=== PATIENT | female | born 1940 | race Caucasian/White ===

== ENCOUNTER 2020-07-22 14:02 | Outpatient (CLI) | payer MEDICARE, SELFPAY | END 2020-07-22 14:03 | disposition home or self-care (01) | LOC: ANHCOVIDVC 14:02 | PROVIDERS: PCP Family Medicine | DX: Z23 Encounter for immunization (principal) | CPT/HCPCS: 0001A; 91300 ==

== ENCOUNTER 2020-08-12 14:02 | Outpatient (CLI) | payer MEDICARE, SELFPAY | END 2020-08-12 14:03 | disposition home or self-care (01) | LOC: ANHCOVIDVC 14:02 | PROVIDERS: PCP Family Medicine | DX: Z23 Encounter for immunization (principal) | CPT/HCPCS: 0002A; 91300 ==

== ENCOUNTER 2021-03-02 08:23 | Outpatient (CLI) | payer MEDICARE, SELFPAY ==
--- NOTE | ~2021-03-02 | XR_ITS ---
EXAMINATION: XR abdomen/kub 1V DATE: 03/02/2021 09:21 INDICATION: Unspecified abdominal pain. TECHNIQUE: A supine view of the abdomen on 2 radiographs was obtained. COMPARISON: None. FINDINGS: There are no dilated loops of bowel. There is a small volume of stool in the colon. Calcifi cations in the pelvis are likely phleboliths. There are vascular stents in the thighs. IMPRESSION: 1. Normal bowel gas pattern. Reviewed, dictated and finalized at location A.
[2021-03-02 08:30] VITALS: PULSE 82; O2SAT 82
[2021-03-02 08:31] VITALS: O2SAT 90
[2021-03-02 08:32] VITALS: PULSE 110; O2SAT 86
[2021-03-02 08:33] VITALS: O2SAT 87
[2021-03-02 08:34] VITALS: O2SAT 91
[2021-03-02 08:45] VITALS: PULSE 83; O2SAT 93
--- NOTE | 2021-03-02 09:30 | HOMEO2EVAL ---
Evaluation was performed at [facility] Home Oxygen Evaluation RC: Home Oxygen (O2) Evaluation Start: 03/02/21 09:23 Freq: Status: Active Protocol: RPE Activity Type Activity Date Activity User E-Sign Co-Sign Detail Recorded Client Recorded Date Recorded By Document 03/02/21 08:30 ELVIRA [email or web address] 03/02/21 09:30 ELVIRA Document 03/02/21 08:31 ELVIRA [email or web address] 03/02/21 09:30 ELVIRA Document 03/02/21 08:32 ELVIRA [email or web address] 03/02/21 09:30 ELVIRA Document 03/02/21 08:33 ELVIRA [email or web address] 03/02/21 09:30 ELVIRA Document 03/02/21 08:34 ELVIRA [email or web address] 03/02/21 09:30 ELVIRA Document 03/02/21 08:45 ELVIRA [email or web address] 03/02/21 09:30 ELVIRA 03/02/21 03/02/21 03/02/21 08:30 08:31 08:32 Home O2 Evaluation Test Phase Resting Resting Exercise Oxygen Delivery Room Air Nasal Cannula Nasal Cannula Oxygen Flow Rate (L/min) 1 1 Pulse Oximetry (90-100 %) 82 L 90 86 L Pulse Rate (60-100 beats/min) 82 110 H Ambulation Distance (feet) Home Oxygen Evaluation Comments Treatment Charges O2 Evaluation - Outpatient 03/02/21 03/02/21 03/02/21 08:33 08:34 08:45 Home O2 Evaluation Test Phase Exercise Exercise Resting Oxygen Delivery Nasal Cannula Nasal Cannula Nasal Cannula Oxygen Flow Rate (L/min) 2 3 1 Pulse Oximetry (90-100 %) 87 L 91 93 Pulse Rate (60-100 beats/min) 83 Ambulation Distance (feet) 400 Home Oxygen Evaluation Comments Pt requires 1 L at rest and 3L with activity Treatment Charges
--- NOTE | 2021-03-02 09:30 | PCRCNOTE ---
Called office to receive home o2 eval order for home o2 needs. faxed over eval to office staff
== END 2021-03-02 08:24 | disposition home or self-care (01) ==
PROVIDERS: PCP Family Medicine; Referring Provider Physician Assistant; Visit Provider Family Medicine
DX: R10.9 Unspecified abdominal pain (principal)
CPT/HCPCS: 74018; 94618

== ENCOUNTER 2021-03-24 11:43 | Outpatient (CLI) | payer MEDICARE, SELFPAY ==
--- NOTE | ~2021-03-24 | XR_ITS ---
XR lumbar spine min 4V 03/24/2021 12:42 Indication: Low back pain Procedure: 5 views lumbar spine Comparison: No prior studies for comparison. Findings: There is grade 1 spondylolisthesis at L4-5. There is grade 2 spondylolisthesis at L5-S1. Th ere is disc narrowing at each of these levels. There is facet hypertrophy at these levels. There is a therosclerosis of the aorta. Osteopenia. No acute fracture is identified. Impression: 1: Moderate lower lumbar spondylosis with spondylolisthesis at L4-5 and L5-S1. Reviewed, dictated and finalized at location A. RINARY PATHOLOGIST Impression: 1: Moderate lower lumbar spondylosis with spondylolisthesis at L4-5 and L5-S1.
--- NOTE | ~2021-03-24 | XR_ITS ---
EXAMINATION: XR sacroiliac joints min 3V DATE: 03/24/2021 12:42 INDICATION: Sacrococcygeal disorders, not elsewhere classified. Low back pain. TECHNIQUE: 3 views of the sacroiliac joints were obtained. COMPARISON: None. FINDINGS: Bone alignment is normal. No fracture. There is severe lower lumbar spondylosis. The sacroi liac joints are normal. The hip joint spaces are normal. There are vascular stents in the inguinal re gions. IMPRESSION: 1. Normal sacroiliac joints. No evidence of inflammatory arthropathy. 2. Severe lower lumbar spondylosis. Reviewed, dictated and finalized at location A. RONMENTAL HEALTH AIDE
== END 2021-03-24 11:44 | disposition home or self-care (01) ==
LOC: ANHIMG 11:53
PROVIDERS: PCP Family Medicine; Visit Provider Family Medicine
DX: M53.3 Sacrococcygeal disorders, not elsewhere classified (principal); M47.896 Other spondylosis, lumbar region
CPT/HCPCS: 72110; 72202

== ENCOUNTER 2021-04-13 11:54 | Outpatient (CLI) | payer MEDICARE, SELFPAY ==
[2021-04-13 13:00] VITALS: PULSE 86; O2SAT 82
[2021-04-13 13:01] VITALS: O2SAT 84
[2021-04-13 13:02] VITALS: PULSE 90; O2SAT 90
[2021-04-13 13:05] VITALS: PULSE 105; O2SAT 87
[2021-04-13 13:07] VITALS: PULSE 108; O2SAT 91
[2021-04-13 13:15] VITALS: PULSE 85; O2SAT 93
--- NOTE | 2021-04-13 13:33 | HOMEO2EVAL ---
Evaluation was performed at [facility] Home Oxygen Evaluation RC: Home Oxygen (O2) Evaluation Start: 04/13/21 13:30 Freq: Status: Active Protocol: RPE Activity Type Activity Date Activity User E-Sign Co-Sign Detail Recorded Client Recorded Date Recorded By Document 04/13/21 13:00 ELVIRA [email or web address] 04/13/21 13:33 ELVIRA Document 04/13/21 13:01 ELVIRA [email or web address] 04/13/21 13:33 ELVIRA Document 04/13/21 13:02 ELVIRA [email or web address] 04/13/21 13:33 ELVIRA Document 04/13/21 13:05 ELVIRA [email or web address] 04/13/21 13:33 ELVIRA Document 04/13/21 13:07 ELVIRA [email or web address] 04/13/21 13:33 ELVIRA Document 04/13/21 13:15 ELVIRA [email or web address] 04/13/21 13:33 ELVIRA 04/13/21 04/13/21 04/13/21 13:00 13:01 13:02 Home O2 Evaluation Test Phase Resting Resting Resting Oxygen Delivery Room Air Nasal Cannula Nasal Cannula Oxygen Flow Rate (L/min) 1 2 Pulse Oximetry (90-100 %) 82 L 84 L 90 Pulse Rate (60-100 beats/min) 86 90 Home Oxygen Evaluation Comments Treatment Charges O2 Evaluation - Outpatient 04/13/21 04/13/21 04/13/21 13:05 13:07 13:15 Home O2 Evaluation Test Phase Exercise Exercise Resting Oxygen Delivery Nasal Cannula Nasal Cannula Nasal Cannula Oxygen Flow Rate (L/min) 2 3 2 Pulse Oximetry (90-100 %) 87 L 91 93 Pulse Rate (60-100 beats/min) 105 H 108 H 85 Home Oxygen Evaluation Comments Pt requires home oxygen --- 2 at rest and 3 with activity/ exertion Treatment Charges
--- NOTE | 2021-04-13 13:34 | PCRCNOTE ---
home o2 eval faxed to [facility] office staff
== END 2021-04-13 11:55 | disposition home or self-care (01) ==
LOC: ANHPFT 11:56
PROVIDERS: PCP Family Medicine; Visit Provider Family Medicine
DX: J44.9 Chronic obstructive pulmonary disease, unspecified (principal); R09.02 Hypoxemia
CPT/HCPCS: 94618

== ENCOUNTER 2021-05-26 08:28 | Outpatient (CLI) | payer MEDICARE, SELFPAY ==
--- NOTE | ~2021-05-26 | CT_ITS ---
EXAMINATION: CT diagnostic chest wo con EXAM DATE: 05/26/2021 10:42 INDICATION: R06.00 - Dyspnea, unspecified. TECHNIQUE: Spiral CT of the chest without contrast. Axial, coronal and sagittal images of the chest were reviewed. Coronal maximum intensity pixel images of chest reviewed. The dose-length product ( DLP) for this examination was 996.03 mGy-cm. The exposure was tailored according to patient size (au to mA exposure control), and iterative reconstruction (ASIR) was used as additional dose reduction te chnique. There is no prior study for comparison. FINDINGS: Subsegmental linear lingular, right middle lobe atelectasis. Trace right pleural effusion . Tracheobronchial tree is patent. There is mild emphysema. No consolidation. There is no mediastina l, hilar or axillary lymphadenopathy. There is no pneumothorax. There is cardiomegaly. The main, central pulmonary arteries are dilated which can indicate elevated pulmonary arterial pressure, pulmo nary arterial hypertension. There is pulmonary vascular congestion. There is mild coronary arterial calcification, arterial sclerosis. Small amount of perihepatic ascites. There is small sliding sindy roesophageal hiatal hernia. There is thoracic spondylosis without osteoblastic or osteolytic lesions identified. Mild to moderate compression fracture of T8, mild at T6 and T4. These appear chronic. IMPRESSION: 1. Cardiomegaly, pulmonary vascular congestion. Dilated pulmonary arteries. 2. Subsegmental right middle lobe, lingular atelectasis. 3. Trace right pleural effusion. Small ascites. 4. Mild emphysema. Reviewed, dictated and finalized at location A. AL HEALTH PROGRAM DIRECTOR
--- NOTE | 2021-05-26 08:43 | ECHO_ITS ---
Patient Info Name: Elda Dalal Age: 80 years : 1940 Gender: Female Ht: 64 in Wt: 240 lbs BSA: 2.27 m2 HR: 93 bpm BP: 159 / 78 mmHg Technical Quality: Poor Exam Date: 05/26/2021 8:52 AM [facility] Status: [facility]patient Admit Date: 05/26/2021 Staff Ordering Physician: Keya Ceballos MD Fuse Cutter: Sherrell Barron RDCS Attending Provider: Keya Ceballos MD Referring Physician: Tucker WALTERS; Exam Type: CA echo dop color flow w con Study Info Indications R60.9 - Edema, unspecified Complete two-dimensional, color flow and Doppler transthoracic echocardiogram is performed with contrast to opacify the left ventricle and to improve the deliniation of the left ventricle endocardial borders. Contrast/Agitated Saline Contrast/Ag. Saline: Definity Amount: 2.00 ml Administered By: Bryan Kruger, RN New IV Access: Antecubital Space and Left Site Condition: IV removed Reason for Poor Study: patient body habitus Summary 1. Technically suboptimal study due to poor sonographic images. 2. Left ventricular chamber dimension is normal. 3. Definity contrast administered improved wall motion interpretation. 4. Left ventricular systolic function is normal, estimated at 65-70%. 5. The left ventricular diastolic function is normal. 6. E/e' 7 is not elevated. 7. Right ventricular chamber dimension is severely enlarged. 8. Left atrial chamber dimension is moderately enlarged. 9. Right atrial chamber dimension is severely enlarged. 10. There is mild mitral valve regurgitation. 11. Severe pulmonary hypertension, estimated pulmonary arterial systolic pressure is 65 mmHg. 12. Dilated inferior vena cava with >50% collapse upon inspiration consistent with elevated right atrial pressure, 10 mmHg. Left Ventricle E/e' 7 is not elevated. Technically suboptimal study due to poor sonographic images. Definity contrast administered improved wall motion interpretation. Left ventricular chamber dimension is normal. Left ventricular systolic function is normal, estimated at 65-70%. The left ventricular diastolic function is normal. Right Ventricle Right ventricular systolic function is normal and with normal TAPSE 2.6 cm. Right ventricular chamber dimension is severely enlarged. Left Atria Left atrial chamber dimension is moderately enlarged. Right Atria Right atrial chamber dimension is severely enlarged. Aortic Valve The aortic valve is probable trileaflet. There is no aortic valve stenosis. There is no aortic valve regurgitation. Pulmonic Valve There is no pulmonic regurgitation. Mitral Valve There is no mitral valve stenosis. There is mild mitral valve regurgitation. Tricuspid Valve There is no tricuspid valve regurgitation. Severe pulmonary hypertension, estimated pulmonary arterial systolic pressure is 65 mmHg. Pericardium/Pleural There is no pericardial effusion. Inferior Vena Cava Dilated inferior vena cava with >50% collapse upon inspiration consistent with elevated right atrial pressure, 10 mmHg. Aorta The aortic root size at the sinus of Valsalva is normal. Left Ventricular Outflow Tract Name Value Normal LVOT 2D
[2021-05-26] MEDS: PERFLUTREN LIPID MICROSPHERES 1.5 ML VIAL DILUTED TO 10 ML TOTAL VOLUME IV PUSH (10:51)
== END 2021-05-26 08:29 | disposition home or self-care (01) ==
PROVIDERS: PCP Family Medicine; Visit Provider Family Medicine
DX: R06.00 Dyspnea, unspecified (principal); R60.9 Edema, unspecified; I51.7 Cardiomegaly; J43.9 Emphysema, unspecified
CPT/HCPCS: 71250; C8929; Q9957

== ENCOUNTER 2021-06-01 07:50 | Outpatient (CLI) | payer MEDICARE, SELFPAY ==
--- NOTE | ~2021-06-01 | US_ITS ---
EXAMINATION: US venous doppler [facility] DATE: 06/01/2021 10:22 INDICATION: Lower limb swelling TECHNIQUE: Grayscale ultrasound images without and with compression and Doppler ultrasound images of the bilateral lower extremity veins were obtained. COMPARISON: None. FINDINGS: The visualized portions of right common femoral vein, profunda (deep) femoral vein, femoral vein, pop liteal vein, posterior tibial veins, peroneal veins, gastrocnemius vein and greater saphenous vein ou tflow are patent. The visualized portions of left common femoral vein, profunda femoral vein, femoral vein, popliteal v ein, posterior tibial veins, peroneal veins, gastrocnemius vein and greater saphenous vein outflow ar e patent. IMPRESSION: 1. No deep venous thrombosis in either lower limb. Reviewed, dictated and finalized at location A. LINER
== END 2021-06-01 07:51 | disposition home or self-care (01) ==
LOC: ANHIMG 07:52
PROVIDERS: PCP Family Medicine; Visit Provider Family Medicine
DX: R60.9 Edema, unspecified (principal); R06.00 Dyspnea, unspecified
CPT/HCPCS: 93970

== ENCOUNTER 2021-09-06 08:05 | Outpatient (CLI) | payer MEDICARE, SELFPAY ==
[2021-09-06] VITALS (7 sets, daily range): PULSE 87–124; O2SAT 85–91
--- NOTE | 2021-09-06 11:22 | HOMEO2EVAL ---
Evaluation was performed at [facility] Home Oxygen Evaluation RC: Home Oxygen (O2) Evaluation Start: 09/06/21 11:11 Freq: Status: Active Protocol: RPE Activity Type Activity Date Activity User E-Sign Co-Sign Detail Recorded Client Recorded Date Recorded By Document 09/06/21 08:30 DJO [email or web address] 09/06/21 11:22 DJO Document 09/06/21 08:35 DJO [email or web address] 09/06/21 11:22 DJO Document 09/06/21 08:40 DJO [email or web address] 09/06/21 11:22 DJO Document 09/06/21 08:45 DJO [email or web address] 09/06/21 11:22 DJO Document 09/06/21 08:50 DJO [email or web address] 09/06/21 11:22 DJO Document 09/06/21 08:55 DJO [email or web address] 09/06/21 11:22 DJO Document 09/06/21 09:10 DJO [email or web address] 09/06/21 11:22 DJO 09/06/21 09/06/21 09/06/21 08:30 08:35 08:40 Home O2 Evaluation Test Phase Resting Resting Resting Oxygen Delivery Room Air Nasal Cannula Nasal Cannula Oxygen Flow Rate (L/min) 1 2 Pulse Oximetry (90-100 %) 85 L 86 L 87 L Pulse Rate (60-100 beats/min) 87 87 90 Rate of Perceived Exertion (PE) Ambulation Distance (feet) Ambulation Distance (meters) Treatment Charges O2 Evaluation - Outpatient 09/06/21 09/06/21 09/06/21 08:45 08:50 08:55 Home O2 Evaluation Test Phase Resting Resting Exercise Oxygen Delivery Nasal Cannula Nasal Cannula Nasal Cannula Oxygen Flow Rate (L/min) 3 4 4 Pulse Oximetry (90-100 %) 88 L 90 87 L Pulse Rate (60-100 beats/min) 87 87 124 H Rate of Perceived Exertion (PE) 19 Very, Very Hard Ambulation Distance (feet) 75 Ambulation Distance (meters) 22.85 Treatment Charges 09/06/21 09:10 Home O2 Evaluation Test Phase Resting Oxygen Delivery Nasal Cannula Oxygen Flow Rate (L/min) 4 Pulse Oximetry (90-100 %) 91 Pulse Rate (60-100 beats/min) 90 Rate of Perceived Exertion (PE) Ambulation Distance (feet) Ambulation Distance (meters) Treatment Charges
--- NOTE | 2021-09-06 11:24 | PCRCNOTE ---
PT CAME IN FOR A PULMONARY FUNCTION TEST AND WAS UNABLE TO DO TESTING. PT VERY SHORT OF BREATH AND GASPING AFTER HOME O2 EVAL. PT STATES SHE IS TOO SHORT OF BREATH FOR TESTING. DR. POST'S OFFICE NOTIFIED.
== END 2021-09-06 08:06 | disposition home or self-care (01) ==
PROVIDERS: PCP Family Medicine; Visit Provider Internal Medicine Pulmonary Disease
DX: J44.9 Chronic obstructive pulmonary disease, unspecified (principal)
CPT/HCPCS: 94618

== ENCOUNTER 2021-11-02 08:07 | Outpatient (CLI) | payer MEDICARE, SELFPAY ==
--- NOTE | ~2021-11-02 | CT_ITS ---
EXAMINATION: CTA chest PE protocol DATE: 11/02/2021 08:45 INDICATION: Dyspnea. History of COPD. TECHNIQUE: Computed tomography angiography (CTA) of the chest was performed with 100 mL Omnipaque-350 intravenous contrast timed to evaluate the pulmonary arteries. Coronal maximum intensity projection 3D-reconstructions were created by the technologist. Automated exposure control and iterative reconst ruction technique were employed. Exam dose: 963.29 mGy-cm total exam DLP. COMPARISON: 05/26/2021 CTA chest FINDINGS: There is diagnostic contrast enhancement of the pulmonary arteries and no evidence of pulmo nary embolism. Prominent cardiomegaly. No pericardial effusion. There is extensive calcification of the thoracic aorta but no thoracic aortic aneurysm. Slight right pleural effusion. Mild nonspecific bilateral hilar lymphadenopathy, likely reactive. There are patchy groundglass infil trates throughout the lungs, with some atelectasis or scarring of the right middle lobe medial segmen t and lingula. Mild ascites. There is severe degenerative disc disease at C5-6 and C6-7. Compression fracture from is a T4, T6 and to a greater extent T8 are noted. These appear stable since 05/26/2021. IMPRESSION: No evidence of pulmonary embolism Prominent cardiomegaly, patchy diffuse bilateral groundglass infiltrates suggesting pulmonary edema, small right pleural effusion. Pneumonia is not excluded Lingular and medial segment middle lobe atelectasis Chronic T4, T6 and T8 compression fracture deformities Reviewed, dictated and finalized at Location A. Reviewed, dictated and finalized at location A. IMPRESSION: No evidence of pulmonary embolism Prominent cardiomegaly, patchy diffuse bilateral groundglass infiltrates sugges ting pulmonary edema, small right pleural effusion. Pneumonia is not excluded Lingular and medial segment middle lobe atelectasis Chronic T4, T6 and T8 compression fracture deformities
[2021-11-02 08:37] LABS: Estimated Glomerular Filt Rate 43
== END 2021-11-02 08:08 | disposition home or self-care (01) ==
PROVIDERS: PCP Family Medicine; Visit Provider Family Medicine
DX: I27.20 Pulmonary hypertension, unspecified (principal); R06.00 Dyspnea, unspecified
CPT/HCPCS: 71275; Q9967

== ENCOUNTER 2021-11-03 13:17 | Inpatient (IN) | payer MEDICARE, SELFPAY ==
[2021-11-03] VITALS (14 sets, daily range): BP systolic 109–149; BP diastolic 51–72; PULSE 80–105; RESP 18–23; TEMP 36.6–37; O2SAT 88–97; BMI 51.5
--- NOTE | ~2021-11-03 | US_ITS ---
EXAMINATION: US art doppler w press LE BI DATE: 11/03/2021 17:04 INDICATION: Bilateral lower limb pain TECHNIQUE: Doppler waveforms of the brachial and lower extremity arteries were obtained. Patient term inated the study prior to obtaining segmental pressures. COMPARISON: None. FINDINGS: There are biphasic waveforms throughout the arteries of the right lower limb with mildly delayed syst olic upstrokes at the right superficial femoral arteries, borderline delayed upstrokes at the right c ommon femoral artery and with normal systolic upstrokes at the right popliteal, posterior tibial and dorsalis pedis arteries. Biphasic waveforms with brisk systolic upstrokes and left common femoral, freitas perficial femoral, posterior tibial and dorsalis pedis arteries. IMPRESSION: 1. Significantly limited study with patient terminated the study prior to obtaining segmental pressur es precluding assessment of ABIs and TBI's. 2. Delayed systolic upstrokes at the right superficial femoral artery and borderline delayed upstroke s at the right common femoral artery suggesting more proximal arterial occlusive disease. Reviewed, dictated and finalized at location B. IMPRESSION: 1. Significantly limited study with patient terminated the study prior to obtai devorah segmental pressures precluding assessment of ABIs and TBI's. 2. Delayed systolic upstrokes at the right superficial femoral artery and borde rline delayed upstrokes at the right common femoral artery suggesting more prox imal arterial occlusive disease.
--- NOTE | ~2021-11-03 | US_ITS ---
EXAMINATION: US venous doppler [facility] DATE: 11/04/2021 09:13 INDICATION: edema . TECHNIQUE: Grayscale images without and with compression and Doppler images of the bilateral lower ex tremity veins were obtained. COMPARISON: None FINDINGS: Patient unable to tolerate compression throughout most examination. The bilateral popliteal veins are patent and adequately assessed. No other vein in either lower extremity was able to be thoroughly ev aluated, however no visible thrombus detected and no abnormality to waveform or augmentation. 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 . IMPRESSION: 1. Nondiagnostic ultrasound evaluation of the bilateral lower extremities. 2. No popliteal vein DVT (these are the only veins fully evaluated) 3. 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 Reviewed, dictated and finalized at location K.
--- NOTE | ~2021-11-03 | XR_ITS ---
EXAMINATION: XR chest 1V portable INDICATION: Cough and shortness of breath TECHNIQUE: Portable AP chest at 1403 hours COMPARISON: Chest CT from yesterday FINDINGS: There are diffuse interstitial and airspace opacities throughout all lung zones. Cardiomega ly is noted. No pleural effusion or pneumothorax. There is calcified atherosclerosis. IMPRESSION: 1. Diffuse lung disease, consistent with pneumonia and/or pulmonary edema. Reviewed, dictated and finalized at location F.
--- NOTE | 2021-11-03 13:28 | ECG_ITS ---
Measurements Intervals [place] Rate: 84 P: 55 MI: 130 QRS: 64 QRSD: 93 T: 50 QT: 383 QTc: 453 Interpretive Statements SINUS RHYTHM LOW QRS VOLTAGE IN PRECORDIAL LEADS [QRS DEFLECTION < 1.0 mV IN CHEST LEADS] NO PREVIOUS ECG AVAILABLE FOR COMPARISON Electronically Signed On 11-03-2021 16:53:51 CDT by Wolf Rizzo M.D.
--- NOTE | 2021-11-03 13:44 | ED.GENADULT ---
HPI - General Adult General Chief complaint: Unspecified Stated complaint: edema Time Seen by Provider: 11/03/21 13:18 Source: RN notes reviewed History of Present Illness HPI narrative: Patient presents emergency department from home for increased swelling. Patient states she is have aggressively worsening swelling in her bilateral lower extremities over the past month states been associated with worsening shortness of breath that is worse with movement. States that she has a history of COPD and is chronically on 6 L nasal cannula at all times. Patient states she had been on Lasix before in the past but had felt like it was not draining for and stopped taking Lasix several months ago. She denies any fevers or chills chest pain abdominal pain nausea vomiting or any other symptoms Related Data Home Medications Medication Instructions Recorded Confirmed aspirin 81 mg tablet,delayed 81 mg PO DAILY 05/17/19 11/03/21 release (Miguel Low Dose Aspirin) amlodipine 10 mg tablet 10 mg PO DAILY 11/03/21 11/03/21 celecoxib 100 mg capsule 100 mg PO DAILY PRN Muscle Pain 11/03/21 11/03/21 Allergies Allergy/AdvReac Type Severity Reaction Status Date / Time No Known Allergies Allergy Verified 11/03/21 13:49 Review of Systems Review of Systems: Gen.: Denies fevers or chills Eyes: Denies eye pain or visual change ENT: Denies congestion Respiratory: See HPI CV: Denies chest pain or palpitations GI: Denies abdominal pain nausea, emesis or diarrhea Musculoskeletal: Denies back pain or muscle pain reports edema Neuro: Denies numbness, tingling, weakness or focal weakness Skin: Denies rash Except as documented, all other systems reviewed and negative [facility] Past Medical History Medical History Chronic obstructive pulmonary disease Chronic respiratory failure with hypoxia, on home oxygen therapy Depression Glaucoma Hyperlipidemia Hypertension Lumbar disc disease Lymphedema Peripheral vascular disease Pulmonary hypertension Surgical History Surgical History (Updated 11/03/21 @ 16:32 by Cecily Sandoval PA-C) History of bilateral carotid endarterectomy History of bilateral cataract extraction Family History Family History (Updated 11/03/21 @ 18:40 by Charlee Anand RN) Mother Diabetes mellitus Kidney failure Father Acute myocardial infarction Social History Social History (Reviewed 11/03/21 @ 20:20 by JUAN Linder Social History: Surrogate decision maker: Code status: Smoking packs per day: 1 Smoking cigarettes per day: 20.0 Years smoked: 35 Smoking pack-years: 35.00 Smoking status: Former smoker Second hand tobacco smoke exposure: No Alcohol intake: never Substance use: never Substance use type: does not use Spiritual care concerns: No Exam Narrative: APPEARANCE: No acute distress, nontoxic, resting in bed EYES: EOMI HEENT: Normocephalic, atraumatic, OMM RESPIRATORY: No respiratory distress crackles in the bilateral lung bases CARDIOVASCULAR: Regular rate and rhythm without murmurs rubs or gallops. ABDOMINAL: Soft, nontender, nondistended, no rebound or guarding MUSCULOSKELETAl: Moves all extremities. No clubbing, cyanosis 3+ edema the bilateral lower extremities, bilateral posterior tibialis pulse 2+ unable to Doppler bilateral dorsalis pedis pulse NEURO: Awake and alert. Following commands, speech normal, no focal deficits SKIN:: Warm, dry. Circular superficial ulcerative wound on the left anterior lower leg with mild venous bleeding no surrounding signs of infection PSYCHIATRIC: Normal affect/mood, Course Course Emergency Course: Discussed with PAIGE Tony for Dr. López presentation work-up agrees with admission. We did discuss Dopplers and does request a arterial lower extremity Doppler at this time Discussed with patient and family results of workup and diagnosis. Discussed ne
[2021-11-03 14:05] LABS: Basophils Percent Auto 0.4 % (0.2-1.2); Eosinophils Absolute Auto 0.2 K/mm3 (0-0.3); Eosinophils Percent Auto 2.4 % (0-4.4); Hematocrit 37.7 % (37.0-47.0); Hemoglobin 11.5 g/dL (12.0-15.0); Immature Granulocyte Absolute 0.06 K/mm3 (0.00-0.031); Immature Granulocyte Percent A 0.6 % (0-0.5); Immature Platelet Fraction Pct 5.6 % (0.9-11.2); Lymphocytes Absolute Auto 1.02 K/mm3 (0.9-3.2); Lymphocytes Percent Auto 10.8 % (18.3-44.2); Mean Corpuscular HGB Conc 30.5 g/dl (32-36); Mean Corpuscular Hemoglobin 28.7 pg (26-34); Monocytes Absolute Auto 0.9 K/mm3 (0.1-0.6); Monocytes Percent Auto 9.5 % (2.6-8.5); Neutrophils Absolute Auto 7.2 K/mm3 (1.3-6.7); Neutrophils Percent Auto 76.3 % (45.5-73.1); Platelet Count Result 101 k/mm3 (150-375); Red Blood Count 4.01 M/mm3 (4.2-5.4); Red Cell Distribution Width 16.5 % (11.5-14.5); White Blood Count 9.4 K/mm3 (4.5-10.0)
[2021-11-03 14:11] LABS: Lactic Acid Reflex 2.2 mmol/L (0.7-2.0)
[2021-11-03 14:12] LABS: Alanine Aminotransferase 16 U/L (6-35); Albumin Level 4.2 g/dL (3.5-5.1); Alkaline Phosphatase 91 U/L (38-126); Anion Gap 10 mmol/L (8-16); Aspartate Amino Transferase 25 U/L (14-36); Bilirubin,Total 1.4 mg/dL (0.2-1.3); Blood Urea Nitrogen 27 mg/dL (7-17); Calcium 8.9 mg/dL (8.4-10.2); Carbon Dioxide 23 mmol/L (22-30); Chloride 105 mmol/L (98-107); Estimated CRCL calculation 49 ml/min; Estimated Glomerular Filt Rate 48; Glucose 107 mg/dL (65-110); Potassium 3.9 mmol/L (3.4-5.0); Sodium 138 mmol/L (137-145)
[2021-11-03 14:18] LABS: INR 1.2; Prothrombin Time 14.3 Seconds (11.1-14.7)
[2021-11-03 14:19] LABS: Partial Thromboplastin Time 26.9 SECONDS (22.3-36.8)
[2021-11-03 14:24] LABS: NT Pro B Type Natriuretic Pept 2120 pg/mL (5-100); Troponin I 0.014 ng/mL (0.000-0.034)
[2021-11-03] MEDS: ALBUTEROL SULFATE NEB 2.5 MG/3 ML INH 5 MG INHALATION (14:39)
[2021-11-03] MEDS: IPRATROPIUM BR 0.02% INH SOLN 0.5 MG/2.5 ML VIAL INHALATION (14:40)
[2021-11-03] MEDS: FUROSEMIDE INJ 40 MG/4 ML VIAL IV PUSH (15:09)
[2021-11-03 15:19] LABS: SARS-CoV-2 RNA PCR Negative
--- NOTE | 2021-11-03 16:38 | PC.NURSE ---
Pt taken to ultrasound at this time
--- NOTE | 2021-11-03 16:45 | PM.IMHP ---
H&P: HPI History of Present Illness Date/Time: 11/03/21 16:45 Chief Complaint: Shortness of breath and swelling. Narrative: This is a pleasant 81-year-old female with chronic hypoxic respiratory failure on home oxygen, severe pulmonary hypertension, chronic obstructive pulmonary disease, peripheral vascular disease, hypertension, and other comorbidities who presented to the ED from home for evaluation of worsening shortness of breath from baseline and swelling. She has been retaining a significant amount of fluid and over the last year she has gained about 20 to 25 lb. She was prescribed Lasix 40 mg twice daily by her doctor however she stops taking that at least a month ago as she did not think it was helping. She now has swelling up into her breasts and gradually over the last couple of weeks she has had increasing dyspnea though at baseline she is only able to walk perhaps 10 ft before getting winded. On arrival to the emergency department her SpO2 was in the mid 80s on her usual 6 L and she is currently on a Ventimask with improvement in her saturations. Chest x-ray today shows diffuse lung disease consistent with pneumonia and/or pulmonary edema and she is being admitted in this setting. She gives no history to suggest pneumonia and specifically denies fever, chills, sweats, sinus congestion, sore throat, cough, malaise, and sick contacts. She also denies chest pain, pleuritic pain, and palpitations. Interestingly she denies overt orthopnea. Review of Systems Review of Systems: 12 systems were reviewed. Occasional cough, productive maybe 1 time a week, and that is unchanged. No syncope or near syncope. No dysuria or noticeable change in urine output. She denies diarrhea. She has chronic leg pain presumably due to claudication. She has refused further lower extremity procedures recommended by her vascular surgeon. Except as documented, all other systems were reviewed and are negative. [facility] Past Medical History Medical History (Updated 11/03/21 @ 21:05 by Cecily Sandoval PA-C) Chronic kidney disease, stage 3 Creatinine ranges between 0.99 and 1.20. Chronic obstructive pulmonary disease Chronic respiratory failure with hypoxia, on home oxygen therapy Cor pulmonale Echocardiogram in May 2021 showed normal left ventricular systolic function with an estimated EF of 65 to 70%, severely enlarged right atria and ventricle and severe pulmonary hypertension with an estimated PA SP of 65 mmHg. Depression Glaucoma Hyperlipidemia Hypertension Lumbar disc disease Lymphedema Peripheral vascular disease Pulmonary hypertension Surgical History Surgical History (Updated 11/03/21 @ 20:57 by Cecily Sandoval PA-C) History of bilateral cataract extraction History of procedure for peripheral vascular disease Bilateral lower extremity stents. Family History Family History Mother Diabetes mellitus Kidney failure Father Acute myocardial infarction Social History Social History (Updated 11/03/21 @ 20:58 by Cecily Sandoval PA-C) Social History: Surrogate decision maker: Lion Porter, son. Code status: Full code. Smoking packs per day: 1 Smoking cigarettes per day: 20.0 Years smoked: 35 Smoking pack-years: 35.00 Smoking status: Former smoker Second hand tobacco smoke exposure: No Alcohol intake: never Substance use: never Substance use type: does not use Living arrangements: with family Additional living arrangements comments: The patient lives with her in [place]. Occupation/Education: retired Spiritual care concerns: No Meds Home Medications and Allergies Home Medications Medication Instructions Recorded Confirmed Type aspirin 81 mg tablet,delayed 81 mg PO DAILY 05/17/19 11/03/21 History release (Miguel Low Dose Aspirin) albuterol sulfate 2.5 mg/3 mL 2.5 mg (3 mL) inhalation Q4-6H PRN 07/14
[2021-11-03 16:59] LABS: Reflex Lactic Acid Yes or No Add Lactic
[2021-11-03 17:28] LABS: Troponin I 0.016 ng/mL (0.000-0.034)
--- NOTE | 2021-11-03 18:00 | ADMGEN ---
This patient, Elda Dalal, was admitted to Medical Room 348-. Patient/family oriented to hospital policies and general routines including ID bracelet, bed and alarms, visiting hours, pain management, procedures, bathroom and other care routines, personal items, smoking policy, room service/diet, and visiting hours. Information on how to activate the Rapid Response Team has been discussed. Patient/Family are encouraged to report perceived risks to care and to ask questions if they do not understand what they are told or what they should do.
[2021-11-03 18:33] LABS: Lactic Acid 1.7 mmol/L (0.7-2.0)
[2021-11-03] MEDS: HYDROcodone/acetaminophen (*CRX) 5-325 MG TABLET 1 TAB PO (20:58)
[2021-11-03 22:28] LABS: Troponin I 0.024 ng/mL (0.000-0.034)
[2021-11-03] MEDS: ROSUVASTATIN 5 MG TABLET PO (22:43)
[2021-11-03] MEDS: ZOLPIDEM TARTRATE (*CRX) 5 MG TABLET PO (23:43)
[2021-11-04] VITALS (12 sets, daily range): BP systolic 99–119; BP diastolic 59–81; PULSE 78–89; RESP 18–20; TEMP 36.6–36.9; O2SAT 90–97
[2021-11-04 06:14] LABS: Basophils Absolute Auto 0.1 K/mm3 (0.0-0.1); Basophils Percent Auto 0.7 % (0.2-1.2); Eosinophils Absolute Auto 0.4 K/mm3 (0-0.3); Eosinophils Percent Auto 4.2 % (0-4.4); Hematocrit 36.7 % (37.0-47.0); Hemoglobin 11.2 g/dL (12.0-15.0); Immature Granulocyte Absolute 0.05 K/mm3 (0.00-0.031); Immature Granulocyte Percent A 0.6 % (0-0.5); Lymphocytes Absolute Auto 0.98 K/mm3 (0.9-3.2); Lymphocytes Percent Auto 11.4 % (18.3-44.2); Mean Corpuscular HGB Conc 30.5 g/dl (32-36); Mean Corpuscular Hemoglobin 29.1 pg (26-34); Mean Corpuscular Volume 95.3 fl (80-100); Mean Platelet Volume 12.1 fl (7.4-10.4); Monocytes Percent Auto 11.8 % (2.6-8.5); Neutrophils Absolute Auto 6.1 K/mm3 (1.3-6.7); Neutrophils Percent Auto 71.3 % (45.5-73.1); Platelet Count Result 96 k/mm3 (150-375); Red Blood Count 3.85 M/mm3 (4.2-5.4); Red Cell Distribution Width 16.7 % (11.5-14.5); White Blood Count 8.6 K/mm3 (4.5-10.0)
[2021-11-04] MEDS: HYDROcodone/acetaminophen (*CRX) 5-325 MG TABLET 1 TAB PO ×2 (06:22→21:12)
[2021-11-04 06:33] LABS: Alanine Aminotransferase 13 U/L (6-35); Albumin Level 3.8 g/dL (3.5-5.1); Alkaline Phosphatase 75 U/L (38-126); Anion Gap 5 mmol/L (8-16); Aspartate Amino Transferase 25 U/L (14-36); Bilirubin,Total 1.6 mg/dL (0.2-1.3); Blood Urea Nitrogen 24 mg/dL (7-17); Calcium 8.4 mg/dL (8.4-10.2); Carbon Dioxide 25 mmol/L (22-30); Chloride 106 mmol/L (98-107); Estimated CRCL calculation 53 ml/min; Estimated Glomerular Filt Rate 53; Glucose 92 mg/dL (65-110); Potassium 4.2 mmol/L (3.4-5.0); Sodium 136 mmol/L (137-145)
--- NOTE | 2021-11-04 08:14 | PC.NURSE ---
pt to US via stretcher
--- NOTE | 2021-11-04 09:05 | PC.NURSE ---
Addendum entered by Kera Vo RN 11/04/21 10:13: Call to RT for PRN treatment Original Note: pt returned from US and assisted to chair
[2021-11-04] MEDS: ALBUTEROL SULFATE NEB 2.5 MG/3 ML INH INHALATION (09:11)
[2021-11-04] MEDS: amLODIPine BESYLATE 5 MG TABLET 10 MG PO (09:31)
[2021-11-04] MEDS: CELECOXIB 100 MG CAPSULE PO (09:32)
[2021-11-04] MEDS: ASPIRIN 81 MG ENTERIC TABLET PO (09:32)
[2021-11-04] MEDS: CLOPIDOGREL BISULFATE 75 MG TABLET PO (09:32)
[2021-11-04] MEDS: FUROSEMIDE INJ 40 MG/4 ML VIAL IV PUSH ×2 (09:32→18:02)
--- NOTE | 2021-11-04 14:53 | PM.IMPN ---
Progress Note: A&P Assessment and Plan (1) Anasarca: Code(s): R60.1 - Generalized edema Status: Acute Assessment and Plan: Weight is up at least 20 lb over last 1 year and she has significant pitting edema to the breasts. Unfortunately she has not been taking her furosemide as an outpatient as she did not think it was helping much. At the time my evaluation she has had 1 L of urine out after receiving IV Lasix in the ER thus will continue with IV diuresis with close monitoring of volume status, I/O, and renal function. 11/04/2021 interval history: patient with anasarca patient is responding with IV Lasix states feeling much better and urinating more, swelling is also receding, patient has preserved LV function and normal diastolic function on last echo done on May of this year, patient albumin is low normal, will continue the present management will have a PT OT evaluate the patient, place the patient on low-salt diet. (2) Cor pulmonale: Code(s): I27.81 - Cor pulmonale (chronic) Status: Acute Assessment and Plan: Plan is as detailed above. (3) Chronic respiratory failure with hypoxia, on home oxygen therapy: Code(s): J96.11 - Chronic respiratory failure with hypoxia; Z99.81 - Dependence on supplemental oxygen Status: Acute Assessment and Plan: Placed on Venti mask on arrival to the ED though it looks like she has been weaned to her baseline oxygen requirement. (4) Chronic kidney disease, stage 3: Code(s): N18.30 - Chronic kidney disease, stage 3 unspecified Status: Acute Assessment and Plan: Creatinine is stable on review of previous labs and will be monitored closely while diuresing. (5) Chronic obstructive pulmonary disease: Code(s): J44.9 - Chronic obstructive pulmonary disease, unspecified Status: Acute Assessment and Plan: No acute exacerbation. Continue maintenance inhalers and nebulizers as needed. (6) Peripheral vascular disease: Code(s): I73.9 - Peripheral vascular disease, unspecified Status: Acute Assessment and Plan: Patient reports chronic pain in her legs which is unchanged. She has declined further intervention though suggested by her vascular surgeon. No evidence of acute limb ischemia. (7) Hypertension: Code(s): I10 - Essential (primary) hypertension Status: Acute Assessment and Plan: Blood pressures were reviewed and they are well controlled. Continue antihypertensives and monitor daily. Subjective Date/time seen: 11/04/21 14:53 HPI: This is a pleasant 81-year-old female with chronic hypoxic respiratory failure on home oxygen, severe pulmonary hypertension, chronic obstructive pulmonary disease, peripheral vascular disease, hypertension, and other comorbidities who presented to the ED from home for evaluation of worsening shortness of breath from baseline and swelling. She has been retaining a significant amount of fluid and over the last year she has gained about 20 to 25 lb. She was prescribed Lasix 40 mg twice daily by her doctor however she stops taking that at least a month ago as she did not think it was helping. She now has swelling up into her breasts and gradually over the last couple of weeks she has had increasing dyspnea though at baseline she is only able to walk perhaps 10 ft before getting winded. On arrival to the emergency department her SpO2 was in the mid 80s on her usual 6 L and she is currently on a Ventimask with improvement in her saturations. Chest x-ray today shows diffuse lung disease consistent with pneumonia and/or pulmonary edema and she is being admitted in this setting. She gives no history to suggest pneumonia and specifically denies fever, chills, sweats, sinus congestion, sore throat, cough, malaise, and sick contacts. She also denies chest pain, pleuritic pain, and palpitations. Interestingly she denies overt orthopnea. 11/04/2021
[2021-11-04] MEDS: SILVERGEL (ELTA) 45 ML 1 APPLIC TOPICAL (18:08)
[2021-11-04] MEDS: FLUTICASONE/SALMETEROL 230-21 MCG INHALER 1 PUFF 2 PUFF INHALATION (20:25)
[2021-11-05] VITALS (11 sets, daily range): BP systolic 94–106; BP diastolic 30–51; PULSE 74–91; RESP 12–20; TEMP 36.2–36.9; O2SAT 94–98
[2021-11-05 06:19] LABS: Anion Gap 6 mmol/L (8-16); Blood Urea Nitrogen 21 mg/dL (7-17); Calcium 8.2 mg/dL (8.4-10.2); Carbon Dioxide 28 mmol/L (22-30); Chloride 103 mmol/L (98-107); Estimated CRCL calculation 53 ml/min; Estimated Glomerular Filt Rate 53; Glucose 97 mg/dL (65-110); Potassium 3.4 mmol/L (3.4-5.0); Sodium 137 mmol/L (137-145)
[2021-11-05] MEDS: FLUTICASONE/SALMETEROL 230-21 MCG INHALER 1 PUFF 2 PUFF INHALATION ×2 (08:48→20:14)
[2021-11-05] MEDS: POTASSIUM CHLORIDE 20 MEQ TABLET 40 MEQ PO (09:26)
[2021-11-05] MEDS: amLODIPine BESYLATE 5 MG TABLET 10 MG PO (09:27)
[2021-11-05] MEDS: CELECOXIB 100 MG CAPSULE PO (09:27)
[2021-11-05] MEDS: CLOPIDOGREL BISULFATE 75 MG TABLET PO (09:27)
[2021-11-05] MEDS: ASPIRIN 81 MG ENTERIC TABLET PO (09:28)
[2021-11-05] MEDS: FUROSEMIDE INJ 40 MG/4 ML VIAL IV PUSH ×2 (09:28→16:14)
--- NOTE | 2021-11-05 14:45 | PM.IMPN ---
Progress Note: A&P Assessment and Plan (1) Anasarca: Code(s): R60.1 - Generalized edema Status: Acute Assessment and Plan: Weight is up at least 20 lb over last 1 year and she has significant pitting edema to the breasts. Unfortunately she has not been taking her furosemide as an outpatient as she did not think it was helping much. At the time my evaluation she has had 1 L of urine out after receiving IV Lasix in the ER thus will continue with IV diuresis with close monitoring of volume status, I/O, and renal function. 11/04/2021 interval history: patient with anasarca patient is responding with IV Lasix states feeling much better and urinating more, swelling is also receding, patient has preserved LV function and normal diastolic function on last echo done on May of this year, patient albumin is low normal, will continue the present management will have a PT OT evaluate the patient, place the patient on low-salt diet. 11/05/2021 interval history: patient with anasarca patient is responding with IV Lasix states feeling much better and urinating more, swelling is also receding, patient has preserved LV function and normal diastolic function on last echo done on May of this year, patient albumin is low normal, will place of fluids restriction to help with swelling, 1600 cc per day, will continue the present management will have a PT OT evaluate the patient, place the patient on low-salt diet. (2) Cor pulmonale: Code(s): I27.81 - Cor pulmonale (chronic) Status: Acute Assessment and Plan: Plan is as detailed above. (3) Chronic respiratory failure with hypoxia, on home oxygen therapy: Code(s): J96.11 - Chronic respiratory failure with hypoxia; Z99.81 - Dependence on supplemental oxygen Status: Acute Assessment and Plan: Placed on Venti mask on arrival to the ED though it looks like she has been weaned to her baseline oxygen requirement. (4) Chronic kidney disease, stage 3: Code(s): N18.30 - Chronic kidney disease, stage 3 unspecified Status: Acute Assessment and Plan: Creatinine is stable on review of previous labs and will be monitored closely while diuresing. (5) Chronic obstructive pulmonary disease: Code(s): J44.9 - Chronic obstructive pulmonary disease, unspecified Status: Acute Assessment and Plan: No acute exacerbation. Continue maintenance inhalers and nebulizers as needed. (6) Peripheral vascular disease: Code(s): I73.9 - Peripheral vascular disease, unspecified Status: Acute Assessment and Plan: Patient reports chronic pain in her legs which is unchanged. She has declined further intervention though suggested by her vascular surgeon. No evidence of acute limb ischemia. (7) Hypertension: Code(s): I10 - Essential (primary) hypertension Status: Acute Assessment and Plan: Blood pressures were reviewed and they are well controlled. Continue antihypertensives and monitor daily. Subjective Date/time seen: 11/05/21 14:45 11/05/2021 interval history: patient with anasarca patient is responding with IV Lasix states feeling much better and urinating more, swelling is also receding, patient has preserved LV function and normal diastolic function on last echo done on May of this year, patient albumin is low normal, will place of fluids restriction to help with swelling, 1600 cc per day, will continue the present management will have a PT OT evaluate the patient, place the patient on low-salt diet. Exam Narrative: morbidly obese Patient is comfortable, NAD HEENT: eyes are clear and none icteric LUNGS: normal respiratory effort ABD: distended Lower extremities: no edema SKIN: nonjaundiced Neuro: grossly intact. Objective Data Vital Signs Vital Signs: Vital Signs - 24 hr 11/04/21 16:00 11/04/21 20:35 11/04/21 20:00 Temperature Pulse Rate 79 82 R
[2021-11-05] MEDS: HYDROcodone/acetaminophen (*CRX) 5-325 MG TABLET 1 TAB PO (15:58)
[2021-11-05] MEDS: ALBUTEROL SULFATE NEB 2.5 MG/3 ML INH INHALATION (16:13)
[2021-11-05] MEDS: LIDOCAINE 5% PATCH 3 PATCH TRANSDERM (17:05)
[2021-11-05] MEDS: ROSUVASTATIN 5 MG TABLET PO (20:32)
[2021-11-05] MEDS: MELATONIN 5 MG TABLET PO (21:01)
[2021-11-05] MEDS: DOCUSATE SODIUM 100 MG CAPSULE PO (21:01)
[2021-11-06] VITALS (10 sets, daily range): BP systolic 100–117; BP diastolic 44–51; PULSE 75–88; RESP 18; TEMP 36.5–36.9; O2SAT 93–98
[2021-11-06] MEDS: HYDROcodone/acetaminophen (*CRX) 5-325 MG TABLET 1 TAB PO ×2 (03:04→20:58)
[2021-11-06 05:59] LABS: Anion Gap 9 mmol/L (8-16); Blood Urea Nitrogen 18 mg/dL (7-17); Calcium 7.9 mg/dL (8.4-10.2); Carbon Dioxide 27 mmol/L (22-30); Chloride 101 mmol/L (98-107); Estimated CRCL calculation 48 ml/min; Estimated Glomerular Filt Rate 48; Glucose 94 mg/dL (65-110); Potassium 3.2 mmol/L (3.4-5.0); Sodium 137 mmol/L (137-145)
[2021-11-06] MEDS: FLUTICASONE/SALMETEROL 230-21 MCG INHALER 1 PUFF 2 PUFF INHALATION ×2 (07:57→19:54)
[2021-11-06] MEDS: FUROSEMIDE INJ 40 MG/4 ML VIAL IV PUSH ×2 (09:24→17:15)
[2021-11-06] MEDS: amLODIPine BESYLATE 5 MG TABLET 10 MG PO (09:24)
[2021-11-06] MEDS: CLOPIDOGREL BISULFATE 75 MG TABLET PO (09:24)
[2021-11-06] MEDS: ASPIRIN 81 MG ENTERIC TABLET PO (09:24)
[2021-11-06] MEDS: CELECOXIB 100 MG CAPSULE PO (09:25)
[2021-11-06] MEDS: LIDOCAINE 5% PATCH 3 PATCH TRANSDERM (09:26)
[2021-11-06] MEDS: POTASSIUM CHLORIDE 20 MEQ TABLET 40 MEQ PO (12:10)
[2021-11-06] MEDS: SILVERGEL (ELTA) 45 ML 1 APPLIC TOPICAL (12:11)
--- NOTE | 2021-11-06 12:56 | PM.IMPN ---
Progress Note: A&P Assessment and Plan (1) Anasarca: Code(s): R60.1 - Generalized edema Status: Acute Assessment and Plan: Weight is up at least 20 lb over last 1 year and she has significant pitting edema to the breasts. Unfortunately she has not been taking her furosemide as an outpatient as she did not think it was helping much. At the time my evaluation she has had 1 L of urine out after receiving IV Lasix in the ER thus will continue with IV diuresis with close monitoring of volume status, I/O, and renal function. 11/04/2021 interval history: patient with anasarca patient is responding with IV Lasix states feeling much better and urinating more, swelling is also receding, patient has preserved LV function and normal diastolic function on last echo done on May this year, patient albumin is low normal, will continue the present management will have a PT OT evaluate the patient, place the patient on low-salt diet. 11/05/2021 interval history: patient with anasarca patient is responding with IV Lasix states feeling much better and urinating more, swelling is also receding, patient has preserved LV function and normal diastolic function on last echo done on May this year, patient albumin is low normal, will place of fluids restriction to help with swelling, 1600 cc per day, will continue the present management will have a PT OT evaluate the patient, place the patient on low-salt diet. 11/06/2021 interval history: patient with anasarca patient is responding with IV Lasix states feeling much better and urinating more, swelling is also receding, patient has preserved LV function and normal diastolic function on last echo done on May this year, patient albumin is low normal, will place of fluids restriction to help with swelling, 1600 cc per day, will continue the present management, on 11/05 stanislav was complaining of left hip pain, refused x-ray of the hip, lidoderms patches applied and today pain is better, will have a PT OT evaluate the patient, place the patient on low-salt diet. (2) Cor pulmonale: Code(s): I27.81 - Cor pulmonale (chronic) Status: Acute Assessment and Plan: Plan is as detailed above. (3) Chronic respiratory failure with hypoxia, on home oxygen therapy: Code(s): J96.11 - Chronic respiratory failure with hypoxia; Z99.81 - Dependence on supplemental oxygen Status: Acute Assessment and Plan: Placed on Venti mask on arrival to the ED though it looks like she has been weaned to her baseline oxygen requirement. (4) Chronic kidney disease, stage 3: Code(s): N18.30 - Chronic kidney disease, stage 3 unspecified Status: Acute Assessment and Plan: Creatinine is stable on review of previous labs and will be monitored closely while diuresing. (5) Chronic obstructive pulmonary disease: Code(s): J44.9 - Chronic obstructive pulmonary disease, unspecified Status: Acute Assessment and Plan: No acute exacerbation. Continue maintenance inhalers and nebulizers as needed. (6) Peripheral vascular disease: Code(s): I73.9 - Peripheral vascular disease, unspecified Status: Acute Assessment and Plan: Patient reports chronic pain in her legs which is unchanged. She has declined further intervention though suggested by her vascular surgeon. No evidence of acute limb ischemia. (7) Hypertension: Code(s): I10 - Essential (primary) hypertension Status: Acute Assessment and Plan: Blood pressures were reviewed and they are well controlled. Continue antihypertensives and monitor daily. Subjective Date/time seen: 11/06/21 12:56 11/06/2021 interval history: patient with anasarca patient is responding with IV Lasix states feeling much better and urinating more, swelling is also receding, patient has preserved LV function and normal diastolic function on last echo done on May
[2021-11-07] VITALS: PULSE 83
[2021-11-07] MEDS: MELATONIN 5 MG TABLET PO (03:59)
[2021-11-07] MEDS: HYDROcodone/acetaminophen (*CRX) 5-325 MG TABLET 1 TAB PO (03:59)
[2021-11-07 04:00] VITALS: PULSE 92
[2021-11-07 04:19] VITALS: BP 111/55; PULSE 78; RESP 16; TEMP 36.4; O2SAT 99
[2021-11-07 06:12] LABS: Anion Gap 6 mmol/L (8-16); Blood Urea Nitrogen 15 mg/dL (7-17); Carbon Dioxide 33 mmol/L (22-30); Chloride 99 mmol/L (98-107); Estimated CRCL calculation 53 ml/min; Estimated Glomerular Filt Rate 53; Glucose 88 mg/dL (65-110); Potassium 3.5 mmol/L (3.4-5.0); Sodium 138 mmol/L (137-145)
[2021-11-07 08:00] VITALS: PULSE 90; O2SAT 96
[2021-11-07] MEDS: amLODIPine BESYLATE 5 MG TABLET 10 MG PO (09:00)
[2021-11-07] MEDS: FUROSEMIDE INJ 40 MG/4 ML VIAL IV PUSH (09:01)
[2021-11-07] MEDS: CELECOXIB 100 MG CAPSULE PO (09:01)
[2021-11-07] MEDS: CLOPIDOGREL BISULFATE 75 MG TABLET PO (09:01)
[2021-11-07] MEDS: ASPIRIN 81 MG ENTERIC TABLET PO (09:01)
[2021-11-07] MEDS: LIDOCAINE 5% PATCH 3 PATCH TRANSDERM (09:18)
[2021-11-07 09:24] VITALS: PULSE 79; RESP 12
[2021-11-07] MEDS: FLUTICASONE/SALMETEROL 230-21 MCG INHALER 1 PUFF 2 PUFF INHALATION (09:24)
--- NOTE | 2021-11-07 10:51 | PM.DS ---
DS: Admitting Diagnosis Discharge Date 11/07/2021 Admitting Diagnosis short of breath swelling DS: Discharge Diagnosis Discharge Diagnosis (1) Anasarca: Code(s): R60.1 - Generalized edema Status: Acute Assessment and Plan: Weight is up at least 20 lb over last 1 year and she has significant pitting edema to the breasts. Unfortunately she has not been taking her furosemide as an outpatient as she did not think it was helping much. At the time my evaluation she has had 1 L of urine out after receiving IV Lasix in the ER thus will continue with IV diuresis with close monitoring of volume status, I/O, and renal function. 11/04/2021 interval history: patient with anasarca patient is responding with IV Lasix states feeling much better and urinating more, swelling is also receding, patient has preserved LV function and normal diastolic function on last echo done on May this , patient albumin is low normal, will continue the present management will have a PT OT evaluate the patient, place the patient on low-salt diet. 11/05/2021 interval history: patient with anasarca patient is responding with IV Lasix states feeling much better and urinating more, swelling is also receding, patient has preserved LV function and normal diastolic function on last echo done on May this , patient albumin is low normal, will place of fluids restriction to help with swelling, 1600 cc per day, will continue the present management will have a PT OT evaluate the patient, place the patient on low-salt diet. 11/06/2021 interval history: patient with anasarca patient is responding with IV Lasix states feeling much better and urinating more, swelling is also receding, patient has preserved LV function and normal diastolic function on last echo done on May this , patient albumin is low normal, will place of fluids restriction to help with swelling, 1600 cc per day, will continue the present management, on 11/05 stanislav was complaining of left hip pain, refused x-ray of the hip, lidoderms patches applied and today pain is better, will have a PT OT evaluate the patient, place the patient on low-salt diet. (2) Cor pulmonale: Code(s): I27.81 - Cor pulmonale (chronic) Status: Acute Assessment and Plan: Plan is as detailed above. (3) Chronic respiratory failure with hypoxia, on home oxygen therapy: Code(s): J96.11 - Chronic respiratory failure with hypoxia; Z99.81 - Dependence on supplemental oxygen Status: Acute Assessment and Plan: Placed on Venti mask on arrival to the ED though it looks like she has been weaned to her baseline oxygen requirement. (4) Chronic kidney disease, stage 3: Code(s): N18.30 - Chronic kidney disease, stage 3 unspecified Status: Acute Assessment and Plan: Creatinine is stable on review of previous labs and will be monitored closely while diuresing. (5) Chronic obstructive pulmonary disease: Code(s): J44.9 - Chronic obstructive pulmonary disease, unspecified Status: Acute Assessment and Plan: No acute exacerbation. Continue maintenance inhalers and nebulizers as needed. (6) Peripheral vascular disease: Code(s): I73.9 - Peripheral vascular disease, unspecified Status: Acute Assessment and Plan: Patient reports chronic pain in her legs which is unchanged. She has declined further intervention though suggested by her vascular surgeon. No evidence of acute limb ischemia. (7) Hypertension: Code(s): I10 - Essential (primary) hypertension Status: Acute Assessment and Plan: Blood pressures were reviewed and they are well controlled. Continue antihypertensives and monitor daily. DS: Summary Hospital Course Reason for hospitalization: Chief Complaint: Shortness of breath and swelling. Narrative: This is a pleasant 81-year-old female with chronic hypoxic respi
[2021-11-07 12:00] VITALS: PULSE 94
--- NOTE | 2021-11-07 15:17 | PC.NURSE ---
Clarification Order: Discharge Medication Lidocaine 5% patch 3 patches applied to hip q [address] Noe.
== END 2021-11-07 16:30 | disposition home health service (06) | DRG 948 ==
LOC: ANHED 13:59 → ANH3MED 16:21
PROVIDERS: Admitting Provider Student in an Organized Health Care Education/Training Program; Emergency Provider Emergency Medicine; PCP Family Medicine; Visit Provider Family Medicine
DX: R60.1 Generalized edema (principal); J96.11 Chronic respiratory failure with hypoxia; Z68.43 Body mass index [BMI] 50.0-59.9, adult; Z91.14 Patient's other noncompliance with medication regimen; I27.81 Cor pulmonale (chronic); E66.01 Morbid (severe) obesity due to excess calories; I12.9 Hypertensive chronic kidney disease with stage 1 through stage 4 chronic kidney disease, or unspecified chronic kidney disease; N18.30 Chronic kidney disease, stage 3 unspecified; I50.9 Heart failure, unspecified; J44.9 Chronic obstructive pulmonary disease, unspecified; I73.9 Peripheral vascular disease, unspecified; Z99.81 Dependence on supplemental oxygen; Z20.822 Contact with and (suspected) exposure to COVID-19; D69.6 Thrombocytopenia, unspecified; Z87.891 Personal history of nicotine dependence; Z79.82 Long term (current) use of aspirin
CPT/HCPCS: 36415; 51702; 71045; 71275; 80048; 80053; 83605; 83880; 84484; 85025; 85055; 85610; 85730; 87040; 93005; 93923; 93970; 94640; 96374; 96376; 97161; 97165; 99214; 99291; A9270; C9803; G0378; G0463; J0690; J1940; Q9967; U0003; U0005

== ENCOUNTER 2021-11-27 08:03 | Outpatient (CLI) | payer MEDICARE, SELFPAY ==
--- NOTE | 2021-12-04 19:13 | WPDHOMESLEEP ---
Sleep Study - Home Unattended Date of Study: 11/27/21 Ordering Provider: Wolf Krause MD Interpreting Provider: Payal Davila DO Home Sleep Study Type: Apnea Link Air Neck Circumference (inches): 18.5 Reason for Sleep Study Concerns for SEAN due to pulmonary HTN and right-sided heart failure Sleep History The patient is an 81-year-old female with pulmonary hypertension, COPD, chronic thromboembolic disease, oxygen dependence, peripheral vascular disease, hypertension, hyperlipidemia and history of tobacco use disorder that had a sleep study ordered by her tool and die repairer for evaluation of sleep apnea. The patient did not fill out the sleep intake forms. [facility] Past Medical History Medical History Chronic kidney disease, stage 3 Creatinine ranges between 0.99 and 1.20. Chronic obstructive pulmonary disease Chronic respiratory failure with hypoxia, on home oxygen therapy Cor pulmonale Echocardiogram in May 2021 showed normal left ventricular systolic function with an estimated EF of 65 to 70%, severely enlarged right atria and ventricle and severe pulmonary hypertension with an estimated PA SP of 65 mmHg. Depression Glaucoma Hyperlipidemia Hypertension Lumbar disc disease Lymphedema Peripheral vascular disease Pulmonary hypertension Surgical History Surgical History History of bilateral cataract extraction History of procedure for peripheral vascular disease Bilateral lower extremity stents. Family History Family History Mother Diabetes mellitus Kidney failure Father Acute myocardial infarction Social History Social History Social History: Surrogate decision maker: Lion Porter, son. Code status: Full code. Smoking packs per day: 1 Smoking cigarettes per day: 20.0 Years smoked: 35 Smoking pack-years: 35.00 Smoking status: Former smoker Second hand tobacco smoke exposure: No Alcohol intake: never Substance use: never Substance use type: does not use Additional living arrangements comments: The patient lives with her in [place]. Spiritual care concerns: No Medications Home Medications Medication Instructions Recorded Confirmed Type aspirin 81 mg tablet,delayed 81 mg PO DAILY 05/17/19 11/03/21 History release (Miguel Low Dose Aspirin) albuterol sulfate 2.5 mg/3 mL 2.5 mg (3 mL) inhalation Q4-6H PRN 07/14/20 11/03/21 Rx (0.083 %) solution for nebulization shortness of breath or wheezing #540 mL rosuvastatin 5 mg tablet 5 mg PO .every other day #45 tabs 02/22/21 11/03/21 Rx clopidogrel 75 mg tablet (Plavix) 75 mg PO DAILY #90 tabs 06/13/21 11/03/21 Rx budesonide 160 mcg-glycopyr 9 2 inh inhalation QAM AND QPM #10.7 06/25/21 11/03/21 Rx mcg-formot 4.8 mcg/actuation HFA grams inhaler (Breztri Aerosphere) albuterol sulfate 90 mcg/actuation 1 inh inhalation Q4H PRN shortness 08/16/21 11/03/21 Rx aerosol inhaler (ProAir HFA) of breath or wheezing #1 device hydrocodone 5 mg-acetaminophen 325 1 tablet PO Q6H PRN pain #30 tabs 11/01/21 11/03/21 Rx mg tablet amlodipine 10 mg tablet 10 mg PO DAILY 11/03/21 11/03/21 History celecoxib 100 mg capsule 100 mg PO DAILY PRN Muscle Pain 11/03/21 11/03/21 History docusate sodium 100 mg capsule 100 mg PO Q12H PRN Constipation 11/07/21 Rx #30 caps silver 200 mcg/gram topical gel 1 applic topical DAILY #45 grams 11/07/21 Rx (Silver-Sept) lidocaine 5 % topical patch 3 patch transdermal DAILY #30 ea 11/08/21 Rx (Lidoderm) silver 200 mcg/gram topical gel 1 applic topical DAILY #45 grams 11/14/21 Rx (Silver-Sept) escitalopram oxalate 20 mg tablet 20 mg PO DAILY #30 tabs 11/16/21 Rx eszopiclone 2 mg tablet 2 mg PO QHS #1 tablet 11/29/21 Rx furo
== END 2021-11-29 09:23 | disposition home or self-care (01) ==
LOC: ANHCSM 08:05
PROVIDERS: PCP Family Medicine; Visit Provider Internal Medicine Pulmonary Disease
DX: G47.10 Hypersomnia, unspecified (principal)
CPT/HCPCS: 99199

== ENCOUNTER 2021-11-29 07:30 | Outpatient (RCR) | payer MEDICARE, SELFPAY ==
--- NOTE | 2021-11-02 10:03 | PCWOUND ---
WOCN NOTE Patient was seen 11/02/21 at the [facility] for evaluation of left lower leg wounds. Upon assessment, patient has 4+ edema to legs and feet that is moving up to abdomen and left breast. Patient with a large amount of edema to the abdomen and breasts. Patient wears oxygen on a daily basis and does have shortness of breath, but today seems to be struggling more that normal. Patient states she stopped taking her Lasix approximately 2 weeks ago due to side effects. Patient saw her PCP on Saturday10/27/21 and patient states she was this swollen when she saw her, patient also states that PCP aware she stopped Lasix, but has not been prescribed anything else for edema. I recommended patient be evaluated in an Emergency Room as soon as possible. Patient states he has dementia and she needed to arrange care for him before coming in. Per patient and family, they will be taking patient to ER tomorrow 11/03/21 for evaluation.
[2021-11-02 10:31] VITALS: BMI 48.2
== END 2022-01-22 08:41 | disposition home or self-care (01) ==
LOC: ANHWOC 07:30
PROVIDERS: PCP Family Medicine; Visit Provider Family Medicine
DX: L98.499 Non-pressure chronic ulcer of skin of other sites with unspecified severity (principal); I87.2 Venous insufficiency (chronic) (peripheral)
CPT/HCPCS: 99212; 99213; 99214; G0463

== ENCOUNTER 2021-12-10 13:07 | Inpatient (IN) | payer MEDICARE, SELFPAY ==
--- NOTE | ~2021-12-10 | XR_ITS ---
EXAMINATION: XR chest 1V portable DATE: 12/10/2021 13:26 INDICATION: Dyspnea TECHNIQUE: frontal view of the chest was obtained. COMPARISON: Chest radiograph dated 11/03/[address] dated 11/02/2021 FINDINGS: Lung volumes are increased since the prior study. Persistent diffuse hazy airspace opacities and pulm onary vascular congestion with increased prominence of the pulmonary interstitial pattern and would f avor mild pulmonary edema over pneumonia. No pleural effusion or pneumothorax. Cardiomegaly. Atherosc lerotic aorta. IMPRESSION: 1. Persistent diffuse bilateral lung disease with increased interstitial pattern and would favor ho estive heart failure related pulmonary edema over pneumonia. 2. Cardiomegaly. Reviewed, dictated and finalized at location A. IMPRESSION: 1. Persistent diffuse bilateral lung disease with increased interstitial patter n and would favor congestive heart failure related pulmonary edema over pneumon ia. 2. Cardiomegaly.
--- NOTE | ~2021-12-10 | US_ITS ---
EXAMINATION: US venous doppler [facility] DATE: 12/14/2021 10:26 INDICATION: Lower limb edema. TECHNIQUE: Grayscale ultrasound images without and with compression and Doppler ultrasound images of the bilateral lower extremity veins were obtained. COMPARISON: Ultrasound 12/10/2021 FINDINGS: The visualized portions of right common femoral vein, profunda (deep) femoral vein, femoral vein, pop liteal vein, peroneal veins, posterior tibial veins, and greater saphenous vein outflow are patent. The visualized portions of left common femoral vein, profunda femoral vein, femoral vein, popliteal v ein, peroneal veins, posterior tibial veins, and greater saphenous vein outflow are patent. IMPRESSION: 1. No deep venous thrombosis. Reviewed, dictated and finalized at location A.
--- NOTE | ~2021-12-10 | CT_ITS ---
EXAMINATION: CTA chest PE protocol DATE: 12/14/2021 09:59 INDICATION: Shortness of breath. TECHNIQUE: Computed tomography angiography (CTA) of the chest was performed with 100 mL Omnipaque-350 intravenous contrast timed to evaluate the pulmonary arteries. Coronal maximum intensity projection 3D-reconstructions were created by the technologist. Automated exposure control and iterative reconst ruction technique were employed. The dose-length product was 953.70 mGy-cm. COMPARISON: Chest CT 11/02/2021, 05/26/21 FINDINGS: There is scattered groundglass opacities in all lobes. There are peripheral airspace opacit ies in the left upper lobe and lower lobes. There is diffuse septal thickening bilaterally. There are trace pleural effusions. Bronchomalacia is noted. Cardiomegaly is noted. There are coronary artery c alcifications. No pericardial effusion. The central pulmonary arteries are enlarged, consistent with pulmonary arterial hypertension. There is no pulmonary embolus. There is a small sliding hiatal herni a. There is perihepatic and perisplenic ascites. Body wall edema is noted. There is chronic height lo ss of multiple thoracic vertebral bodies. There is mild thoracic spondylosis. IMPRESSION: 1. No pulmonary embolus. Sensitivity is mildly decreased by motion artifact. 2. Diffuse lung disease, likely moderate pulmonary edema. Pneumonia cannot be excluded. 3. Bronchomalacia. 4. Cardiomegaly. 5. Ascites. Reviewed, dictated and finalized at location A. IMPRESSION: 1. No pulmonary embolus. Sensitivity is mildly decreased by motion artifact. 2. Diffuse lung disease, likely moderate pulmonary edema. Pneumonia cannot be e xcluded. 3. Bronchomalacia. 4. Cardiomegaly. 5. Ascites.
--- NOTE | ~2021-12-10 | US_ITS ---
EXAMINATION: US venous doppler [facility] DATE: 12/10/2021 15:59 INDICATION: leg pain, redness, and swelling. TECHNIQUE: Grayscale images without and with compression and Doppler images of the bilateral lower ex tremity veins were obtained. COMPARISON: 11/04/2021 FINDINGS: Distal right femoral vein, right posterior tibial vein, and right peroneal vein were not visualized. The right common femoral vein, profunda (deep) femoral vein, proximal femoral vein, popliteal vein, g astrocnemius vein, and greater saphenous vein are patent. The left common femoral vein, profunda femoral vein, femoral vein, popliteal vein, peroneal vein, pos terior tibial veins, gastrocnemius vein, and greater saphenous vein are patent. IMPRESSION: 1. Limited evaluation of the right lower extremity, distal right femoral vein, posterior tibial vein , and peroneal veins were not visualized. Remaining visualized right lower extremity veins were paten t. 2. Patent left lower extremity veins. No evidence of deep venous thrombosis. Reviewed, dictated and finalized at location K. IMPRESSION: 1. Limited evaluation of the right lower extremity, distal right femoral vein, posterior tibial vein, and peroneal veins were not visualized. Remaining visua lized right lower extremity veins were patent. 2. Patent left lower extremity veins. No evidence of deep venous thrombosis.
[2021-12-10 13:12] VITALS: BP 136/51; PULSE 94; RESP 18; TEMP 36.6; O2SAT 94
--- NOTE | 2021-12-10 13:15 | ECG_ITS ---
Measurements Intervals [place] Rate: 77 P: 82 CO: 123 QRS: 75 QRSD: 101 T: 171 QT: 391 QTc: 445 Interpretive Statements SINUS RHYTHM WITH SINUS ARRHYTHMIA LOW QRS VOLTAGE IN PRECORDIAL LEADS INCOMPLETE RIGHT BUNDLE BRANCH BLOCK BORDERLINE ST-T WAVE ABNORMALITY- DIFFUSE LEADS BASELINE ARTIFACT- I, II, III, AVR, AVL, AVF, V1-V3 BORDERLINE ECG Electronically Signed On 12-10-2021 14:43:48 CDT by Sean Antunez D.O.
--- NOTE | 2021-12-10 13:42 | ED.GENADULT ---
HPI - General Adult General Chief complaint: Extremity Problem,Nontraumatic Stated complaint: extremity swelling Time Seen by Provider: 12/10/21 13:09 Source: RN notes reviewed History of Present Illness HPI narrative: Patient presents the emergency department from home for swelling of the legs. Patient states she has a history of CHF and said progressive swelling of her legs over the past several days states has been associated with worsening wounds on her legs and redness of her right leg states that she is chronically on 6 L nasal cannula states she has not been taking her water pills over the past several days she denies any fevers or chills chest pain or increased shortness of breath states she does see wound care for her chronic wounds on her legs Related Data Home Medications Medication Instructions Recorded Confirmed aspirin 81 mg tablet,delayed 81 mg PO DAILY 05/17/19 11/03/21 release (Miguel Low Dose Aspirin) amlodipine 10 mg tablet 10 mg PO DAILY 11/03/21 11/03/21 celecoxib 100 mg capsule 100 mg PO DAILY PRN Muscle Pain 11/03/21 11/03/21 Allergies Allergy/AdvReac Type Severity Reaction Status Date / Time No Known Allergies Allergy Verified 11/15/21 14:22 Review of Systems Review of Systems: Gen.: Denies fevers or chills ENT: Denies congestion Respiratory: Denies shortness of breath or cough CV: Denies chest pain or palpitations reports swelling of the legs GI: Denies abdominal pain nausea, or emesis Musculoskeletal: Denies back pain or muscle pain Neuro: Denies numbness, tingling, weakness or focal weakness Skin: Reports wounds on the legs Except as documented, all other systems reviewed and negative [facility], [facility] Past Medical History Medical History Chronic kidney disease, stage 3 Creatinine ranges between 0.99 and 1.20. Chronic obstructive pulmonary disease Chronic respiratory failure with hypoxia, on home oxygen therapy Cor pulmonale Echocardiogram in May 2021 showed normal left ventricular systolic function with an estimated EF of 65 to 70%, severely enlarged right atria and ventricle and severe pulmonary hypertension with an estimated PA SP of 65 mmHg. Depression Glaucoma Hyperlipidemia Hypertension Lumbar disc disease Lymphedema Peripheral vascular disease Pulmonary hypertension Surgical History Surgical History History of bilateral cataract extraction History of procedure for peripheral vascular disease Bilateral lower extremity stents. Family History Family History Mother Diabetes mellitus Kidney failure Father Acute myocardial infarction Social History Social History Social History: Surrogate decision maker: Lion Porter, son. Code status: Full code. Smoking packs per day: 1 Smoking cigarettes per day: 20.0 Years smoked: 35 Smoking pack-years: 35.00 Smoking status: Former smoker Second hand tobacco smoke exposure: No Alcohol intake: never Substance use: never Substance use type: does not use Additional living arrangements comments: The patient lives with her in [place]. Spiritual care concerns: No Exam Narrative: APPEARANCE: No acute distress, nontoxic, resting in bed EYES: EOMI HEENT: Normocephalic, atraumatic, OMM RESPIRATORY: No respiratory distress Clear to auscultation bilaterally with no rhonchi wheezing or rales. CARDIOVASCULAR: Regular rate and rhythm without murmurs rubs or gallops. ABDOMINAL: Soft, nontender, nondistended, no rebound or guarding MUSCULOSKELETAl: Moves all extremities. No clubbing, cyanosis 3+ edema the bilateral lower extremities NEURO: Awake and alert. Following commands, speech normal, no focal deficits SKIN:: Warm, dry. No rashes lesions right leg with open superfici
[2021-12-10 14:03] LABS: Basophils Absolute Auto 0.1 K/mm3 (0.0-0.1); Basophils Percent Auto 0.5 % (0.2-1.2); Eosinophils Absolute Auto 0.2 K/mm3 (0-0.3); Eosinophils Percent Auto 1.8 % (0-4.4); Hematocrit 36.8 % (37.0-47.0); Hemoglobin 11.3 g/dL (12.0-15.0); Immature Granulocyte Absolute 0.07 K/mm3 (0.00-0.031); Immature Granulocyte Percent A 0.6 % (0-0.5); Lymphocytes Absolute Auto 0.71 K/mm3 (0.9-3.2); Lymphocytes Percent Auto 5.8 % (18.3-44.2); Mean Corpuscular HGB Conc 30.7 g/dl (32-36); Mean Corpuscular Volume 91.1 fl (80-100); Mean Platelet Volume 11.7 fl (7.4-10.4); Neutrophils Absolute Auto 10.2 K/mm3 (1.3-6.7); Neutrophils Percent Auto 83.3 % (45.5-73.1); Platelet Count Result 154 k/mm3 (150-375); Red Blood Count 4.04 M/mm3 (4.2-5.4); White Blood Count 12.3 K/mm3 (4.5-10.0)
[2021-12-10 14:14] LABS: INR 1.3; Prothrombin Time 15.7 Seconds (11.1-14.7)
[2021-12-10 14:15] LABS: Partial Thromboplastin Time 32.5 SECONDS (22.3-36.8)
[2021-12-10 14:19] LABS: Alanine Aminotransferase 15 U/L (6-35); Albumin Level 4.1 g/dL (3.5-5.1); Alkaline Phosphatase 94 U/L (38-126); Anion Gap 15 mmol/L (8-16); Aspartate Amino Transferase 35 U/L (14-36); Bilirubin,Total 2.5 mg/dL (0.2-1.3); Blood Urea Nitrogen 31 mg/dL (7-17); Calcium 9.2 mg/dL (8.4-10.2); Carbon Dioxide 27 mmol/L (22-30); Chloride 93 mmol/L (98-107); Estimated Glomerular Filt Rate 31; Glucose 123 mg/dL (65-110); Potassium 3.2 mmol/L (3.4-5.0); Sodium 135 mmol/L (137-145)
[2021-12-10 14:22] LABS: Ovalocytes 1+ (NORMAL); Platelet Estimate Adequate (Adequate)
[2021-12-10 14:31] LABS: NT Pro B Type Natriuretic Pept 4520 pg/mL (5-100); Troponin I 0.026 ng/mL (0.000-0.034)
--- NOTE | 2021-12-10 15:00 | PM.IMHP ---
H&P: HPI History of Present Illness Date/Time: 12/10/21 15:00 Chief Complaint: Worsening lower extremity edema. Narrative: This is a pleasant 81-year-old female with chronic hypoxic respiratory failure on home oxygen, severe pulmonary hypertension, chronic obstructive pulmonary disease, peripheral vascular disease, hypertension, chronic kidney disease, and other comorbidities who presented to the ED via EMS from home for evaluation of worsening lower extremity edema. She is known to myself and the hospitalist service from a recent admission between November 03 and November 07, 2021 at which time she was admitted with volume overload and marked anasarca. She was diuresed and discharged home with improvement in her symptoms. Unfortunately she has not been taking her furosemide as directed and is only intermittently compliant as she has difficulties getting up to the toilet and she wants to avoid having to use the restroom as much as possible. The last several days she has noticed an increase in her leg swelling and she has had even more difficulties getting around due to the swelling and weight. She denies lightheadedness, dizziness, fever, chills, sweats, chest pain, pleuritic pain, shortness of breath (she does have chronic dyspnea on exertion), abdominal pain, nausea, vomiting, diarrhea, dysuria. Review of Systems Review of Systems: Twelve systems were reviewed. No recent cold or flu symptoms. No sick contacts. She attempted a sleep study recently but was unable to complete that as she was not able to sleep well. There are suspicions that she may very well have underlying obstructive sleep apnea. She has been seeing Dr. Krause and he is doing a workup in regards to her pulmonary hypertension. She thinks she may be a bit constipated as she passed a small hard stool the other day and prior to that she did not have a bowel movement for about 5 days. Except as documented, all other systems were reviewed and are negative. [facility] Past Medical History Medical History (Updated 12/10/21 @ 20:15 by Cecily Sandoval PA-C) Chronic kidney disease, stage 3 Creatinine ranges between 0.99 and 1.20. Chronic obstructive pulmonary disease Chronic respiratory failure with hypoxia, on home oxygen therapy Cor pulmonale Echocardiogram in May 2021 showed normal left ventricular systolic function with an estimated EF of 65 to 70%, severely enlarged right atria and ventricle and severe pulmonary hypertension with an estimated PA SP of 65 mmHg. Right ventricular function was normal. Depression Glaucoma Hyperlipidemia Hypertension Lumbar disc disease Lymphedema Peripheral vascular disease Pulmonary hypertension Surgical History Surgical History History of bilateral cataract extraction History of procedure for peripheral vascular disease Bilateral lower extremity stents. Family History Family History Mother Diabetes mellitus Kidney failure Father Acute myocardial infarction Social History Social History Social History: Surrogate decision maker: Lion Porter, son. Code status: Full code. Smoking packs per day: 1 Smoking cigarettes per day: 20.0 Years smoked: 35 Smoking pack-years: 35.00 Smoking status: Former smoker Tobacco type: cigarettes Second hand tobacco smoke exposure: No Alcohol intake: never Substance use: never Substance use type: does not use Additional living arrangements comments: The patient lives with her in [place]. Spiritual care concerns: No Meds Home Medications and Allergies Home Medications Medication Instructions Recorded Confirmed Type aspirin 81 mg tablet,delayed 81 mg PO DAILY 05/17/19 12/10/21 History release (Miguel Low Dose Aspirin) albuterol sulfate 2.5 mg/3 mL 2.5 mg (3 mL) inh
[2021-12-10] MEDS: POTASSIUM CHLORIDE 20 MEQ TABLET PO (16:03)
[2021-12-10 16:45] VITALS: BP 119/63; PULSE 77; RESP 18; TEMP 36.8; O2SAT 93
--- NOTE | 2021-12-10 17:09 | ADMGEN ---
This patient, Elda Dalal, was admitted to Medical Room 247-. Patient/family oriented to hospital policies and general routines including ID bracelet, bed and alarms, visiting hours, pain management, procedures, bathroom and other care routines, personal items, smoking policy, room service/diet, and visiting hours. Information on how to activate the Rapid Response Team has been discussed. Patient/Family are encouraged to report perceived risks to care and to ask questions if they do not understand what they are told or what they should do.
[2021-12-10 17:30] VITALS: PULSE 76
[2021-12-10 17:30] LABS: Troponin I 0.024 ng/mL (0.000-0.034)
[2021-12-10 17:47] VITALS: O2SAT 96
[2021-12-10 20:00] VITALS: PULSE 77
[2021-12-10 20:20] VITALS: BMI 48.2
[2021-12-10] MEDS: FUROSEMIDE INJ 40 MG/4 ML VIAL IV PUSH (20:55)
[2021-12-10 21:24] VITALS: BP 122/64; PULSE 79; RESP 20; TEMP 36.6; O2SAT 92
[2021-12-10] MEDS: LIDOCAINE 5% PATCH 3 PATCH TRANSDERM (22:37)
[2021-12-10] MEDS: HYDROcodone/acetaminophen (*CRX) 5-325 MG TABLET 1 TAB PO (23:36)
[2021-12-10] MEDS: MELATONIN 5 MG TABLET PO (23:39)
[2021-12-11] VITALS (10 sets, daily range): BP systolic 106–125; BP diastolic 41–59; PULSE 71–87; RESP 12–16; TEMP 36.3–36.9; O2SAT 91–94
[2021-12-11] MEDS: ceFAZolin 500 MG in DEXTROSE 5% IN WATER 50 ML 100 MG IVPB ×2 (03:04→16:38)
[2021-12-11 05:45] LABS: Basophils Percent Auto 0.4 % (0.2-1.2); Eosinophils Absolute Auto 0.5 K/mm3 (0-0.3); Eosinophils Percent Auto 5.1 % (0-4.4); Hematocrit 35.7 % (37.0-47.0); Hemoglobin 11.2 g/dL (12.0-15.0); Immature Granulocyte Absolute 0.05 K/mm3 (0.00-0.031); Immature Granulocyte Percent A 0.5 % (0-0.5); Lymphocytes Absolute Auto 0.98 K/mm3 (0.9-3.2); Lymphocytes Percent Auto 10.7 % (18.3-44.2); Mean Corpuscular HGB Conc 31.4 g/dl (32-36); Mean Corpuscular Hemoglobin 28.4 pg (26-34); Mean Corpuscular Volume 90.4 fl (80-100); Mean Platelet Volume 10.8 fl (7.4-10.4); Monocytes Absolute Auto 0.8 K/mm3 (0.1-0.6); Monocytes Percent Auto 8.4 % (2.6-8.5); Neutrophils Absolute Auto 6.9 K/mm3 (1.3-6.7); Neutrophils Percent Auto 74.9 % (45.5-73.1); Platelet Count Result 136 k/mm3 (150-375); Red Blood Count 3.95 M/mm3 (4.2-5.4); White Blood Count 9.2 K/mm3 (4.5-10.0)
[2021-12-11 06:08] LABS: Alanine Aminotransferase 13 U/L (6-35); Albumin Level 3.5 g/dL (3.5-5.1); Alkaline Phosphatase 81 U/L (38-126); Anion Gap 12 mmol/L (8-16); Aspartate Amino Transferase 32 U/L (14-36); Bilirubin,Total 1.5 mg/dL (0.2-1.3); Blood Urea Nitrogen 33 mg/dL (7-17); Calcium 8.6 mg/dL (8.4-10.2); Carbon Dioxide 27 mmol/L (22-30); Chloride 92 mmol/L (98-107); Estimated CRCL calculation 36 ml/min; Estimated Glomerular Filt Rate 36; Glucose 98 mg/dL (65-110); Magnesium 1.7 mg/dL (1.6-2.3); Sodium 131 mmol/L (137-145)
[2021-12-11] MEDS: FLUTICASONE/UMECLIDIN/VILANTER 100-62.5-25 MCG ELLIPTA 1 PUFF INHALATION (07:59)
[2021-12-11] MEDS: POTASSIUM CHLORIDE 20 MEQ PACKET (FOR LIQUID) PO ×2 (08:46→20:10)
[2021-12-11] MEDS: ROSUVASTATIN 5 MG TABLET PO (08:46)
[2021-12-11] MEDS: FUROSEMIDE INJ 40 MG/4 ML VIAL IV PUSH ×2 (08:46→16:38)
[2021-12-11] MEDS: ASPIRIN 81 MG ENTERIC TABLET PO (08:47)
[2021-12-11] MEDS: CLOPIDOGREL BISULFATE 75 MG TABLET PO (08:47)
[2021-12-11] MEDS: ESCITALOPRAM OXALATE 10 MG TABLET 20 MG PO (08:47)
[2021-12-11] MEDS: amLODIPine BESYLATE 5 MG TABLET 10 MG PO (08:47)
--- NOTE | 2021-12-11 11:02 | PM.IMPN ---
Progress Note: A&P Assessment and Plan (1) Right-sided heart failure: Code(s): I50.810 - Right heart failure, unspecified Status: Acute Assessment and Plan: Echocardiogram in May 2021 showed severe pulmonary hypertension and she has been seen by Dr. Krause. Echocardiogram at the beginning of this year showed enlarged right ventricle with preserved systolic function. Monitor vital signs, I&Os, BUN/creatinine, daily weights, neuro status and patient is a fall risk Monitor serum electrolytes, Keep serum Potassium>4 and serum Magnesium>2 and CBC Obtain an Echocardiogram Lasix 40 mg IV q12H, patient appears volume overloaded due to noncompliance with furosemide at home. Consult cardiology for further management, appreciate assistance and recommendations (2) Acute on chronic kidney failure: Code(s): N17.9 - Acute kidney failure, unspecified; N18.9 - Chronic kidney disease, unspecified Status: Acute Assessment and Plan: Possible cardiorenal syndrome. She has been intermittently compliant with her furosemide and her edema seems to have once again worsened. Hopefully her renal function will improve with diuresis and not worsen. Monitor volume status closely and I/O as best as possible. Avoid nephrotoxic agents. If renal function continues to worsen, may be prudent to consult with Nephrology (3) Hypokalemia: Code(s): E87.6 - Hypokalemia Status: Acute Assessment and Plan: Potassium will be replaced and monitored. . (4) Hypertension: Code(s): I10 - Essential (primary) hypertension Status: Acute Assessment and Plan: Blood pressures were reviewed and they are stable. Antihypertensives will be reviewed and resumed as appropriate. (5) Wound of lower extremity: Code(s): S81.809A - Unspecified open wound, unspecified lower leg, initial encounter Status: Acute Assessment and Plan: Consult wound care See orders Patient received a dose of Ancef in the emergency department. Lower extremity wound does not appear to be infected, will de-escalate abx pending culture. Subjective Date/time seen: 12/11/21 11:02 patient is alert and oriented this morning. She denies any additional shortness of breath. Patient wears oxygen at baseline, 6 L per nasal cannula. Patient is currently on 6 L per nasal cannula SpO2 94%. She denies additional shortness of breath. She reports she feels significantly improved for receiving furosemide in the emergency department. Patient's vital signs are otherwise stable. Patient does have wounds to bilateral lower extremity that wound care was able to evaluate today -see orders. Patient requested home health. Spoke with case management. no acute events reported by RN during the night. Review of Systems Review of Systems: All systems reviewed & are unremarkable except as noted in HPI and below Exam Narrative: General: Chronically ill-appearing elderly female lying up in bed in no acute distress. Weight: 127.27 kg.--Morbidly obese HEENT: PERRL, EOMI. Conjunctivae anicteric. Moist mucous membranes. Oropharynx is crowded and poorly visualized. Neck: Supple. Exam is limited due to neck circumference. No obvious jugular venous distension. Respiratory: Respirations are nonlabored at rest . Lung sounds are diminished at the bases with fine crackles. Cardiovascular: Regular rate and rhythm with S1-S2. Gastrointestinal: Abdomen is obese and nontender with positive bowel sounds. She has some mild edema of the flanks and pannus but this seems much less swollen when compared to previous exam several weeks ago. Skin: Warm and dry. Chronic stasis dermatitis of the lower legs. There are a couple of shallow ulcers on the left anterior sandra with mild serous weeping with yellow crusting. The legs are not warm or tender to palpation. Right great toe nail is blue and does not karen thus this is presumably due to
--- NOTE | 2021-12-11 11:07 | ECHO_ITS ---
Patient Info Name: Elda Dalal Age: 81 years : 1940 Gender: Female Ht: 64 in Wt: 276 lbs BSA: 2.45 m2 HR: 78 bpm BP: 166 / 87 mmHg Heart Rhythm: Sinus Rhythm Exam Date: 12/11/2021 2:03 PM Exam Location: [facility] Pulmonary Patient Status: Inpatient Admit Date: 12/10/2021 Staff Ordering Physician: Zuly Langston APRN [employer] Advisor: Chepe Eckert RDCS, RT Attending Provider: Gideon Munoz MD Referring Physician: Kian DURAN; Exam Type: CA echo doppler color flow Study Info Indications R06.02 - Shortness of breath Complete two-dimensional, color flow and Doppler transthoracic echocardiogram is performed. Summary 1. Complete two-dimensional, color flow and Doppler transthoracic echocardiogram is performed. 2. Technically difficult study with limited views. Regional wall motion assessment limited due to poor endomyocardial border definition. Patient declined definity contrast enhancement. 3. Left ventricular chamber dimension is normal. 4. Left ventricular systolic function is normal, estimated at 60-65%. 5. There is mildly increased left ventricular wall thickness. 6. The left ventricular diastolic function is grade II diastolic dysfunction. 7. Right ventricular chamber dimension is not well visualized, although appears to be a least moderately enlarged when visualized.. 8. Right atrial chamber dimension is severely enlarged. 9. There is mild mitral valve regurgitation. 10. There is severe tricuspid valve regurgitation. 11. Moderate pulmonary hypertension, estimated pulmonary arterial systolic pressure is 52 mmHg. Left Ventricle Left ventricular chamber dimension is normal. Left ventricular systolic function is normal, estimated at 60-65%. There is mildly increased left ventricular wall thickness. The left ventricular diastolic function is grade II diastolic dysfunction. Technically difficult study with limited views. Regional wall motion assessment limited due to poor endomyocardial border definition. Patient declined definity contrast enhancement. Right Ventricle Right ventricular chamber dimension is not well visualized, although appears to be a least moderately enlarged when visualized.. Right ventricular systolic function is normal. Left Atria Left atrial chamber dimension is mildly enlarged. Right Atria Right atrial chamber dimension is severely enlarged. Aortic Valve The aortic valve is not well visualized. There is no aortic valve stenosis. There is no aortic valve regurgitation. Pulmonic Valve The pulmonic valve is not well visualized. There is trace pulmonic regurgitation. Mitral Valve The mitral valve has normal leaflets. There is mild mitral valve regurgitation. The mitral valve annulus is mildly calcified. Tricuspid Valve The tricuspid valve leaflets are normal. There is severe tricuspid valve regurgitation. Moderate pulmonary hypertension, estimated pulmonary arterial systolic pressure is 52 mmHg. Pericardium/Pleural The pericardium appears not well visualized. There is no pericardial effusion. Inferior Vena Cava Dilated inferior vena cava with no collapse upon inspiration consistent with significantly elevated right atrial pressure, 15 mmHg. Aorta The aortic root size at the sinus of Valsalva is normal. There is mild aortic atherosclerosis. Left Ventricular Outflow Tract Name Value Normal -
--- NOTE | 2021-12-11 11:18 | PM.CNCAR ---
Assessment and Plan Assessment and plan (1) CHF (congestive heart failure): Qualifiers: Heart failure type: right-sided Heart failure chronicity: acute on chronic Qualified Code(s): I50.813 - Acute on chronic right heart failure Code(s): I50.9 - Heart failure, unspecified Status: Acute Assessment and Plan: History essentially of cor pulmonale with severe pulmonary hypertension related chronic hypoxic respiratory failure with RV enlargement admitted with worsening lower extremity edema shortness breath secondary to noncompliance with diuretic therapy. She has preserved LV systolic function. Continue intravenous diuresis transition to oral regimen. Compliance with medication, low sodium intake, management of chronic hypoxic respiratory failure. Echo ordered. Will review when available although I do not expect significant changes to present. Could change to Bumex or torsemide if she does not feel Lasix working well for her upon transition to oral regimen. (2) Noncompliance w/medication treatment due to intermit use of medication: Code(s): Z91.14 - Patient's other noncompliance with medication regimen Status: Acute Assessment and Plan: As above, counseled patient on importance of compliance with medication or recommendations to follow-up. (3) Paroxysmal atrial fibrillation: Code(s): I48.0 - Paroxysmal atrial fibrillation Status: Acute Assessment and Plan: If present new diagnosis. Suspected transient episodes on telemetry likely AFib noted. Continue to monitor for now. She remains on aspirin and clopidogrel. CHADS2 Vasc score 5. Systemic anticoagulation would be advised then would discontinue clopidogrel and continue aspirin 81 mg daily to reduce bleeding risk. Will continue to monitor to ascertain greater certainty of suspected atrial fibrillation. May need to consider changing amlodipine to diltiazem for control as appropriate. She is generally in taking sinus rhythm thus far. (4) Chronic respiratory failure with hypoxia, on home oxygen therapy: Code(s): J96.11 - Chronic respiratory failure with hypoxia; Z99.81 - Dependence on supplemental oxygen Status: Acute Assessment and Plan: Continue O2 supplementation. Needs sleep study probable SEAN. Unable to do home sleep study. Management pulmonology as an outpatient. (5) Acute on chronic kidney failure: Qualifiers: Acute renal failure type: unspecified Chronic kidney disease stage: stage 3 (moderate) Chronic kidney disease stage 3 subtype: unspecified whether 3a or 3b Qualified Code(s): N17.9 - Acute kidney failure, unspecified; N18.30 - Chronic kidney disease, stage 3 unspecified Code(s): N17.9 - Acute kidney failure, unspecified; N18.9 - Chronic kidney disease, unspecified Status: Acute Assessment and Plan: Monitor renal function closely. Continue to follow BMP. Replete electrolytes, accurate input and output, daily weight. (6) Cor pulmonale: Code(s): I27.81 - Cor pulmonale (chronic) Status: Acute Assessment and Plan: As above, severe pulmonary hypertension by echocardiogram May 2021. Repeat Echo pending. History of Present Illness History of Present Illness Consult date/time: Date of service: 12/11/21 11:18 Requesting physician: Cecily Sandoval PA-C Consult reason: congestive heart failure Reason For Visit: CHF, cellulitis in right leg Narrative: Patient is an 79-year-old female with a history of chronic hypoxic respiratory failure on oxygen, cor pulmonale severe pulmonary hypertension, COPD, hypertension, chronic kidney disease stage 3, morbid obesity with several recent admissions for decompensated right heart failure most recently discharged November 07, 2021 for volume overload. During that hospitalization she responded well to intravenous diuresis has been sent home on oral Lasix. Per electronic record patient admitted to stopping
[2021-12-11 13:30] LABS: Free T4 Free Thyroxine Reflex 0.78 ng/dL (0.78-2.19)
[2021-12-11 14:14] LABS: Total Triiodothyronine (T3) 1.28 NG/ML (0.97-1.69)
[2021-12-11] MEDS: POTASSIUM CHLORIDE 20 MEQ TABLET 40 MEQ PO (14:24)
[2021-12-11] MEDS: HYDROcodone/acetaminophen (*CRX) 5-325 MG TABLET 1 TAB PO ×2 (14:25→20:25)
[2021-12-11] MEDS: MELATONIN 5 MG TABLET PO (20:25)
[2021-12-12] VITALS (11 sets, daily range): BP systolic 111–115; BP diastolic 41–62; PULSE 75–82; RESP 16–22; TEMP 36.2–36.3; O2SAT 91–93
[2021-12-12] MEDS: ceFAZolin 500 MG in DEXTROSE 5% IN WATER 50 ML 100 MG IVPB ×2 (04:35→17:52)
[2021-12-12] MEDS: HYDROcodone/acetaminophen (*CRX) 5-325 MG TABLET 1 TAB PO ×2 (06:06→19:52)
[2021-12-12] MEDS: POTASSIUM CHLORIDE 20 MEQ PACKET (FOR LIQUID) PO ×2 (08:34→17:52)
[2021-12-12] MEDS: ESCITALOPRAM OXALATE 10 MG TABLET 20 MG PO (08:35)
[2021-12-12] MEDS: amLODIPine BESYLATE 5 MG TABLET 10 MG PO (08:35)
[2021-12-12] MEDS: ASPIRIN 81 MG ENTERIC TABLET PO (08:35)
[2021-12-12] MEDS: LIDOCAINE 5% PATCH 3 PATCH TRANSDERM (08:36)
[2021-12-12] MEDS: FUROSEMIDE INJ 40 MG/4 ML VIAL IV PUSH ×2 (08:36→17:52)
--- NOTE | 2021-12-12 09:15 | PM.PNCARD ---
Progress Note: A&P Assessment and Plan (1) CHF (congestive heart failure): Qualifiers: Heart failure chronicity: acute on chronic Heart failure type: right-sided Qualified Code(s): I50.813 - Acute on chronic right heart failure <JENNI Robb - Last Filed: 12/12/21 16:01> Code(s): I50.9 - Heart failure, unspecified <JENNI Robb - Last Filed: 12/12/21 16:01> Status: Acute <JENNI Robb - Last Filed: 12/12/21 16:01> Assessment and Plan: History essentially of cor pulmonale with severe pulmonary hypertension related chronic hypoxic respiratory failure with RV enlargement admitted with worsening lower extremity edema shortness breath secondary to noncompliance with diuretic therapy. She has preserved LV systolic function. Continue intravenous diuresis today. Possibly transition to oral diuretic tomorrow Compliance with medication, low sodium intake, management of chronic hypoxic respiratory failure. Echo shows normal LV systolic function with EF 60-65%. Grade II diastolic dysfunction. Moderate pHTN, PASP 52 mmHg. <JENNI Robb - Last Filed: 12/12/21 16:01> (2) Noncompliance w/medication treatment due to intermit use of medication: Code(s): Z91.14 - Patient's other noncompliance with medication regimen <JENNI Robb - Last Filed: 12/12/21 16:01> Status: Acute <JENNI Robb - Last Filed: 12/12/21 16:01> Assessment and Plan: As above, counseled patient on importance of compliance with medication or recommendations to follow-up. <JENNI Robb - Last Filed: 12/12/21 16:01> (3) Paroxysmal atrial fibrillation: Code(s): I48.0 - Paroxysmal atrial fibrillation <JENNI Robb - Last Filed: 12/12/21 16:01> Status: Acute <JENNI Robb - Last Filed: 12/12/21 16:01> Assessment and Plan: If present new diagnosis. Suspected transient episodes on telemetry likely AFib noted. Continue to monitor for now. Did have another brief episode of Afib early this morning. She remains on aspirin and clopidogrel. CHADS2 Vasc score 5. Systemic anticoagulation would be advised then would discontinue clopidogrel and continue aspirin 81 mg daily to reduce bleeding risk. Will continue to monitor to ascertain greater certainty of suspected atrial fibrillation. May need to consider changing amlodipine to diltiazem for control as appropriate. She is generally in sinus rhythm. <JENNI Robb - Last Filed: 12/12/21 16:01> (4) Chronic respiratory failure with hypoxia, on home oxygen therapy: Code(s): J96.11 - Chronic respiratory failure with hypoxia; Z99.81 - Dependence on supplemental oxygen <JENNI Robb - Last Filed: 12/12/21 16:01> Status: Acute <JENNI Robb - Last Filed: 12/12/21 16:01> Assessment and Plan: Continue O2 supplementation. Needs sleep study probable SEAN. Unable to do home sleep study. Management pulmonology as an outpatient. <JENNI Robb - Last Filed: 12/12/21 16:01> (5) Acute on chronic kidney failure: Qualifiers: Acute renal failure type: unspecified Chronic kidney disease stage: stage 3 (moderate) Chronic kidney disease stage 3 subtype: unspecified whether 3a or 3b Qualified Code(s): N17.9 - Acute kidney failure, unspecified; N18.30 - Chronic kidney disease, stage 3 unspecified <JENNI Robb - Last Filed: 12/12/21 16:01> Code(s): N17.9 - Acute kidney failure, unspecified; N18.9 - Chronic kidney disease, unspecified <JENNI Robb - Last Filed: 12/12/21 16:01> Status: Acute <JENNI Robb - Last Filed: 12/12/21 16:01> Assessment and Plan: Monitor renal function closely. Continue to follow BMP. Replete electrolytes, accurate input and output, daily weight. <JENNI Robb - Last Filed: 12/12/21 16:01> (6) Cor pulmona
[2021-12-12] MEDS: FLUTICASONE/UMECLIDIN/VILANTER 100-62.5-25 MCG ELLIPTA 1 PUFF INHALATION (09:25)
[2021-12-12] MEDS: CLOPIDOGREL BISULFATE 75 MG TABLET PO (10:42)
--- NOTE | 2021-12-12 12:22 | PM.IMPN ---
Progress Note: A&P Assessment and Plan (1) Right-sided heart failure: Code(s): I50.810 - Right heart failure, unspecified Status: Acute Assessment and Plan: - echo was repeated today and demonstrates left ventricular systolic function is normal with an ejection fraction of 60-65%. There is grade 2 diastolic dysfunction and moderate pulmonary hypertension. - Monitor Vital signs and labs daily - daily weight - accurate I&O - continue with current IV Lasix 40 mg b.i.d., appreciate further management per Cardiology of changing medication Regimen. (2) Acute on chronic kidney failure: Qualifiers: Acute renal failure type: unspecified Chronic kidney disease stage: stage 3 (moderate) Chronic kidney disease stage 3 subtype: unspecified whether 3a or 3b Qualified Code(s): N17.9 - Acute kidney failure, unspecified; N18.30 - Chronic kidney disease, stage 3 unspecified Code(s): N17.9 - Acute kidney failure, unspecified; N18.9 - Chronic kidney disease, unspecified Status: Acute Assessment and Plan: - Baseline creatinine is 1.0-1.2. Today's creatinine is 1.4 which is stable as compared to yesterday's 1.4. Patient has history of stage 3 chronic kidney disease. - Patient has not been fully compliant with medication therapy. She was counseled for medication compliance - avoid renal offending agents. - Accurate intake and output - daily weight - consider nephrology consultation if any worsening. (3) Hypokalemia: Code(s): E87.6 - Hypokalemia Status: Acute Assessment and Plan: - Current potassium is 3.0. Patient received a 20 mg Briana dose this morning, a 1 time dose of 40 mEq in addition is ordered at this time. . (4) Hypertension: Code(s): I10 - Essential (primary) hypertension Status: Acute Assessment and Plan: - Currently stable. Continue home medications (5) Wound of lower extremity: Code(s): S81.809A - Unspecified open wound, unspecified lower leg, initial encounter Status: Acute Assessment and Plan: - wound consultation was performed today and they recommend antifungal cream be applied to the legs. - There are no acute signs an acute infection requiring antibiotic therapy. No immediate concerns of cellulitis. - Will continue to monitor wound status and appearance of lower extremities. Time Spent With Patient Time with patient: 15 - 25 minutes Subjective Date/time seen: 12/12/21 8091 This 81 year old female patient is evaluated at the bedside today in interval assessment. She is being managed by Cardiology for her Right sided heart failure in the setting of Acute on chronic kidney failure, and the possibility of new onset Atrial fibrillation, although there has not been any A-fib that is noted to be prolonged. Cardiology has consulted and they are not sure at this point if there is definite Atrial fibrillation or not, and are not sure if they want to discontinue her Plavix and instead start her on a systemic anticoagulant. I spoke with Cardiology and the plan is to continue with Plavix currently and consider a holter monitor to get a longer evaluation of her rhythm. With regards to her Right sided heart failure, she is currently on Lasix. ECHO was repeated today and demonstrates a preserved EF, normal LVSF, and moderate pulmonary HTN. The recommendation is to place the patient on Bumex or Torsemide when transitioning back to po meds from the current IV Lasix. We will continue to follow the recommendations of Cardiology. Today the pt. is sitting up in the recliner has has no acute complaints. She endorses that her breathing is starting to get better and her legs are looking improved to her as well with regards to edema. She denies any CP, and no palpitations. Review of Systems Review of Systems: All systems reviewed & are unremarkable except as noted in HPI and below Exam Const: General: com
[2021-12-12] MEDS: POTASSIUM CHLORIDE 20 MEQ PACKET (FOR LIQUID) 40 MEQ PO (13:15)
[2021-12-12] MEDS: MELATONIN 5 MG TABLET PO (21:09)
[2021-12-13] VITALS (18 sets, daily range): BP systolic 123–134; BP diastolic 41–74; PULSE 72–89; RESP 18–22; TEMP 36.3–36.7; O2SAT 90–96
[2021-12-13] MEDS: HYDROcodone/acetaminophen (*CRX) 5-325 MG TABLET 1 TAB PO ×2 (01:37→18:25)
[2021-12-13] MEDS: BACLOFEN 10 MG TABLET PO ×2 (03:24→13:29)
[2021-12-13] MEDS: ceFAZolin 500 MG in DEXTROSE 5% IN WATER 50 ML 100 MG IVPB (03:37)
[2021-12-13 05:36] LABS: Basophils Percent Auto 0.6 % (0.2-1.2); Eosinophils Absolute Auto 0.5 K/mm3 (0-0.3); Eosinophils Percent Auto 6.6 % (0-4.4); Hematocrit 32.8 % (37.0-47.0); Hemoglobin 10.1 g/dL (12.0-15.0); Immature Granulocyte Absolute 0.06 K/mm3 (0.00-0.031); Immature Granulocyte Percent A 0.8 % (0-0.5); Lymphocytes Absolute Auto 0.82 K/mm3 (0.9-3.2); Lymphocytes Percent Auto 11.5 % (18.3-44.2); Mean Corpuscular HGB Conc 30.8 g/dl (32-36); Mean Corpuscular Hemoglobin 28.4 pg (26-34); Mean Corpuscular Volume 92.1 fl (80-100); Mean Platelet Volume 11.5 fl (7.4-10.4); Monocytes Absolute Auto 0.7 K/mm3 (0.1-0.6); Monocytes Percent Auto 9.5 % (2.6-8.5); Neutrophils Absolute Auto 5.1 K/mm3 (1.3-6.7); Platelet Count Result 155 k/mm3 (150-375); Red Blood Count 3.56 M/mm3 (4.2-5.4); Red Cell Distribution Width 17.1 % (11.5-14.5); White Blood Count 7.1 K/mm3 (4.5-10.0)
[2021-12-13 05:58] LABS: Alanine Aminotransferase 12 U/L (6-35); Albumin Level 3.3 g/dL (3.5-5.1); Alkaline Phosphatase 84 U/L (38-126); Anion Gap 8 mmol/L (8-16); Aspartate Amino Transferase 27 U/L (14-36); Blood Urea Nitrogen 30 mg/dL (7-17); Calcium 8.3 mg/dL (8.4-10.2); Carbon Dioxide 31 mmol/L (22-30); Chloride 95 mmol/L (98-107); Estimated CRCL calculation 39 ml/min; Estimated Glomerular Filt Rate 39; Glucose 104 mg/dL (65-110); Magnesium 1.7 mg/dL (1.6-2.3); Potassium 3.8 mmol/L (3.4-5.0); Sodium 134 mmol/L (137-145)
[2021-12-13] MEDS: FLUTICASONE/UMECLIDIN/VILANTER 100-62.5-25 MCG ELLIPTA 1 PUFF INHALATION (08:01)
[2021-12-13] MEDS: CLOPIDOGREL BISULFATE 75 MG TABLET PO (08:57)
[2021-12-13] MEDS: ESCITALOPRAM OXALATE 10 MG TABLET 20 MG PO (08:57)
[2021-12-13] MEDS: POTASSIUM CHLORIDE 20 MEQ PACKET (FOR LIQUID) PO ×2 (08:57→16:25)
[2021-12-13] MEDS: ROSUVASTATIN 5 MG TABLET PO (08:57)
[2021-12-13] MEDS: ASPIRIN 81 MG ENTERIC TABLET PO (08:57)
[2021-12-13] MEDS: amLODIPine BESYLATE 5 MG TABLET 10 MG PO (08:58)
[2021-12-13] MEDS: ENOXAPARIN 40 MG/0.4 ML SYRINGE SUB-Q (08:59)
[2021-12-13] MEDS: FUROSEMIDE INJ 40 MG/4 ML VIAL IV PUSH (08:59)
[2021-12-13] MEDS: LIDOCAINE 5% PATCH 3 PATCH TRANSDERM (09:00)
--- NOTE | 2021-12-13 11:22 | PM.PNCARD ---
Progress Note: A&P Assessment and Plan (1) CHF (congestive heart failure): Qualifiers: Heart failure chronicity: acute on chronic Heart failure type: right-sided Qualified Code(s): I50.813 - Acute on chronic right heart failure Code(s): I50.9 - Heart failure, unspecified Status: Acute Assessment and Plan: History essentially of cor pulmonale with severe pulmonary hypertension related chronic hypoxic respiratory failure with RV enlargement admitted with worsening lower extremity edema shortness breath secondary to noncompliance with diuretic therapy. She has preserved LV systolic function. Continue diuresis. I will change Lasix to Bumex 1.5 mg b.i.d. and observe response as diuresis is suboptimal. Need to balance renal function electrolytes closely as well. Compliance with medication, low sodium intake, management of chronic hypoxic respiratory failure. Echo shows normal LV systolic function with EF 60-65%. Grade II diastolic dysfunction. Moderate pHTN, PASP 52 mmHg. (2) Noncompliance w/medication treatment due to intermit use of medication: Code(s): Z91.14 - Patient's other noncompliance with medication regimen Status: Acute Assessment and Plan: As above, counseled patient on importance of compliance with medication or recommendations to follow-up. (3) Paroxysmal atrial fibrillation: Code(s): I48.0 - Paroxysmal atrial fibrillation Status: Acute Assessment and Plan: New diagnosis none past 24 hours on telemetry noted. Transient episodes on telemetry likely AFib noted. Continue to monitor for now. Did have another brief episode of Afib early this morning. She remains on aspirin and clopidogrel. CHADS2 Vasc score 5. Systemic anticoagulation advised, discontinue clopidogrel and continue aspirin 81 mg daily to reduce bleeding risk. She has been on aspirin and clopidogrel for many years for peripheral arterial disease but does not follow with vascular surgery now. discussed atrial fibrillation embolic stroke risk versus bleeding risk at length. Explained recommendation for anticoagulation for stroke risk reduction as well as bleeding risk in association with concomitant aspirin and/or clopidogrel. Patient verbalized understanding and agreed. Will continue to monitor to ascertain greater certainty of suspected atrial fibrillation. she is maintaining sinus rhythm at this time. Add low-dose metoprolol 12.5 mg twice daily. Telemetry. Initiate Eliquis 5 mg b.i.d. starting tomorrow morning. Discontinue enoxaparin DVT dosing. Follow H&H in platelet count. Platelets stable 155 this a.m... (4) Chronic respiratory failure with hypoxia, on home oxygen therapy: Code(s): J96.11 - Chronic respiratory failure with hypoxia; Z99.81 - Dependence on supplemental oxygen Status: Acute Assessment and Plan: Continue O2 supplementation. Needs sleep study probable SEAN. Unable to do home sleep study. Management pulmonology as an outpatient. (5) Acute on chronic kidney failure: Qualifiers: Acute renal failure type: unspecified Chronic kidney disease stage: stage 3 (moderate) Chronic kidney disease stage 3 subtype: unspecified whether 3a or 3b Qualified Code(s): N17.9 - Acute kidney failure, unspecified; N18.30 - Chronic kidney disease, stage 3 unspecified Code(s): N17.9 - Acute kidney failure, unspecified; N18.9 - Chronic kidney disease, unspecified Status: Acute Assessment and Plan: Monitor renal function closely. Continue to follow BMP. Replete electrolytes, accurate input and output, daily weight. (6) Cor pulmonale: Code(s): I27.81 - Cor pulmonale (chronic) Status: Acute Assessment and Plan: Moderate by echo from this admission, estimated PASP 52 mmHg. Subjective Date/time seen: date of service:12/13/21 11:22 Follow-up for CHF, new onset paroxysmal atrial fibrillation she states her breathing has
--- NOTE | 2021-12-13 11:26 | PM.IMPN ---
Progress Note: A&P Assessment and Plan (1) Right-sided heart failure: Code(s): I50.810 - Right heart failure, unspecified Status: Acute Assessment and Plan: - echo was repeated today and demonstrates left ventricular systolic function is normal with an ejection fraction of 60-65%. There is grade 2 diastolic dysfunction and moderate pulmonary hypertension. - Monitor Vital signs and labs daily - daily weight - accurate I&O - continue with current IV Lasix 40 mg b.i.d., appreciate further management per Cardiology of changing medication Regimen. Can we switch to Torsemide or Bumex or would it be better to increase the Lasix dose to 60 mg BID? - Pt. continues to be Hypervolemic still with pitting edema from the level of the feet up to the lower abdomen. (2) Acute on chronic kidney failure: Qualifiers: Acute renal failure type: unspecified Chronic kidney disease stage: stage 3 (moderate) Chronic kidney disease stage 3 subtype: unspecified whether 3a or 3b Qualified Code(s): N17.9 - Acute kidney failure, unspecified; N18.30 - Chronic kidney disease, stage 3 unspecified Code(s): N17.9 - Acute kidney failure, unspecified; N18.9 - Chronic kidney disease, unspecified Status: Acute Assessment and Plan: - Baseline creatinine is 1.0-1.2. Today's creatinine is 1.3 which is stable as compared to yesterday's 1.4. Patient has history of stage 3 chronic kidney disease. She appears to be tolerating diuresis well. - Patient has not been fully compliant with medication therapy. She was counseled for medication compliance - avoid renal offending agents. - Accurate intake and output - daily weight - consider nephrology consultation if any worsening. (3) Hypokalemia: Code(s): E87.6 - Hypokalemia Status: Resolved Assessment and Plan: - Hypokalemia has resolved and her Potassium today is 3.8. (4) Hypertension: Code(s): I10 - Essential (primary) hypertension Status: Acute Assessment and Plan: - Currently stable. Continue home medications (5) Wound of lower extremity: Code(s): S81.809A - Unspecified open wound, unspecified lower leg, initial encounter Status: Acute Assessment and Plan: - wound consultation was performed today and they recommend antifungal cream be applied to the legs. - There are no acute signs an acute infection requiring antibiotic therapy. No immediate concerns of cellulitis. - Will continue to monitor wound status and appearance of lower extremities. Time Spent With Patient Time with patient: 15 - 25 minutes Subjective Date/time seen: 12/13/21 3330 This pt. was examined at the bedside today in interval assessment. She remains on IVP diuretics as she continues to appear fluid overloaded with pitting edema up her legs to her abdomen. She remains on her home supplemental oxygen requirement of 6L and does not endorse any increased dyspnea and no chest pain. She has been free of N/V/D and with regards to her fall last evening in her room, there are no complaints of pain and no injuries. She denies any Review of Systems Review of Systems: All systems reviewed & are unremarkable except as noted in HPI and below Exam Const: General: comfortable and no acute distress HENMT: General nose exam: Normal nares present and no epistaxis Eyes: Sclera: sclerae normal Pupils: Equal, round and reactive pupils present EOM: EOMs intact bilaterally Neck: Neck: supple and no JVD Carotids: no bruits Lymphatic: lymphadenopathy not noted Resp: Effort & Inspection: normal respiratory effort Auscultation: crackles bilateral at the base and in the mid lung rai Cardio: Rate: regular rate Rhythm: regular rhythm Heart sounds: no gallops, Murmur heart sound present systolic (grade 2) holo and no rubs GI: Inspection: non-distended GI Palp: Yes Soft to palpation and No Tenderness to palpation present
[2021-12-13] MEDS: BUMETANIDE INJ 2.5 MG/10 ML VIAL 1.5 MG IV PUSH (16:25)
[2021-12-13] MEDS: DOCUSATE SODIUM 100 MG CAPSULE PO (16:29)
[2021-12-13] MEDS: ALBUTEROL SULFATE NEB 2.5 MG/0.5 ML INH 5 MG (21:10)
[2021-12-13 21:13] LABS: Alveolar/Arterial O2 Gradient 220.4 mmHg; Base Excess ABG 0.7 mEq/l (+/-2.0); Fractional Inspired Oxygen 45 %; HCO3 ABG 24.8 mEq/l (22.0-26.0); Oxygen Content ABG 14.2 %vol (16.0-22.0); Oxygen Saturation ABG 90.6 % (95.0-100.0); PCO2 ABG 38.1 mmHg (35.0-45.0); PO2 ABG 57.1 mmHg (80.0-100.0); PO2 FiO2 Ratio Arterial Blood 1.27 %; Total Hemoglobin 11.5 g/dL (12.0-18.0); pH ABG 7.432 (7.350-7.450)
[2021-12-13 21:14] LABS: Device NASAL CANNULA; Oxyhemoglobin 87.8 % THb (90.0-100.0); Site Drawn RIGHT BRACHIAL
[2021-12-13] MEDS: MELATONIN 5 MG TABLET PO (21:15)
[2021-12-13] MEDS: KETOROLAC 15 MG/ML VIAL (*BKC) IV PUSH (21:18)
[2021-12-13 22:02] LABS: SARS-CoV-2 RNA PCR Negative
[2021-12-14] VITALS (10 sets, daily range): BP systolic 110–137; BP diastolic 47–67; PULSE 73–83; RESP 20–22; TEMP 36–36.6; O2SAT 91–97
[2021-12-14 06:38] LABS: Basophils Absolute Auto 0.1 K/mm3 (0.0-0.1); Basophils Percent Auto 0.9 % (0.2-1.2); Eosinophils Absolute Auto 0.4 K/mm3 (0-0.3); Eosinophils Percent Auto 4.9 % (0-4.4); Hematocrit 32.9 % (37.0-47.0); Hemoglobin 10.1 g/dL (12.0-15.0); Immature Granulocyte Absolute 0.06 K/mm3 (0.00-0.031); Immature Granulocyte Percent A 0.8 % (0-0.5); Lymphocytes Absolute Auto 1.02 K/mm3 (0.9-3.2); Lymphocytes Percent Auto 13.8 % (18.3-44.2); Mean Corpuscular HGB Conc 30.7 g/dl (32-36); Mean Corpuscular Hemoglobin 28.4 pg (26-34); Mean Corpuscular Volume 92.4 fl (80-100); Mean Platelet Volume 11.3 fl (7.4-10.4); Monocytes Absolute Auto 0.8 K/mm3 (0.1-0.6); Monocytes Percent Auto 11.2 % (2.6-8.5); Neutrophils Percent Auto 68.4 % (45.5-73.1); Platelet Count Result 166 k/mm3 (150-375); Red Blood Count 3.56 M/mm3 (4.2-5.4); Red Cell Distribution Width 17.2 % (11.5-14.5); White Blood Count 7.4 K/mm3 (4.5-10.0)
[2021-12-14 06:45] LABS: Alanine Aminotransferase 11 U/L (6-35); Albumin Level 3.4 g/dL (3.5-5.1); Alkaline Phosphatase 87 U/L (38-126); Anion Gap 8 mmol/L (8-16); Aspartate Amino Transferase 26 U/L (14-36); Blood Urea Nitrogen 28 mg/dL (7-17); Calcium 8.6 mg/dL (8.4-10.2); Carbon Dioxide 29 mmol/L (22-30); Chloride 95 mmol/L (98-107); Estimated CRCL calculation 42 ml/min; Estimated Glomerular Filt Rate 43; Glucose 111 mg/dL (65-110); Magnesium 1.6 mg/dL (1.6-2.3); Potassium 3.9 mmol/L (3.4-5.0); Sodium 132 mmol/L (137-145)
--- NOTE | 2021-12-14 08:35 | PM.PNCARD ---
Progress Note: A&P Assessment and Plan (1) CHF (congestive heart failure): Qualifiers: Heart failure chronicity: acute on chronic Heart failure type: right-sided Qualified Code(s): I50.813 - Acute on chronic right heart failure Code(s): I50.9 - Heart failure, unspecified Status: Acute Assessment and Plan: History essentially of cor pulmonale with severe pulmonary hypertension related chronic hypoxic respiratory failure with RV enlargement admitted with worsening lower extremity edema shortness breath secondary to noncompliance with diuretic therapy. She has preserved LV systolic function. Echo shows normal LV systolic function with EF 60-65%. Grade II diastolic dysfunction. Moderate pHTN, PASP 52 mmHg. Continue diuresis with Bumex 1.5mg b.i.d. Continue to monitor renal function and electrolytes closely. Renal function improved today. Compliance with medication, low sodium intake, management of chronic hypoxic respiratory failure. Fluid restriction (2) Noncompliance w/medication treatment due to intermit use of medication: Code(s): Z91.14 - Patient's other noncompliance with medication regimen Status: Acute Assessment and Plan: As above, counseled patient on importance of compliance with medication or recommendations to follow-up. (3) Paroxysmal atrial fibrillation: Code(s): I48.0 - Paroxysmal atrial fibrillation Status: Acute Assessment and Plan: New diagnosis with transient episodes on telemetry likely AFib noted during this hospitalization. CHADS2 Vasc score 5. Systemic anticoagulation advised, discontinue clopidogrel and continue aspirin 81 mg daily to reduce bleeding risk. Initiate Eliquis 5 mg b.i.d. Discontinue enoxaparin DVT dosing. Follow H&H in platelet count. Add low-dose metoprolol 12.5 mg twice daily. Continue to monitor on telemetry. (4) Chronic respiratory failure with hypoxia, on home oxygen therapy: Code(s): J96.11 - Chronic respiratory failure with hypoxia; Z99.81 - Dependence on supplemental oxygen Status: Acute Assessment and Plan: Continue O2 supplementation. Needs sleep study probable SEAN. Unable to do home sleep study. Management pulmonology as an outpatient. (5) Acute on chronic kidney failure: Qualifiers: Acute renal failure type: unspecified Chronic kidney disease stage: stage 3 (moderate) Chronic kidney disease stage 3 subtype: unspecified whether 3a or 3b Qualified Code(s): N17.9 - Acute kidney failure, unspecified; N18.30 - Chronic kidney disease, stage 3 unspecified Code(s): N17.9 - Acute kidney failure, unspecified; N18.9 - Chronic kidney disease, unspecified Status: Acute Assessment and Plan: Monitor renal function closely. Continue to follow BMP. Replete electrolytes, accurate input and output, daily weight. (6) Cor pulmonale: Code(s): I27.81 - Cor pulmonale (chronic) Status: Acute Assessment and Plan: Moderate by echo from this admission, estimated PASP 52 mmHg. Additional Plan ATTENDING ADDENDUM: I agree with the above documentation outlined. Subjective Date/time seen: 12/14/21 08:35 Cardiology follow up for CHF Feeling fine this morning. Per RN report she desaturated last night while turning in bed. Patient states that she had a good night and did not experience any difficulty breathing. Sitting on the edge of the bed eating her breakfast and appears comfortable at this time. Review of Systems Review of Systems: All systems reviewed & are unremarkable except as noted in HPI and below Constitutional: Constitutional: Reports as per HPI and Reports no additional constitutional complaints Eyes: Eyes: Reports as per HPI and Reports no additional eye complaints ENT: Reports system reviewed and no additional complaints, except as documented and Reports as per HPI Cardiovascular: Cardiovascular: Reports as per HPI and Reports no [email or web address]
--- NOTE | 2021-12-14 08:59 | PCPTNOTE ---
Attempted to see patient for PT at this time, however patient was eating breakfast and per RN patient is going to a CT scan after breakfast. Patient unable to be seen for PT at this time.
[2021-12-14] MEDS: LIDOCAINE 5% PATCH 3 PATCH TRANSDERM (09:07)
[2021-12-14] MEDS: ESCITALOPRAM OXALATE 10 MG TABLET 20 MG PO (09:08)
[2021-12-14] MEDS: amLODIPine BESYLATE 5 MG TABLET 10 MG PO (09:08)
[2021-12-14] MEDS: POTASSIUM CHLORIDE 20 MEQ PACKET (FOR LIQUID) PO ×2 (09:08→17:17)
[2021-12-14] MEDS: ASPIRIN 81 MG ENTERIC TABLET PO (09:09)
[2021-12-14] MEDS: APIXABAN 5 MG TABLET PO ×2 (09:09→20:55)
[2021-12-14] MEDS: FLUTICASONE/UMECLIDIN/VILANTER 100-62.5-25 MCG ELLIPTA 1 PUFF INHALATION (09:36)
[2021-12-14 09:56] LABS: NT Pro B Type Natriuretic Pept 2830 pg/mL (5-100)
--- NOTE | 2021-12-14 10:30 | PM.IMPN ---
Progress Note: A&P Assessment and Plan (1) Right-sided heart failure: Code(s): I50.810 - Right heart failure, unspecified Status: Acute Assessment and Plan: - echo demonstrates left ventricular systolic function is normal with an ejection fraction of 60-65%. There is grade 2 diastolic dysfunction and moderate pulmonary hypertension. - Monitor Vital signs and labs daily - daily weight demonstrates interval increase in weight over course of past three days. - accurate I&O ordered. - Cardiology switched diuretic agent from Lasix yesterday to Bumex 1.5 mg. She has received one dose to date, but is now requiring 8L High flow supplemental oxygen to maintain sats. ABG performed 12/13/21 in the evening hours, demonstrates Hypoxic respiratory Failure. - Pt. continues to be Hypervolemic still with 3+ pitting edema from the level of the feet up to the lower abdomen. - 1200 ml fluid restriction initiated. - Appreciate the co-management of Cardiology and their continued efforts in management of her heart failure. (2) Acute on chronic kidney failure: Qualifiers: Acute renal failure type: unspecified Chronic kidney disease stage: stage 3 (moderate) Chronic kidney disease stage 3 subtype: unspecified whether 3a or 3b Qualified Code(s): N17.9 - Acute kidney failure, unspecified; N18.30 - Chronic kidney disease, stage 3 unspecified Code(s): N17.9 - Acute kidney failure, unspecified; N18.9 - Chronic kidney disease, unspecified Status: Acute Assessment and Plan: - Baseline creatinine is 1.0-1.2. She is at baseline creatinine of 1.2/28. Patient has history of stage 3 chronic kidney disease. She appears to be tolerating diuretics well. - Patient has not been fully compliant with medication therapy. She was counseled for medication compliance - avoid renal offending agents. - Accurate intake and output - daily weight - consider nephrology consultation if any worsening. (3) Hypokalemia: Code(s): E87.6 - Hypokalemia Status: Resolved Assessment and Plan: - Hypokalemia has resolved and her Potassium today is 3.8. (4) Hypertension: Code(s): I10 - Essential (primary) hypertension Status: Acute Assessment and Plan: - Currently stable. Continue home medications (5) Wound of lower extremity: Code(s): S81.809A - Unspecified open wound, unspecified lower leg, initial encounter Status: Acute Assessment and Plan: - wound consultation was performed today and they recommend antifungal cream be applied to the legs. - There are no acute signs an acute infection requiring antibiotic therapy. No immediate concerns of cellulitis. - Will continue to monitor wound status and appearance of lower extremities. - BLE continue to have 3+ pitting edema. BLE dopplers are ordered and are pending. (6) Chronic respiratory failure with hypoxia, on home oxygen therapy: Code(s): J96.11 - Chronic respiratory failure with hypoxia; Z99.81 - Dependence on supplemental oxygen Status: Acute Assessment and Plan: - Acute on chronic. - Worsening of fluid retention, working with Cardiology to effectively diurese. - CTA of chest ordered secondary to increased supplemental oxygen requirement and she is now on 8L high flow oxygen. CTA demonstrated no PE, but there is moderate pulmonary edema, cardiomegaly and bronchomalacia. Coincidentally, Ascites is noted also. - Continue supplemental oxygenation and monitor. - ABG performed last evening with preserved pH, normal PCO2, and hypoxemia w/PCO2 of 57.1. 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 Wound nurse consulted for shallow ulcerations noted on the left leg especially. Her right great toenail is discolored an
--- NOTE | 2021-12-14 11:49 | PCPTNOTE ---
Patient refused treatment this session due to patient wanting to rest at this time.
[2021-12-14] MEDS: BUMETANIDE INJ 2.5 MG/10 ML VIAL 1.5 MG IV PUSH ×2 (12:29→18:52)
[2021-12-14] MEDS: HYDROcodone/acetaminophen (*CRX) 5-325 MG TABLET 1 TAB PO (20:54)
[2021-12-14] MEDS: MELATONIN 5 MG TABLET PO (20:54)
[2021-12-15] VITALS (13 sets, daily range): BP systolic 108–126; BP diastolic 51–58; PULSE 70–84; RESP 16–20; TEMP 36.3–36.6; O2SAT 90–95
[2021-12-15] MEDS: HYDROcodone/acetaminophen (*CRX) 5-325 MG TABLET 1 TAB PO ×3 (03:01→21:01)
[2021-12-15 05:53] LABS: Basophils Percent Auto 0.6 % (0.2-1.2); Eosinophils Absolute Auto 0.5 K/mm3 (0-0.3); Eosinophils Percent Auto 7.3 % (0-4.4); Hematocrit 32.6 % (37.0-47.0); Hemoglobin 9.7 g/dL (12.0-15.0); Immature Granulocyte Absolute 0.06 K/mm3 (0.00-0.031); Immature Granulocyte Percent A 0.8 % (0-0.5); Lymphocytes Percent Auto 12.6 % (18.3-44.2); Mean Corpuscular HGB Conc 29.8 g/dl (32-36); Mean Corpuscular Hemoglobin 27.7 pg (26-34); Mean Corpuscular Volume 93.1 fl (80-100); Mean Platelet Volume 10.8 fl (7.4-10.4); Monocytes Absolute Auto 0.9 K/mm3 (0.1-0.6); Neutrophils Absolute Auto 4.8 K/mm3 (1.3-6.7); Neutrophils Percent Auto 66.7 % (45.5-73.1); Platelet Count Result 178 k/mm3 (150-375); Red Cell Distribution Width 17.5 % (11.5-14.5); White Blood Count 7.2 K/mm3 (4.5-10.0)
[2021-12-15 06:09] LABS: Alanine Aminotransferase 12 U/L (6-35); Albumin Level 3.4 g/dL (3.5-5.1); Alkaline Phosphatase 87 U/L (38-126); Anion Gap 7 mmol/L (8-16); Aspartate Amino Transferase 27 U/L (14-36); Blood Urea Nitrogen 22 mg/dL (7-17); Calcium 8.4 mg/dL (8.4-10.2); Carbon Dioxide 33 mmol/L (22-30); Chloride 96 mmol/L (98-107); Estimated CRCL calculation 46 ml/min; Estimated Glomerular Filt Rate 48; Glucose 88 mg/dL (65-110); Magnesium 1.5 mg/dL (1.6-2.3); Potassium 3.8 mmol/L (3.4-5.0); Sodium 136 mmol/L (137-145)
[2021-12-15] MEDS: MAGNESIUM SULF 2 GM/WATER 50ML 2 GM/50 ML BAG IVPB (06:59)
[2021-12-15] MEDS: BACLOFEN 10 MG TABLET PO (08:04)
[2021-12-15] MEDS: ESCITALOPRAM OXALATE 10 MG TABLET 20 MG PO (08:06)
[2021-12-15] MEDS: ROSUVASTATIN 5 MG TABLET PO (08:06)
[2021-12-15] MEDS: amLODIPine BESYLATE 5 MG TABLET 10 MG PO (08:06)
[2021-12-15] MEDS: LIDOCAINE 5% PATCH 3 PATCH TRANSDERM (08:06)
[2021-12-15] MEDS: APIXABAN 5 MG TABLET PO ×2 (08:07→21:01)
[2021-12-15] MEDS: ASPIRIN 81 MG ENTERIC TABLET PO (08:07)
[2021-12-15] MEDS: POTASSIUM CHLORIDE 20 MEQ PACKET (FOR LIQUID) PO ×2 (08:07→17:03)
[2021-12-15] MEDS: FLUTICASONE/UMECLIDIN/VILANTER 100-62.5-25 MCG ELLIPTA 1 PUFF INHALATION (08:38)
[2021-12-15] MEDS: BUMETANIDE INJ 2.5 MG/10 ML VIAL 1.5 MG IV PUSH ×2 (09:04→18:33)
--- NOTE | 2021-12-15 09:38 | PM.PNCARD ---
Progress Note: A&P Assessment and Plan (1) CHF (congestive heart failure): Qualifiers: Heart failure chronicity: acute on chronic Heart failure type: right-sided Qualified Code(s): I50.813 - Acute on chronic right heart failure Code(s): I50.9 - Heart failure, unspecified Status: Acute Assessment and Plan: History essentially of cor pulmonale with severe pulmonary hypertension related chronic hypoxic respiratory failure with RV enlargement admitted with worsening lower extremity edema shortness breath secondary to noncompliance with diuretic therapy. She has preserved LV systolic function. Continue diuresis with Bumex 1.5mg b.i.d. Continue to monitor renal function and electrolytes closely. Renal function improved today. Not diuresing much, though somewhat difficult to assess because she has lots of unmeasured urine documented. Recommend maradiaga placement for accurate I&O. Will give one dose of metolazone tonight and monitor for response Compliance with medication, low sodium intake, management of chronic hypoxic respiratory failure. Echo shows normal LV systolic function with EF 60-65%. Grade II diastolic dysfunction. Moderate pHTN, PASP 52 mmHg. (2) Noncompliance w/medication treatment due to intermit use of medication: Code(s): Z91.14 - Patient's other noncompliance with medication regimen Status: Acute Assessment and Plan: As above, counseled patient on importance of compliance with medication or recommendations to follow-up. (3) Paroxysmal atrial fibrillation: Code(s): I48.0 - Paroxysmal atrial fibrillation Status: Acute Assessment and Plan: New diagnosis with transient episodes on telemetry likely AFib noted during this hospitalization. CHADS2 Vasc score 5. Systemic anticoagulation advised, discontinue clopidogrel and continue aspirin 81 mg daily to reduce bleeding risk. Initiate Eliquis 5 mg b.i.d. Discontinue enoxaparin DVT dosing. Follow H&H in platelet count. Add low-dose metoprolol 12.5 mg twice daily. Continue to monitor on telemetry. (4) Chronic respiratory failure with hypoxia, on home oxygen therapy: Code(s): J96.11 - Chronic respiratory failure with hypoxia; Z99.81 - Dependence on supplemental oxygen Status: Acute Assessment and Plan: Continue O2 supplementation. Needs sleep study probable SEAN. Unable to do home sleep study. Management pulmonology as an outpatient. (5) Acute on chronic kidney failure: Qualifiers: Acute renal failure type: unspecified Chronic kidney disease stage: stage 3 (moderate) Chronic kidney disease stage 3 subtype: unspecified whether 3a or 3b Qualified Code(s): N17.9 - Acute kidney failure, unspecified; N18.30 - Chronic kidney disease, stage 3 unspecified Code(s): N17.9 - Acute kidney failure, unspecified; N18.9 - Chronic kidney disease, unspecified Status: Acute Assessment and Plan: Monitor renal function closely. Continue to follow BMP. Replete electrolytes, accurate input and output, daily weight. (6) Cor pulmonale: Code(s): I27.81 - Cor pulmonale (chronic) Status: Acute Assessment and Plan: Moderate by echo from this admission, estimated PASP 52 mmHg. Subjective Date/time seen: 12/15/21 09:38 Cardiology follow up for CHF She feels about the same today. Doesn't have any complaints. No chest pain or palpitations. Breathing is at baseline. Review of Systems Review of Systems: All systems reviewed & are unremarkable except as noted in HPI and below Constitutional: Constitutional: Reports as per HPI and Reports no additional constitutional complaints Eyes: Eyes: Reports as per HPI and Reports no additional eye complaints ENT: Reports system reviewed and no additional complaints, except as documented and Reports as per HPI Cardiovascular: Cardiovascular: Reports as per HPI and Reports no additional cardiovascular complaints Re
--- NOTE | 2021-12-15 11:14 | PM.IMPN ---
Progress Note: A&P Assessment and Plan (1) Right-sided heart failure: Code(s): I50.810 - Right heart failure, unspecified Status: Acute Assessment and Plan: - echo demonstrates left ventricular systolic function is normal with an ejection fraction of 60-65%. There is grade 2 diastolic dysfunction and moderate pulmonary hypertension. - Monitor Vital signs and labs daily - daily weight demonstrates interval increase in weight over course of past four days, despite diuresis. See above comment for daily weight increase. - accurate I&O ordered. We have not been receiving an accurate output as it is documented that pt still has unmeasured voids. Young catheter is ordered today to ensure that we are getting an accurate output as she is being given diuretics. - Cardiology switched diuretic agent from Lasix yesterday to Bumex 1.5 mg. She has received 2 doses to date. - CTA of chest yesterday was performed as she was requiring more oxygen than she normally does and it demonstrated moderate pulmonary edema remaining. - Pt. continues to be Hypervolemic still with 3+ pitting edema from the level of the feet up to the lower abdomen. - 1200 ml fluid restriction initiated. - Appreciate the co-management of Cardiology and their continued efforts in management of her heart failure. (2) Acute on chronic kidney failure: Qualifiers: Acute renal failure type: unspecified Chronic kidney disease stage: stage 3 (moderate) Chronic kidney disease stage 3 subtype: unspecified whether 3a or 3b Qualified Code(s): N17.9 - Acute kidney failure, unspecified; N18.30 - Chronic kidney disease, stage 3 unspecified Code(s): N17.9 - Acute kidney failure, unspecified; N18.9 - Chronic kidney disease, unspecified Status: Acute Assessment and Plan: - Baseline creatinine is 1.0-1.2. She is at baseline creatinine of 1.1. Patient has history of stage 3 chronic kidney disease. She appears to be tolerating diuretics well. - Patient has not been fully compliant with medication therapy. She was counseled for medication compliance - avoid renal offending agents. - Accurate intake and output - daily weight - consider nephrology consultation if any worsening. (3) Hypokalemia: Code(s): E87.6 - Hypokalemia Status: Resolved Assessment and Plan: - Hypokalemia has resolved and her Potassium today is 3.8. (4) Hypertension: Code(s): I10 - Essential (primary) hypertension Status: Acute Assessment and Plan: - Currently stable. Continue home medications (5) Wound of lower extremity: Code(s): S81.809A - Unspecified open wound, unspecified lower leg, initial encounter Status: Acute Assessment and Plan: - wound consultation was performed today and they recommend antifungal cream be applied to the legs. - There are no acute signs an acute infection requiring antibiotic therapy. No immediate concerns of cellulitis. - Will continue to monitor wound status and appearance of lower extremities. - BLE continue to have 3+ pitting edema. - BLE dopplers were ordered yesterday and were performed. They were negative for any DVT. (6) Chronic respiratory failure with hypoxia, on home oxygen therapy: Code(s): J96.11 - Chronic respiratory failure with hypoxia; Z99.81 - Dependence on supplemental oxygen Status: Acute Assessment and Plan: - Acute on chronic. - Worsening of fluid retention, working with Cardiology to effectively diurese. - CTA of chest ordered secondary to increased supplemental oxygen requirement and she is now on 8L high flow oxygen. CTA demonstrated no PE, but there is moderate pulmonary edema, cardiomegaly and bronchomalacia. Coincidentally, Ascites is noted also. - Continue supplemental oxygenation and monitor. - ABG performed last evening with preserved pH, normal PCO2, and hypoxemia w/PCO2 of 57.1. (7) Paroxysmal atrial fibrillation
--- NOTE | 2021-12-15 12:19 | PCOTNOTE ---
Patient just received lunch, declined OT at this time. Last patient for OT schedule this date, will continue plan of care tomorrow, 12/15/21.
[2021-12-15] MEDS: metOLazone 2.5 MG TABLET PO (17:03)
[2021-12-15] MEDS: MELATONIN 5 MG TABLET PO (21:01)
[2021-12-16] VITALS (12 sets, daily range): BP systolic 100–135; BP diastolic 42–53; PULSE 69–92; RESP 16–20; TEMP 36.4–37; O2SAT 92–97
[2021-12-16 06:35] LABS: Basophils Absolute Auto 0.1 K/mm3 (0.0-0.1); Basophils Percent Auto 0.9 % (0.2-1.2); Eosinophils Absolute Auto 0.5 K/mm3 (0-0.3); Eosinophils Percent Auto 7.4 % (0-4.4); Hematocrit 32.7 % (37.0-47.0); Hemoglobin 10.1 g/dL (12.0-15.0); Immature Granulocyte Absolute 0.05 K/mm3 (0.00-0.031); Immature Granulocyte Percent A 0.7 % (0-0.5); Lymphocytes Absolute Auto 0.86 K/mm3 (0.9-3.2); Lymphocytes Percent Auto 12.2 % (18.3-44.2); Mean Corpuscular HGB Conc 30.9 g/dl (32-36); Mean Corpuscular Hemoglobin 28.4 pg (26-34); Mean Corpuscular Volume 91.9 fl (80-100); Monocytes Absolute Auto 0.9 K/mm3 (0.1-0.6); Monocytes Percent Auto 12.1 % (2.6-8.5); Neutrophils Absolute Auto 4.7 K/mm3 (1.3-6.7); Neutrophils Percent Auto 66.7 % (45.5-73.1); Platelet Count Result 188 k/mm3 (150-375); Red Blood Count 3.56 M/mm3 (4.2-5.4); Red Cell Distribution Width 17.5 % (11.5-14.5)
[2021-12-16 06:54] LABS: Alanine Aminotransferase 11 U/L (6-35); Albumin Level 3.6 g/dL (3.5-5.1); Alkaline Phosphatase 73 U/L (38-126); Anion Gap 9 mmol/L (8-16); Aspartate Amino Transferase 31 U/L (14-36); Bilirubin,Total 1.1 mg/dL (0.2-1.3); Blood Urea Nitrogen 23 mg/dL (7-17); Calcium 8.3 mg/dL (8.4-10.2); Carbon Dioxide 31 mmol/L (22-30); Chloride 95 mmol/L (98-107); Estimated CRCL calculation 46 ml/min; Estimated Glomerular Filt Rate 48; Glucose 85 mg/dL (65-110); Magnesium 1.9 mg/dL (1.6-2.3); Potassium 3.8 mmol/L (3.4-5.0); Sodium 135 mmol/L (137-145)
[2021-12-16] MEDS: FLUTICASONE/UMECLIDIN/VILANTER 100-62.5-25 MCG ELLIPTA 1 PUFF INHALATION (08:24)
[2021-12-16] MEDS: LIDOCAINE 5% PATCH 3 PATCH TRANSDERM (09:08)
[2021-12-16] MEDS: POTASSIUM CHLORIDE 20 MEQ PACKET (FOR LIQUID) PO ×2 (09:09→16:46)
[2021-12-16] MEDS: ASPIRIN 81 MG ENTERIC TABLET PO (09:09)
[2021-12-16] MEDS: amLODIPine BESYLATE 5 MG TABLET 10 MG PO (09:09)
[2021-12-16] MEDS: ESCITALOPRAM OXALATE 10 MG TABLET 20 MG PO (09:10)
[2021-12-16] MEDS: APIXABAN 5 MG TABLET PO ×2 (09:10→20:17)
--- NOTE | 2021-12-16 09:45 | PM.PNCARD ---
Progress Note: A&P Assessment and Plan (1) Right-sided heart failure: Code(s): I50.810 - Right heart failure, unspecified Status: Acute (2) Cor pulmonale: Code(s): I27.81 - Cor pulmonale (chronic) Status: Acute (3) COPD (chronic obstructive pulmonary disease): Code(s): J44.9 - Chronic obstructive pulmonary disease, unspecified Status: Acute Plan 81-year-old lady with volume overload/dyspnea primarily related to COPD and cor pulmonale picture. She is on an aggressive diuretic regimen and does have some chronic peripheral edema which I am sure we will not be able to resolve nor should we try for fear of creating unacceptable pre renal state. Her current diuretic regimen of Bumex and metolazone as resulting in gradual improvement. She requires 6 L of nasal cannula oxygen at home. Current regimen will be continued and we will continue to follow her with you in the hospital. Wolf Rizzo MD [facility] Subjective Date/time seen: date of service:12/16/21 09:45 Interval history: Follow-up visit in this 81-year-old lady with diastolic heart failure, right ventricular dysfunction / cor pulmonale and pulmonary hypertension. She has significant chronic oxygen-dependent COPD. Today she states she is feeling relatively well not experiencing any dyspnea. Exam Narrative: General: Obese elderly female sitting upright in chair, Well developed, alert and oriented x3. No apparent distress, comfortable, pleasant, and cooperative. Head: atraumatic, normocephalic Eyes: EOM intact, sclerae anicteric, conjunctivae unremarkable Ears/Nose: external inspection of ears and nose were grossly normal O2 via nasal cannula Mouth/Throat: oral mucosa pink and moist Neck: supple, normal range of motion, no jugular venous distention or carotid bruits, thyroid nonpalpable, trachea midline. Cardiac: Regular rate and rhythm, normal S1-S2, no murmurs, clicks, gallops, or rubs. Lungs: Diminished breath sounds diffusely, no obvious rales, wheezes, or rhonchi. Abdomen: Morbidly obese, slightly distended, nontender, positive bowel sounds throughout. Unable to appreciable hepatosplenomegaly, no rebound guarding or rigidity noted. Abdominal aorta nonpalpable, no appreciable bruits. Extremities: 1-2+ LLE edema with reddened skin without erythema 2-3+ RLE edema with reddened wound medial LE scabbed, warm without active drainage, no clubbing, and or cyanosis. Extremities warm and well perfused. Skin: Warm and dry without ecchymoses, rashes, and/or petechiae. Musculoskeletal: Muscle strength and tone intact throughout without obvious deformities. Vascular: Carotid upstrokes 2+ bilaterally, radial pulses 2+ bilaterally, dorsalis pedis pulses 1+ bilaterally, Neurologic: Cranial nerves 2-12 grossly intact, examination grossly nonfocal Psychiatric: Mood calm and appropriate. Const: General: comfortable, no acute distress, alert and awake Nutritional Appearance: obese Orientation/consciousness: patient oriented x3 Other: Pleasant, obese female sitting on the edge of the bed. HENMT: Head: normal to inspection Eyes: General: appearance normal, both eyes and all related structures Pupils: Equal, round and reactive pupils present Neck: Neck: normal visual inspection, supple and no JVD Carotids: normal carotid upstroke Other: Difficult to assess for JVD given body habitus Resp: Effort & Inspection: abnormal respiratory effort, able to speak in complete sentences and no respiratory distress Auscultation: clear to auscultation bilaterally and diminished lung sounds Cardio: Rate: regular rate Rhythm: regular rhythm Heart sounds: S1 normal heart sound present, S2 normal heart sound present and no murmurs Other: distant heart sounds GI: Auscultation: normal bowel sounds Skin: General skin exam: normal color Neuro: General: patient oriented x3 Cranial nerves:
--- NOTE | 2021-12-16 11:16 | PC.NURSE ---
patient lost IV access at 0910. had to wait to give IV bumex until re-established IV access
[2021-12-16] MEDS: BUMETANIDE INJ 2.5 MG/10 ML VIAL 1.5 MG IV PUSH ×2 (11:18→16:45)
--- NOTE | 2021-12-16 11:32 | PM.IMPN ---
Progress Note: A&P Assessment and Plan (1) Right-sided heart failure: Code(s): I50.810 - Right heart failure, unspecified Status: Acute Assessment and Plan: - echo demonstrates left ventricular systolic function is normal with an ejection fraction of 60-65%. There is grade 2 diastolic dysfunction and moderate pulmonary hypertension. - Monitor Vital signs and labs daily - daily weight demonstrates interval decreased and wait for the 1st time since over the course of the past 5 days. Weight yesterday was 127.7 kg in his decreased to 126.5 kg today. - accurate I&O ordered. Young catheter was placed to gravity yesterday for increased compliance with accurate I and O measurement. Patient has had interval change in I&O with an intake of 1070, and an output of 1600. Patient does also have improvement on physical exam findings. Renal function is holding with a creatinine of 1.1 and BUN of 23. - Cardiology switched diuretic agent from Lasix yesterday to Bumex 1.5 And the addition of metolazone at night. They are happy with the current results and recommend continuing therapy at this time. - CTA of chest was performed 2 days ago secondary to increased requirement of supplemental oxygen that showed increased pulmonary edema, however the after the addition of metolazone the patient's oxygenation has returned to her baseline 6 L. - patient continues to have peripheral edema, however it is intervally decreased. At this point she seems to be making progress. - 1200 ml fluid restriction Continue - Appreciate the co-management of Cardiology and their continued efforts in management of her heart failure. (2) Acute on chronic kidney failure: Qualifiers: Acute renal failure type: unspecified Chronic kidney disease stage: stage 3 (moderate) Chronic kidney disease stage 3 subtype: unspecified whether 3a or 3b Qualified Code(s): N17.9 - Acute kidney failure, unspecified; N18.30 - Chronic kidney disease, stage 3 unspecified Code(s): N17.9 - Acute kidney failure, unspecified; N18.9 - Chronic kidney disease, unspecified Status: Acute Assessment and Plan: - Baseline creatinine is 1.0-1.2. She is at baseline creatinine of 1.1. Patient has history of stage 3 chronic kidney disease. She appears to be tolerating diuretics well. - Patient has not been fully compliant with medication therapy. She was counseled for medication compliance - avoid renal offending agents. - Accurate intake and output - daily weight - consider nephrology consultation if any worsening. (3) Hypokalemia: Code(s): E87.6 - Hypokalemia Status: Resolved Assessment and Plan: - Hypokalemia has resolved and her Potassium today is 3.8. (4) Hypertension: Code(s): I10 - Essential (primary) hypertension Status: Acute Assessment and Plan: - Currently stable. Continue home medications (5) Wound of lower extremity: Code(s): S81.809A - Unspecified open wound, unspecified lower leg, initial encounter Status: Acute Assessment and Plan: - wound consultation was performed today and they recommend antifungal cream be applied to the legs. - There are no acute signs an acute infection requiring antibiotic therapy. No immediate concerns of cellulitis. - Will continue to monitor wound status and appearance of lower extremities. - BLE continue to have 2+ - BLE dopplers were ordered yesterday and were performed. They were negative for any DVT. - as noted per cardiology patient who likely has a degree of peripheral edema despite adequate diuresis, and I do not expect that it will completely resolve. (6) Chronic respiratory failure with hypoxia, on home oxygen therapy: Code(s): J96.11 - Chronic respiratory failure with hypoxia; Z99.81 - Dependence on supplemental oxygen Status: Acute Assessment and Plan: - Acute on chronic. - Worsening of fluid retenti
[2021-12-16] MEDS: MELATONIN 5 MG TABLET PO (20:17)
[2021-12-16] MEDS: HYDROcodone/acetaminophen (*CRX) 5-325 MG TABLET 1 TAB PO (20:17)
[2021-12-17] VITALS (13 sets, daily range): BP systolic 105–126; BP diastolic 39–66; PULSE 73–83; RESP 16–20; TEMP 36.4–36.7; O2SAT 92–99
[2021-12-17 06:30] LABS: Basophils Absolute Auto 0.1 K/mm3 (0.0-0.1); Basophils Percent Auto 0.8 % (0.2-1.2); Eosinophils Absolute Auto 0.4 K/mm3 (0-0.3); Eosinophils Percent Auto 6.5 % (0-4.4); Hematocrit 32.9 % (37.0-47.0); Immature Granulocyte Absolute 0.04 K/mm3 (0.00-0.031); Immature Granulocyte Percent A 0.6 % (0-0.5); Lymphocytes Absolute Auto 0.98 K/mm3 (0.9-3.2); Lymphocytes Percent Auto 14.8 % (18.3-44.2); Mean Corpuscular HGB Conc 30.4 g/dl (32-36); Mean Corpuscular Hemoglobin 27.9 pg (26-34); Mean Corpuscular Volume 91.6 fl (80-100); Mean Platelet Volume 10.7 fl (7.4-10.4); Monocytes Absolute Auto 0.8 K/mm3 (0.1-0.6); Monocytes Percent Auto 11.7 % (2.6-8.5); Neutrophils Absolute Auto 4.3 K/mm3 (1.3-6.7); Neutrophils Percent Auto 65.6 % (45.5-73.1); Platelet Count Result 173 k/mm3 (150-375); Red Blood Count 3.59 M/mm3 (4.2-5.4); Red Cell Distribution Width 17.5 % (11.5-14.5); White Blood Count 6.6 K/mm3 (4.5-10.0)
[2021-12-17 06:37] LABS: Alanine Aminotransferase 11 U/L (6-35); Albumin Level 3.3 g/dL (3.5-5.1); Alkaline Phosphatase 75 U/L (38-126); Anion Gap 8 mmol/L (8-16); Aspartate Amino Transferase 26 U/L (14-36); Blood Urea Nitrogen 22 mg/dL (7-17); Calcium 8.6 mg/dL (8.4-10.2); Carbon Dioxide 33 mmol/L (22-30); Chloride 91 mmol/L (98-107); Estimated CRCL calculation 46 ml/min; Estimated Glomerular Filt Rate 48; Glucose 79 mg/dL (65-110); Magnesium 1.8 mg/dL (1.6-2.3); Potassium 3.1 mmol/L (3.4-5.0); Sodium 132 mmol/L (137-145)
[2021-12-17] MEDS: FLUTICASONE/UMECLIDIN/VILANTER 100-62.5-25 MCG ELLIPTA 1 PUFF INHALATION (07:41)
--- NOTE | 2021-12-17 08:31 | P.PN_ITS ---
Progress Note: A&P Assessment and Plan (1) Right-sided heart failure: Code(s): I50.810 - Right heart failure, unspecified Status: Acute Assessment and Plan: * echo demonstrates left ventricular systolic function is normal with an ejection fraction of 60-65%.? There is grade 2 diastolic dysfunction and moderate pulmonary hypertension. * weight review 126.5>124.9 * I&O reviewed -1304 * Followed by Cardiology continue Bumex per Cardiology patient is responding gradually to aggressive diuretic regimen. * Continue 1200 ml fluid restriction ? (2) Acute on chronic kidney failure: Qualifiers: Acute renal failure type: unspecified Chronic kidney disease stage: stage 3 (moderate) Chronic kidney disease stage 3 subtype: unspecified whether 3a or 3b Qualified Code(s): N17.9 - Acute kidney failure, unspecified; N18.30 - Chronic kidney disease, stage 3 unspecified Code(s): N17.9 - Acute kidney failure, unspecified; N18.9 - Chronic kidney disease, unspecified Status: Acute Assessment and Plan: * Stable and steady * Stage III * Baseline creatinine 1.0-1.2 today1.10 * Avoid nephrotoxins agents * Will renal dose medication (3) Hypokalemia: Code(s): E87.6 - Hypokalemia Status: Resolved Assessment and Plan: * Secondary to the use of diuretics * Potassium today 3.1 * continue potassium 20 meq bid, given additional dose of potassium at 40 mEq * (4) Hypertension: Code(s): I10 - Essential (primary) hypertension Status: Acute Assessment and Plan: * Blood pressure soft * Continue home medication (5) Wound of lower extremity: Code(s): S81.809A - Unspecified open wound, unspecified lower leg, initial encounter Status: Acute Assessment and Plan: * Wound Care recommends antifungal cream will continue treatment per wound care * No signs and symptoms of infections noted does not require any antibiotic therapy * Doppler negative for DVT (6) Chronic respiratory failure with hypoxia, on home oxygen therapy: Code(s): J96.11 - Chronic respiratory failure with hypoxia; Z99.81 - Dependence on supplemental oxygen Status: Acute Assessment and Plan: * Acute on chronic * Worsening secondary to pulmonary edema * TCA negative for PE * Continue supplementary oxygen patient baseline is 6 L , she is currently on 7 L high-flow nasal cannula. (7) Paroxysmal atrial fibrillation: Code(s): I48.0 - Paroxysmal atrial fibrillation Status: Acute Assessment and Plan: * Controlled * Patient started on Eliquis 5 mg q.12 hours Subjective Date/time seen: 12/17/21 08:31 Interval history: Follow-up visit in this 81-year-old lady with diastolic heart failure, right ventricular dysfunction / cor pulmonale and pulmonary hypertension. She has si gnificant chronic oxygen-dependent COPD. Today she states she is feeling relatively well not experiencing any dyspnea. Objective Data Vital Signs Vital Signs: Vital Signs - 24 hr 12/16/21 09:20 12/16/21 12:00 12/16/21 13:53 Temperature 97.6 F Pulse Rate 83 80 Respiratory Rate 20 Blood Pressure 121/51 L Pulse Oximetry 96 97 Oxygen Delivery High Flow Nasal Cannula Oxygen Flow Rate 7 12/16/21 16:00 12/16/21 19:34 12/16/21 20:22 Temperature 98.6 F Pulse Rate 74 92 Respiratory Rate 16
--- NOTE | 2021-12-17 08:31 | WPDPN ---
Progress Note: A&P Assessment and Plan (1) Right-sided heart failure: Code(s): I50.810 - Right heart failure, unspecified Status: Acute Assessment and Plan: echo demonstrates left ventricular systolic function is normal with an ejection fraction of 60-65%.? There is grade 2 diastolic dysfunction and moderate pulmonary hypertension. weight review 126.5>124.9 I&O reviewed -1304 Followed by Cardiology continue Bumex per Cardiology patient is responding gradually to aggressive diuretic regimen. Continue 1200 ml fluid restriction ? (2) Acute on chronic kidney failure: Qualifiers: Acute renal failure type: unspecified Chronic kidney disease stage: stage 3 (moderate) Chronic kidney disease stage 3 subtype: unspecified whether 3a or 3b Qualified Code(s): N17.9 - Acute kidney failure, unspecified; N18.30 - Chronic kidney disease, stage 3 unspecified Code(s): N17.9 - Acute kidney failure, unspecified; N18.9 - Chronic kidney disease, unspecified Status: Acute Assessment and Plan: Stable and steady Stage III Baseline creatinine 1.0-1.2 today1.10 Avoid nephrotoxins agents Will renal dose medication (3) Hypokalemia: Code(s): E87.6 - Hypokalemia Status: Resolved Assessment and Plan: Secondary to the use of diuretics Potassium today 3.1 continue potassium 20 meq bid, given additional dose of potassium at 40 mEq (4) Hypertension: Code(s): I10 - Essential (primary) hypertension Status: Acute Assessment and Plan: Blood pressure soft Continue home medication (5) Wound of lower extremity: Code(s): S81.809A - Unspecified open wound, unspecified lower leg, initial encounter Status: Acute Assessment and Plan: Wound Care recommends antifungal cream will continue treatment per wound care No signs and symptoms of infections noted does not require any antibiotic therapy Doppler negative for DVT (6) Chronic respiratory failure with hypoxia, on home oxygen therapy: Code(s): J96.11 - Chronic respiratory failure with hypoxia; Z99.81 - Dependence on supplemental oxygen Status: Acute Assessment and Plan: Acute on chronic Worsening secondary to pulmonary edema TCA negative for PE Continue supplementary oxygen patient baseline is 6 L , she is currently on 7 L high-flow nasal cannula. (7) Paroxysmal atrial fibrillation: Code(s): I48.0 - Paroxysmal atrial fibrillation Status: Acute Assessment and Plan: Controlled Patient started on Eliquis 5 mg q.12 hours Subjective Date/time seen: 12/17/21 08:31 Interval history: Follow-up visit in this 81-year-old lady with diastolic heart failure, right ventricular dysfunction / cor pulmonale and pulmonary hypertension. She has significant chronic oxygen-dependent COPD. Today she states she is feeling relatively well not experiencing any dyspnea. Objective Data Vital Signs Vital Signs: Vital Signs - 24 hr 12/16/21 09:20 12/16/21 12:00 12/16/21 13:53 Temperature 97.6 F Pulse Rate 83 80 Respiratory Rate 20 Blood Pressure 121/51 L Pulse Oximetry 96 97 Oxygen Delivery High Flow Nasal Cannula Oxygen Flow Rate 7 12/16/21 16:00 12/16/21 19:34 12/16/21 20:22 Temperature 98.6 F Pulse Rate 74 92 Respiratory Rate 16 Blood Pressure 135/53 L Pulse Oximetry 92 92 Oxygen Delivery High Flow Nasal Cannula Oxygen Flow Rate 7 12/16/21 20:00 12/17/21 00:00 12/17/21 05:07 Temperature 97.6 F Pulse Rate 84 76 79 Respiratory Rate 16 Blood Pressure 105/39 L Pulse Oximetry 99 Oxygen Delivery Oxygen Flow Rate 12/17/21 04:00 12/17/21 07:43 12/17/21 07:44 Temperature Pulse Rate 82 79 79 Respiratory Rate 18 18 Blood Pressure Pulse Oximetry 96 Oxygen Delivery High Flow Nasal Cannula Oxygen Flow Rate 7 Intake/Output Intake/Output: Intake & Output 12/14/21 12/15/21
--- NOTE | 2021-12-17 08:54 | PM.PNCARD ---
Progress Note: A&P Assessment and Plan (1) Right-sided heart failure: Code(s): I50.810 - Right heart failure, unspecified Status: Acute (2) Chronic respiratory failure with hypoxia, on home oxygen therapy: Code(s): J96.11 - Chronic respiratory failure with hypoxia; Z99.81 - Dependence on supplemental oxygen Status: Acute Plan Diastolic CHF/cor pulmonale with peripheral volume overload. Patient is responding gradually to aggressive diuretic regimen. Renal function is still okay according to today's labs. Will continue the current plan of treatment and follow with you. When we start to see evidence of a pre renal state we will have to become less aggressive with her diuresis Wolf Rizzo MD [facility] Subjective Date/time seen: date of service:12/17/21 08:54 Interval history: Follow-up visit in this 81-year-old lady with diastolic heart failure, right ventricular dysfunction / cor pulmonale and pulmonary hypertension. She has significant chronic oxygen-dependent COPD. 12/17/2021: Patient is without significant complaints this morning seated in the bedside chair with the legs elevated enjoying her breakfast. No shortness of breath. Continues to report slow gradual improvement in her edema. Exam Narrative: General: Obese elderly female sitting upright in chair, Well developed, alert and oriented x3. No apparent distress, comfortable, pleasant, and cooperative. Head: atraumatic, normocephalic Eyes: EOM intact, sclerae anicteric, conjunctivae unremarkable Ears/Nose: external inspection of ears and nose were grossly normal O2 via nasal cannula Mouth/Throat: oral mucosa pink and moist Neck: supple, normal range of motion, no jugular venous distention or carotid bruits, thyroid nonpalpable, trachea midline. Cardiac: Regular rate and rhythm, normal S1-S2, no murmurs, clicks, gallops, or rubs. Lungs: Diminished breath sounds diffusely, no obvious rales, wheezes, or rhonchi. Abdomen: Morbidly obese, slightly distended, nontender, positive bowel sounds throughout. Unable to appreciable hepatosplenomegaly, no rebound guarding or rigidity noted. Abdominal aorta nonpalpable, no appreciable bruits. Extremities: 1-2+ LLE edema with reddened skin without erythema 2-3+ RLE edema with reddened wound medial LE scabbed, warm without active drainage, no clubbing, and or cyanosis. Extremities warm and well perfused. Skin: Warm and dry without ecchymoses, rashes, and/or petechiae. Musculoskeletal: Muscle strength and tone intact throughout without obvious deformities. Vascular: Carotid upstrokes 2+ bilaterally, radial pulses 2+ bilaterally, dorsalis pedis pulses 1+ bilaterally, Neurologic: Cranial nerves 2-12 grossly intact, examination grossly nonfocal Psychiatric: Mood calm and appropriate. Const: General: comfortable, no acute distress, alert and awake Nutritional Appearance: obese Orientation/consciousness: patient oriented x3 Other: Pleasant, obese female sitting on the edge of the bed. HENMT: Head: normal to inspection Eyes: General: appearance normal, both eyes and all related structures Pupils: Equal, round and reactive pupils present Neck: Neck: normal visual inspection, supple and no JVD Carotids: normal carotid upstroke Other: Difficult to assess for JVD given body habitus Resp: Effort & Inspection: abnormal respiratory effort, able to speak in complete sentences and no respiratory distress Auscultation: clear to auscultation bilaterally and diminished lung sounds Cardio: Rate: regular rate Rhythm: regular rhythm Heart sounds: S1 normal heart sound present, S2 normal heart sound present and no murmurs Other: distant heart sounds GI: Auscultation: normal bowel sounds Skin: General skin exam: normal color Neuro: General: patient oriented x3 Cranial nerves: Yes Equal, round and reactive pupils present Extrem: General: no
[2021-12-17] MEDS: ASPIRIN 81 MG ENTERIC TABLET PO (09:40)
[2021-12-17] MEDS: ESCITALOPRAM OXALATE 10 MG TABLET 20 MG PO (09:40)
[2021-12-17] MEDS: POTASSIUM CHLORIDE 20 MEQ PACKET (FOR LIQUID) 40 MEQ PO (09:40)
[2021-12-17] MEDS: amLODIPine BESYLATE 5 MG TABLET 10 MG PO (09:40)
[2021-12-17] MEDS: POTASSIUM CHLORIDE 20 MEQ PACKET (FOR LIQUID) PO ×2 (09:40→17:13)
[2021-12-17] MEDS: APIXABAN 5 MG TABLET PO ×2 (09:40→20:05)
[2021-12-17] MEDS: ROSUVASTATIN 5 MG TABLET PO (09:40)
[2021-12-17] MEDS: BUMETANIDE INJ 2.5 MG/10 ML VIAL 1.5 MG IV PUSH ×2 (09:41→17:13)
[2021-12-17] MEDS: LIDOCAINE 5% PATCH 3 PATCH TRANSDERM (09:41)
[2021-12-17] MEDS: MELATONIN 5 MG TABLET 10 MG PO (21:11)
[2021-12-17] MEDS: HYDROcodone/acetaminophen (*CRX) 5-325 MG TABLET 1 TAB PO (21:12)
[2021-12-18] VITALS (10 sets, daily range): BP systolic 100–118; BP diastolic 42–76; PULSE 69–81; RESP 14–20; TEMP 36.6–36.7; O2SAT 92–97
[2021-12-18] MEDS: HYDROcodone/acetaminophen (*CRX) 5-325 MG TABLET 1 TAB PO ×2 (03:55→18:21)
[2021-12-18 05:44] LABS: Hematocrit 31.2 % (37.0-47.0); Hemoglobin 9.5 g/dL (12.0-15.0); Mean Corpuscular HGB Conc 30.4 g/dl (32-36); Mean Corpuscular Hemoglobin 27.9 pg (26-34); Mean Corpuscular Volume 91.5 fl (80-100); Mean Platelet Volume 10.8 fl (7.4-10.4); Platelet Count Result 174 k/mm3 (150-375); Red Blood Count 3.41 M/mm3 (4.2-5.4); Red Cell Distribution Width 17.6 % (11.5-14.5); White Blood Count 7.3 K/mm3 (4.5-10.0)
[2021-12-18 07:51] LABS: Anion Gap 8 mmol/L (8-16); Blood Urea Nitrogen 20 mg/dL (7-17); Calcium 8.7 mg/dL (8.4-10.2); Carbon Dioxide 35 mmol/L (22-30); Chloride 90 mmol/L (98-107); Estimated CRCL calculation 45 ml/min; Estimated Glomerular Filt Rate 48; Glucose 83 mg/dL (65-110); Magnesium 1.8 mg/dL (1.6-2.3); Potassium 3.3 mmol/L (3.4-5.0); Sodium 133 mmol/L (137-145)
[2021-12-18] MEDS: ESCITALOPRAM OXALATE 10 MG TABLET 20 MG PO (07:59)
[2021-12-18] MEDS: APIXABAN 5 MG TABLET PO ×2 (07:59→20:53)
[2021-12-18] MEDS: amLODIPine BESYLATE 5 MG TABLET 10 MG PO (07:59)
[2021-12-18] MEDS: LIDOCAINE 5% PATCH 3 PATCH TRANSDERM (08:00)
[2021-12-18] MEDS: ASPIRIN 81 MG ENTERIC TABLET PO (08:00)
[2021-12-18] MEDS: BUMETANIDE INJ 2.5 MG/10 ML VIAL 1.5 MG IV PUSH ×2 (08:00→16:17)
[2021-12-18] MEDS: POTASSIUM CHLORIDE 20 MEQ PACKET (FOR LIQUID) PO ×2 (08:02→16:17)
[2021-12-18] MEDS: WATER FOR IRRIGATION, STERILE 1,000 ML BOTTLE 1000 ML (08:03)
--- NOTE | 2021-12-18 08:34 | PM.IMPN ---
Progress Note: A&P Assessment and Plan (1) Right-sided heart failure: Code(s): I50.810 - Right heart failure, unspecified Status: Acute Assessment and Plan: Echo demonstrates left ventricular systolic function is normal with an ejection fraction of 60-65%.? There is grade 2 diastolic dysfunction and moderate pulmonary hypertension. Fluid restriction discontinued, continue IV diuresis per Cardiology (2) Acute on chronic kidney failure: Qualifiers: Acute renal failure type: unspecified Chronic kidney disease stage: stage 3 (moderate) Chronic kidney disease stage 3 subtype: unspecified whether 3a or 3b Qualified Code(s): N17.9 - Acute kidney failure, unspecified; N18.30 - Chronic kidney disease, stage 3 unspecified Code(s): N17.9 - Acute kidney failure, unspecified; N18.9 - Chronic kidney disease, unspecified Status: Acute Assessment and Plan: Resolved, at baseline (3) Hypokalemia: Code(s): E87.6 - Hypokalemia Status: Resolved Assessment and Plan: Improved from yesterday, still a little low, replete and recheck tomorrow (4) Hypertension: Code(s): I10 - Essential (primary) hypertension Status: Acute Assessment and Plan: stable (5) Wound of lower extremity: Code(s): S81.809A - Unspecified open wound, unspecified lower leg, initial encounter Status: Acute Assessment and Plan: monitor, receiving antifungal ointment (6) Chronic respiratory failure with hypoxia, on home oxygen therapy: Code(s): J96.11 - Chronic respiratory failure with hypoxia; Z99.81 - Dependence on supplemental oxygen Status: Acute Assessment and Plan: stable on 6L nc which is the patient's baseline (7) Paroxysmal atrial fibrillation: Code(s): I48.0 - Paroxysmal atrial fibrillation Status: Acute Assessment and Plan: cont rosey Subjective Date/time seen: 12/18/21 08:34 Interval history: Sitting up in the chair, watching TV. No complaints. She states she feels back to baseline. No overnight events noted. No chest pain or shortness of breath. No nausea, vomiting or diarrhea. No fevers or chills. Review of Systems Review of Systems: All systems reviewed & are unremarkable except as noted in HPI and below Exam Narrative: General: No acute distress, alert and oriented per baseline, on 6 L nasal cannula, which is her baseline HEENT: Atraumatic, normocephalic, mucous membranes moist CV: S1, S2, regular rate and rhythm, no murmurs rubs or gallops Lungs: Diminished at bases, good air entry Abdomen: Soft, nontender, nondistended Extremities: Normal to inspection Skin: No rashes noted, no lesions or wounds seen Psych: Euthymic, normal affect Objective Data Vital Signs Vital Signs: Vital Signs - 24 hr 12/17/21 09:46 12/17/21 09:50 12/17/21 12:00 Temperature Pulse Rate 76 73 Respiratory Rate 20 Blood Pressure 112/66 Pulse Oximetry 95 95 Oxygen Delivery High Flow Nasal Cannula Oxygen Flow Rate 6 12/17/21 14:25 12/17/21 16:00 12/17/21 20:29 Temperature 98.0 F 97.7 F Pulse Rate 76 83 78 Respiratory Rate 20 16 Blood Pressure 126/51 L 119/54 L Pulse Oximetry 94 92 Oxygen Delivery Oxygen Flow Rate 12/17/21 20:00 12/17/21 20:00 12/18/21 00:00 Temperature Pulse Rate 81 81 Respiratory Rate Blood Pressure Pulse Oximetry 92 Oxygen Delivery High Flow Nasal Cannula Oxygen Flow Rate 6 12/18/21 04:00 12/18/21 06:32 Temperature 98.1 F Pulse Rate 74 78 Respiratory Rate 14 Blood Pressure 110/59 L Pulse Oximetry 97 Oxygen Delivery Oxygen Flow Rate Intake/Output Intake/Output: Intake & Output 12/15/21 12/16/21 12/17/21 12/18/21 23:59 23:59 23:59 23:59 Intake Total 990 1616 1000 350 Output Total 650 3200 2000 1000 Balance 340 -1584 -1000 -650 Meds/Results Medications: Active Medications Generic Name Dose Route
--- NOTE | 2021-12-18 08:52 | PM.PNCARD ---
Progress Note: A&P Assessment and Plan (1) Right-sided heart failure: Code(s): I50.810 - Right heart failure, unspecified Status: Acute Assessment and Plan: History essentially of cor pulmonale with severe pulmonary hypertension related chronic hypoxic respiratory failure with RV enlargement admitted with worsening lower extremity edema shortness breath secondary to noncompliance with diuretic therapy.? She has preserved LV systolic function. Continue diuresis with Bumex 1.5mg b.i.d.? Continue to monitor renal function and electrolytes closely.? Renal function stable today. Continue diuresis with IV bumex for now since she is not showing evidence of pre renal azotemia and appears to still be benefiting from aggressive diuresis Compliance with medication, low sodium intake, management of chronic hypoxic respiratory failure.? Echo shows normal LV systolic function with EF 60-65%.? Grade II diastolic dysfunction.? Moderate pHTN, PASP 52 mmHg. (2) Chronic respiratory failure with hypoxia, on home oxygen therapy: Code(s): J96.11 - Chronic respiratory failure with hypoxia; Z99.81 - Dependence on supplemental oxygen Status: Acute Assessment and Plan: On supplemental O2. Pulmonology following. Subjective Date/time seen: 12/18/21 08:52 Interval history: Follow-up visit in this 81-year-old lady with diastolic heart failure, right ventricular dysfunction / cor pulmonale and pulmonary hypertension. She has significant chronic oxygen-dependent COPD. 12/17/2021: Patient is without significant complaints this morning seated in the bedside chair with the legs elevated enjoying her breakfast. No shortness of breath. Continues to report slow gradual improvement in her edema. Date of service 12/18/2021: Feels about the same today and does not have any complaints. Swelling is perhaps slightly better. Reports improvement in her breathing. Review of Systems Review of Systems: All systems reviewed & are unremarkable except as noted in HPI and below Constitutional: Constitutional: Reports as per HPI and Reports no additional constitutional complaints Eyes: Eyes: Reports as per HPI and Reports no additional eye complaints ENT: Reports system reviewed and no additional complaints, except as documented and Reports as per HPI Cardiovascular: Cardiovascular: Reports as per HPI and Reports no additional cardiovascular complaints Respiratory: Respiratory: Reports as per HPI and Reports no additional respiratory complaints Gastrointestinal: Gastrointestinal: Reports as per HPI and Reports no additional gastrointestinal complaints Genitourinary: Genitourinary: Reports as per HPI Musculoskeletal: Musculoskeletal: Reports no additional musculoskeletal complaints and Reports as per HPI Integumentary/Breasts: Skin/Breast: Reports system reviewed and no additional complaints, except as docu and Reports as per HPI Neurologic: Reports system reviewed and no additional complaints, except as documented and Reports as per HPI Psychiatric: Psychiatric: Reports no additional psychiatric complaints and Reports as per HPI Endocrine: Endocrine: Reports no additional endocrine complaints and Reports as per HPI Hematologic/Lymphatic: Hematologic/Lymphatic: Reports no additional hematologic/lymphatic complaints and Reports as per HPI Allergic/Immunologic: Allergic/Immunologic: Reports no additional allergic/immunologic complaints and Reports as per HPI Exam Const: General: comfortable, no acute distress, alert and awake Nutritional Appearance: obese Orientation/consciousness: patient oriented x3 Other: Pleasant, obese female sitting on the edge of the bed. HENMT: Head: normal to inspection Eyes: General: appearance normal, both eyes and all related structures Pupils: Equal, round and reactive pupils present Neck: Neck: normal visual inspection, supple and no JVD Carotids: normal carotid upstroke
--- NOTE | 2021-12-18 09:25 | PCOTNOTE ---
Patient just received breakfast, declined OT at this time. Will continue plan of care.
[2021-12-18] MEDS: POTASSIUM CHLORIDE 20 MEQ TABLET 40 MEQ PO (09:28)
[2021-12-18] MEDS: LEVOTHYROXINE SODIUM 88 MCG TABLET PO (09:41)
[2021-12-18] MEDS: FLUTICASONE/UMECLIDIN/VILANTER 100-62.5-25 MCG ELLIPTA 1 PUFF INHALATION (10:39)
[2021-12-18] MEDS: MELATONIN 5 MG TABLET 10 MG PO (20:52)
[2021-12-19] VITALS (14 sets, daily range): BP systolic 100–135; BP diastolic 44–63; PULSE 67–80; RESP 18–20; TEMP 36.2–36.9; O2SAT 91–98
[2021-12-19] MEDS: HYDROcodone/acetaminophen (*CRX) 5-325 MG TABLET 1 TAB PO ×3 (00:34→20:06)
--- NOTE | 2021-12-19 03:09 | PC.NURSE ---
This RN has supervised Yesica Ventura and her documentation for the 7pm to 7am shift.
[2021-12-19 05:45] LABS: Basophils Absolute Auto 0.1 K/mm3 (0.0-0.1); Basophils Percent Auto 0.8 % (0.2-1.2); Eosinophils Absolute Auto 0.4 K/mm3 (0-0.3); Eosinophils Percent Auto 6.3 % (0-4.4); Hematocrit 33.1 % (37.0-47.0); Hemoglobin 10.1 g/dL (12.0-15.0); Immature Granulocyte Absolute 0.05 K/mm3 (0.00-0.031); Immature Granulocyte Percent A 0.8 % (0-0.5); Lymphocytes Absolute Auto 1.03 K/mm3 (0.9-3.2); Lymphocytes Percent Auto 15.8 % (18.3-44.2); Mean Corpuscular HGB Conc 30.5 g/dl (32-36); Mean Corpuscular Hemoglobin 27.7 pg (26-34); Mean Corpuscular Volume 90.7 fl (80-100); Mean Platelet Volume 10.9 fl (7.4-10.4); Monocytes Absolute Auto 0.8 K/mm3 (0.1-0.6); Monocytes Percent Auto 11.5 % (2.6-8.5); Neutrophils Absolute Auto 4.2 K/mm3 (1.3-6.7); Neutrophils Percent Auto 64.8 % (45.5-73.1); Platelet Count Result 170 k/mm3 (150-375); Red Blood Count 3.65 M/mm3 (4.2-5.4); Red Cell Distribution Width 17.6 % (11.5-14.5); White Blood Count 6.5 K/mm3 (4.5-10.0)
[2021-12-19 06:01] LABS: Alanine Aminotransferase 11 U/L (6-35); Albumin Level 3.2 g/dL (3.5-5.1); Alkaline Phosphatase 82 U/L (38-126); Anion Gap 8 mmol/L (8-16); Aspartate Amino Transferase 25 U/L (14-36); Bilirubin,Total 0.9 mg/dL (0.2-1.3); Blood Urea Nitrogen 20 mg/dL (7-17); Calcium 8.6 mg/dL (8.4-10.2); Carbon Dioxide 35 mmol/L (22-30); Chloride 90 mmol/L (98-107); Estimated CRCL calculation 42 ml/min; Estimated Glomerular Filt Rate 43; Glucose 85 mg/dL (65-110); Potassium 3.2 mmol/L (3.4-5.0); Sodium 133 mmol/L (137-145)
[2021-12-19] MEDS: LEVOTHYROXINE SODIUM 88 MCG TABLET PO (06:20)
[2021-12-19] MEDS: BUMETANIDE INJ 2.5 MG/10 ML VIAL 1.5 MG IV PUSH ×2 (08:36→16:07)
[2021-12-19] MEDS: POTASSIUM CHLORIDE 20 MEQ PACKET (FOR LIQUID) PO (08:37)
[2021-12-19] MEDS: LIDOCAINE 5% PATCH 3 PATCH TRANSDERM (08:37)
[2021-12-19] MEDS: ASPIRIN 81 MG ENTERIC TABLET PO (08:37)
[2021-12-19] MEDS: amLODIPine BESYLATE 5 MG TABLET 10 MG PO (08:37)
[2021-12-19] MEDS: ESCITALOPRAM OXALATE 10 MG TABLET 20 MG PO (08:37)
[2021-12-19] MEDS: ROSUVASTATIN 5 MG TABLET PO (08:37)
[2021-12-19] MEDS: APIXABAN 5 MG TABLET PO ×2 (08:37→20:06)
[2021-12-19] MEDS: POTASSIUM CHLORIDE 20 MEQ TABLET 40 MEQ PO (08:37)
[2021-12-19] MEDS: FLUTICASONE/UMECLIDIN/VILANTER 100-62.5-25 MCG ELLIPTA 1 PUFF INHALATION (08:48)
--- NOTE | 2021-12-19 10:11 | PCNWS ---
Weekly nutritional screen. Patient is tolerating a heart healthy diet with adequate intake of 75-100% all meals. No weight loss reported. No nutritional needs at this time.
--- NOTE | 2021-12-19 11:06 | PM.PNCARD ---
Progress Note: A&P Assessment and Plan (1) Right-sided heart failure: Code(s): I50.810 - Right heart failure, unspecified Status: Acute Assessment and Plan: History essentially of cor pulmonale with severe pulmonary hypertension related chronic hypoxic respiratory failure with RV enlargement admitted with worsening lower extremity edema shortness breath secondary to noncompliance with diuretic therapy.? She has preserved LV systolic function. Continue diuresis with Bumex 1.5mg b.i.d.? Continue to monitor renal function and electrolytes closely.? Renal function stable today. Hypokalemic with potassium 3.2 this morning - this has been repleted. Continue diuresis with IV bumex for now since she is not showing evidence of pre renal azotemia and appears to still be benefiting from aggressive diuresis Compliance with medication, low sodium intake, management of chronic hypoxic respiratory failure.? Echo shows normal LV systolic function with EF 60-65%.? Grade II diastolic dysfunction.? Moderate pHTN, PASP 52 mmHg. (2) Chronic respiratory failure with hypoxia, on home oxygen therapy: Code(s): J96.11 - Chronic respiratory failure with hypoxia; Z99.81 - Dependence on supplemental oxygen Status: Acute Assessment and Plan: On supplemental O2. Pulmonology following. Subjective Date/time seen: 12/19/21 11:06 Cardiology follow up for CHF Interval history: Follow-up visit in this 81-year-old lady with diastolic heart failure, right ventricular dysfunction / cor pulmonale and pulmonary hypertension. She has significant chronic oxygen-dependent COPD. 12/17/2021: Patient is without significant complaints this morning seated in the bedside chair with the legs elevated enjoying her breakfast. No shortness of breath. Continues to report slow gradual improvement in her edema. Date of service 12/18/2021: Feels about the same today and does not have any complaints. Swelling is perhaps slightly better. Reports improvement in her breathing. Date of service 12/19/2021: No major changes overnight. Does not have any complaints today. Review of Systems Review of Systems: All systems reviewed & are unremarkable except as noted in HPI and below Constitutional: Constitutional: Reports as per HPI and Reports no additional constitutional complaints Eyes: Eyes: Reports as per HPI and Reports no additional eye complaints ENT: Reports system reviewed and no additional complaints, except as documented and Reports as per HPI Cardiovascular: Cardiovascular: Reports as per HPI and Reports no additional cardiovascular complaints Respiratory: Respiratory: Reports as per HPI and Reports no additional respiratory complaints Gastrointestinal: Gastrointestinal: Reports as per HPI and Reports no additional gastrointestinal complaints Genitourinary: Genitourinary: Reports as per HPI Musculoskeletal: Musculoskeletal: Reports no additional musculoskeletal complaints and Reports as per HPI Integumentary/Breasts: Skin/Breast: Reports system reviewed and no additional complaints, except as docu and Reports as per HPI Neurologic: Reports system reviewed and no additional complaints, except as documented and Reports as per HPI Psychiatric: Psychiatric: Reports no additional psychiatric complaints and Reports as per HPI Endocrine: Endocrine: Reports no additional endocrine complaints and Reports as per HPI Hematologic/Lymphatic: Hematologic/Lymphatic: Reports no additional hematologic/lymphatic complaints and Reports as per HPI Allergic/Immunologic: Allergic/Immunologic: Reports no additional allergic/immunologic complaints and Reports as per HPI Exam Const: General: comfortable, no acute distress, alert and awake Nutritional Appearance: obese Orientation/consciousness: patient oriented x3 Other: Pleasant, obese female sitting on the edge of the bed. HENMT: Head: normal to inspection Eyes: General:
--- NOTE | 2021-12-19 13:51 | PCPTNOTE ---
Patient refused treatment this session. Patient did not give a reason why, other than she does not want too.
--- NOTE | 2021-12-19 16:51 | PM.IMPN ---
Progress Note: A&P Assessment and Plan (1) Right-sided heart failure: Code(s): I50.810 - Right heart failure, unspecified Status: Acute Assessment and Plan: Echo demonstrates left ventricular systolic function is normal with an ejection fraction of 60-65%.? There is grade 2 diastolic dysfunction and moderate pulmonary hypertension. Continue IV diuresis per Cardiology, slight improvement each day, anticipate d/c on oral diuresis soon (2) Acute on chronic kidney failure: Qualifiers: Acute renal failure type: unspecified Chronic kidney disease stage: stage 3 (moderate) Chronic kidney disease stage 3 subtype: unspecified whether 3a or 3b Qualified Code(s): N17.9 - Acute kidney failure, unspecified; N18.30 - Chronic kidney disease, stage 3 unspecified Code(s): N17.9 - Acute kidney failure, unspecified; N18.9 - Chronic kidney disease, unspecified Status: Acute Assessment and Plan: slight bump in creatinine from 1.1 to 1.2 (3) Hypokalemia: Code(s): E87.6 - Hypokalemia Status: Resolved Assessment and Plan: Improved from yesterday, still a little low, replete and recheck tomorrow (4) Hypertension: Code(s): I10 - Essential (primary) hypertension Status: Acute Assessment and Plan: stable (5) Wound of lower extremity: Code(s): S81.809A - Unspecified open wound, unspecified lower leg, initial encounter Status: Acute Assessment and Plan: monitor, receiving antifungal ointment (6) Chronic respiratory failure with hypoxia, on home oxygen therapy: Code(s): J96.11 - Chronic respiratory failure with hypoxia; Z99.81 - Dependence on supplemental oxygen Status: Acute Assessment and Plan: stable on 6L nc which is the patient's baseline (7) Paroxysmal atrial fibrillation: Code(s): I48.0 - Paroxysmal atrial fibrillation Status: Acute Assessment and Plan: cont eliquis Subjective Date/time seen: 12/19/21 16:51 Interval history: Patient resting comfortably without complaints. States she feels like she is back to baseline and is eager to go home. No overnight events noted. No chest pain or shortness of breath. No nausea, vomiting or diarrhea. No fevers or chills. Review of Systems Review of Systems: All systems reviewed & are unremarkable except as noted in HPI and below Exam Narrative: General: No acute distress, alert and oriented per baseline, on 6 L nasal cannula, which is her baseline HEENT: Atraumatic, normocephalic, mucous membranes moist CV: S1, S2, regular rate and rhythm, no murmurs rubs or gallops Lungs: Diminished at bases, good air entry Abdomen: Soft, nontender, nondistended Extremities: Normal to inspection Skin: No rashes noted, no lesions or wounds seen Psych: Euthymic, normal affect Objective Data Vital Signs Vital Signs: Vital Signs - 24 hr 12/18/21 19:48 12/18/21 20:00 12/19/21 03:55 Temperature 97.8 F 97.8 F Pulse Rate 74 78 Respiratory Rate 20 20 Blood Pressure 100/42 L 100/48 L Pulse Oximetry 92 92 98 Oxygen Delivery High Flow Nasal Cannula Oxygen Flow Rate 7 12/18/21 20:00 12/19/21 01:25 12/19/21 04:00 Temperature Pulse Rate 75 74 69 Respiratory Rate Blood Pressure Pulse Oximetry Oxygen Delivery Oxygen Flow Rate 12/19/21 08:54 12/19/21 08:30 12/19/21 08:34 Temperature Pulse Rate 80 Respiratory Rate Blood Pressure 135/63 Pulse Oximetry 92 98 98 Oxygen Delivery High Flow Nasal Cannula High Flow Nasal Cannula Oxygen Flow Rate 6 7 12/19/21 08:35 12/19/21 08:00 12/19/21 12:00 Temperature Pulse Rate 67 77 Respiratory Rate Blood Pressure Pulse Oximetry 97 Oxygen Delivery High Flow Nasal Cannula Oxygen Flow Rate 6 Intake/Output Intake/Output: Intake & Output 12/16/21 12/17/21 12/18/21 12/19/21 23:59 23:59 23:59 23:59 Intake Total 1616 1000 1130 1290 Outp
[2021-12-19] MEDS: MELATONIN 5 MG TABLET 10 MG PO (20:07)
[2021-12-20] VITALS (11 sets, daily range): BP systolic 102–130; BP diastolic 43–57; PULSE 69–86; RESP 16–96; TEMP 36.4–36.8; O2SAT 92–96
[2021-12-20] MEDS: HYDROcodone/acetaminophen (*CRX) 5-325 MG TABLET 1 TAB PO ×2 (05:21→18:49)
[2021-12-20] MEDS: LEVOTHYROXINE SODIUM 88 MCG TABLET PO (06:14)
[2021-12-20 06:22] LABS: Basophils Absolute Auto 0.1 K/mm3 (0.0-0.1); Basophils Percent Auto 0.9 % (0.2-1.2); Eosinophils Absolute Auto 0.4 K/mm3 (0-0.3); Eosinophils Percent Auto 5.4 % (0-4.4); Hematocrit 32.2 % (37.0-47.0); Hemoglobin 9.7 g/dL (12.0-15.0); Immature Granulocyte Absolute 0.06 K/mm3 (0.00-0.031); Immature Granulocyte Percent A 0.8 % (0-0.5); Lymphocytes Absolute Auto 1.09 K/mm3 (0.9-3.2); Mean Corpuscular HGB Conc 30.1 g/dl (32-36); Mean Corpuscular Hemoglobin 27.8 pg (26-34); Mean Corpuscular Volume 92.3 fl (80-100); Mean Platelet Volume 10.8 fl (7.4-10.4); Monocytes Absolute Auto 0.9 K/mm3 (0.1-0.6); Neutrophils Absolute Auto 5.3 K/mm3 (1.3-6.7); Neutrophils Percent Auto 67.9 % (45.5-73.1); Platelet Count Result 180 k/mm3 (150-375); Red Blood Count 3.49 M/mm3 (4.2-5.4); Red Cell Distribution Width 17.7 % (11.5-14.5); White Blood Count 7.8 K/mm3 (4.5-10.0)
[2021-12-20 06:41] LABS: Alanine Aminotransferase 10 U/L (6-35); Albumin Level 3.5 g/dL (3.5-5.1); Alkaline Phosphatase 85 U/L (38-126); Anion Gap 9 mmol/L (8-16); Aspartate Amino Transferase 25 U/L (14-36); Bilirubin,Total 1.1 mg/dL (0.2-1.3); Blood Urea Nitrogen 20 mg/dL (7-17); Calcium 8.8 mg/dL (8.4-10.2); Carbon Dioxide 36 mmol/L (22-30); Chloride 89 mmol/L (98-107); Estimated CRCL calculation 38 ml/min; Estimated Glomerular Filt Rate 39; Glucose 86 mg/dL (65-110); Potassium 3.2 mmol/L (3.4-5.0); Sodium 134 mmol/L (137-145)
[2021-12-20] MEDS: POTASSIUM CHLORIDE 20 MEQ TABLET.ER 40 MEQ PO (08:12)
[2021-12-20] MEDS: amLODIPine BESYLATE 5 MG TABLET 10 MG PO (08:12)
[2021-12-20] MEDS: ASPIRIN 81 MG ENTERIC TABLET PO (08:12)
[2021-12-20] MEDS: ESCITALOPRAM OXALATE 10 MG TABLET 20 MG PO (08:12)
[2021-12-20] MEDS: BUMETANIDE INJ 2.5 MG/10 ML VIAL 1.5 MG IV PUSH (08:12)
[2021-12-20] MEDS: LIDOCAINE 5% PATCH 3 PATCH TRANSDERM (08:13)
[2021-12-20] MEDS: APIXABAN 5 MG TABLET PO ×2 (08:13→20:13)
[2021-12-20] MEDS: FLUTICASONE/UMECLIDIN/VILANTER 100-62.5-25 MCG ELLIPTA 1 PUFF INHALATION (08:55)
--- NOTE | 2021-12-20 10:46 | PM.PNCARD ---
Progress Note: A&P Assessment and Plan (1) CHF (congestive heart failure): Qualifiers: Heart failure chronicity: acute on chronic Heart failure type: right-sided Qualified Code(s): I50.813 - Acute on chronic right heart failure Code(s): I50.9 - Heart failure, unspecified Status: Acute Plan 81-year-old lady with: Significant edema/peripheral volume overload primarily related to obesity and pulmonary hypertension. Left ventricular systolic function is normal. I am going to transition to Bumex 2 mg p.o. daily starting tomorrow morning and stop the IV Bumex. I believe discharge tomorrow is reasonable barring any problems. She will need to practice significant fluid and sodium restriction in order to control this edema in addition to taking her diuretics. She understands this after this discussion and would like to be discharged relatively soon. She has probably achieved maximum benefit of being in the hospital at this time Wolf Rizzo MD [facility] Subjective Date/time seen: Date of service:12/20/21 10:46 Interval history: Follow-up visit in this 81-year-old lady with diastolic heart failure, right ventricular dysfunction / cor pulmonale and pulmonary hypertension. She has significant chronic oxygen-dependent COPD. 12/17/2021: Patient is without significant complaints this morning seated in the bedside chair with the legs elevated enjoying her breakfast. No shortness of breath. Continues to report slow gradual improvement in her edema. Date of service 12/18/2021: Feels about the same today and does not have any complaints. Swelling is perhaps slightly better. Reports improvement in her breathing. Date of service 12/19/2021: No major changes overnight. Does not have any complaints today. Date of service 12/20/2021: Clinically unchanged, slow diuresis continues. The patient and hospitalist considering discharge relatively soon. Discussed with the patient her chronic edema which we will not be able to resolve simply with diuretics given her pulmonary hypertension and morbid obesity. I will transition her to a oral Bumex regimen at this time Exam Narrative: General: Obese elderly female sitting upright in chair, Well developed, alert and oriented x3. No apparent distress, comfortable, pleasant, and cooperative. Head: atraumatic, normocephalic Eyes: EOM intact, sclerae anicteric, conjunctivae unremarkable Ears/Nose: external inspection of ears and nose were grossly normal O2 via nasal cannula Mouth/Throat: oral mucosa pink and moist Neck: supple, normal range of motion, no jugular venous distention or carotid bruits, thyroid nonpalpable, trachea midline. Cardiac: Regular rate and rhythm, normal S1-S2, no murmurs, clicks, gallops, or rubs. Lungs: Diminished breath sounds diffusely, no obvious rales, wheezes, or rhonchi. Abdomen: Morbidly obese, slightly distended, nontender, positive bowel sounds throughout. Unable to appreciable hepatosplenomegaly, no rebound guarding or rigidity noted. Abdominal aorta nonpalpable, no appreciable bruits. Extremities: 1-2+ LLE edema with reddened skin without erythema 2-3+ RLE edema with reddened wound medial LE scabbed, warm without active drainage, no clubbing, and or cyanosis. Extremities warm and well perfused. Skin: Warm and dry without ecchymoses, rashes, and/or petechiae. Musculoskeletal: Muscle strength and tone intact throughout without obvious deformities. Vascular: Carotid upstrokes 2+ bilaterally, radial pulses 2+ bilaterally, dorsalis pedis pulses 1+ bilaterally, Neurologic: Cranial nerves 2-12 grossly intact, examination grossly nonfocal Psychiatric: Mood calm and appropriate. Const: General: comfortable, no acute distress, alert and awake Nutritional Appearance: obese Orientation/consciousness: patient oriented x3 Other: Pleasant, obese female sitting on the edge of the b
--- NOTE | 2021-12-20 12:05 | PM.IMPN ---
Progress Note: A&P Assessment and Plan (1) Right-sided heart failure: Code(s): I50.810 - Right heart failure, unspecified Status: Acute Assessment and Plan: Echo demonstrates left ventricular systolic function is normal with an ejection fraction of 60-65%.? There is grade 2 diastolic dysfunction and moderate pulmonary hypertension. started on IV diuresis Weight is down Monitor I and O Bumex changed to oral by jack spinner (2) Acute on chronic kidney failure: Qualifiers: Acute renal failure type: unspecified Chronic kidney disease stage: stage 3 (moderate) Chronic kidney disease stage 3 subtype: unspecified whether 3a or 3b Qualified Code(s): N17.9 - Acute kidney failure, unspecified; N18.30 - Chronic kidney disease, stage 3 unspecified Code(s): N17.9 - Acute kidney failure, unspecified; N18.9 - Chronic kidney disease, unspecified Status: Acute Assessment and Plan: creatinine overall stable with diuresis (3) Hypokalemia: Code(s): E87.6 - Hypokalemia Status: Resolved Assessment and Plan: replace and recheck and monitor (4) Hypertension: Code(s): I10 - Essential (primary) hypertension Status: Acute Assessment and Plan: stable (5) Wound of lower extremity: Code(s): S81.809A - Unspecified open wound, unspecified lower leg, initial encounter Status: Acute Assessment and Plan: monitor, receiving antifungal ointment (6) Chronic respiratory failure with hypoxia, on home oxygen therapy: Code(s): J96.11 - Chronic respiratory failure with hypoxia; Z99.81 - Dependence on supplemental oxygen Status: Acute Assessment and Plan: stable on 6L nc which is the patient's baseline (7) Paroxysmal atrial fibrillation: Code(s): I48.0 - Paroxysmal atrial fibrillation Status: Acute Assessment and Plan: cont eliquis rate controlled Additional Plan possible lower extremity cellulitis: Patient was started on cefazolin in the emergency department for possible lower extremity cellulitis though her legs do not look overtly infected and findings are more consistent with her chronic stasis dermatitis. Wound nurse consulted for shallow ulcerations noted on the left leg especially. Her right great toenail is discolored and while she has a history of peripheral vascular disease this appears to be more related to a bruise as it does not karen and her toe has no discoloration or color change. We will continue to monitor that closely. Subjective Date/time seen: 12/20/21 12:05 Interval history: No overnight events. presented with congestive heart failure. Echo with ejection fraction 60-65% grade 2 diastolic dysfunction severe tricuspid regurgitation with moderate pulmonary hypertension. On chronic anticoagulation with Eliquis 5 mg b.i.d.. Transition to oral Bumex by jack spinner Who has been following the patient. renal function unstable. Cor pulmonale with severe pulmonary hypertension Chronic hypoxic respiratory failure with right ventricular enlargement. On home oxygen 6 L Noncompliance with diuretic therapy. Review of Systems Review of Systems: All systems reviewed & are unremarkable except as noted in HPI and below Exam Narrative: General: No acute distress, alert and oriented per baseline, on 6 L nasal cannula, which is her baseline HEENT: Atraumatic, normocephalic, mucous membranes moist CV: S1, S2, regular rate and rhythm, no murmurs rubs or gallops Lungs: Diminished at bases, good air entry Abdomen: Soft, nontender, nondistended Extremities: bilateral lower extremity edema with brawny induration with erythema no cyanosis or clubbing Skin: No rashes noted, no lesions or wounds seen Psych: Euthymic, normal affect Objective Data Vital Signs Vital Signs: Vital Signs - 24 hr 12/19/21 16:00 12/19/21 14:00 12/19/21 19:32 Temperature 98.5 F 97.1 F L Pulse Rate 75 72 75 Res
[2021-12-20] MEDS: POTASSIUM CHLORIDE 20 MEQ TABLET 40 MEQ PO (13:07)
[2021-12-20] MEDS: MELATONIN 5 MG TABLET 10 MG PO (20:13)
[2021-12-21] VITALS: PULSE 70
[2021-12-21] MEDS: HYDROcodone/acetaminophen (*CRX) 5-325 MG TABLET 1 TAB PO ×2 (01:09→06:43)
[2021-12-21 04:00] VITALS: PULSE 73
[2021-12-21 05:15] VITALS: BP 110/62; PULSE 73; RESP 16; TEMP 36.4; O2SAT 93
[2021-12-21] MEDS: LEVOTHYROXINE SODIUM 88 MCG TABLET PO (05:31)
[2021-12-21 06:32] LABS: Basophils Absolute Auto 0.1 K/mm3 (0.0-0.1); Basophils Percent Auto 0.6 % (0.2-1.2); Eosinophils Absolute Auto 0.5 K/mm3 (0-0.3); Eosinophils Percent Auto 5.9 % (0-4.4); Hematocrit 32.1 % (37.0-47.0); Hemoglobin 9.8 g/dL (12.0-15.0); Immature Granulocyte Absolute 0.04 K/mm3 (0.00-0.031); Immature Granulocyte Percent A 0.5 % (0-0.5); Lymphocytes Absolute Auto 1.12 K/mm3 (0.9-3.2); Lymphocytes Percent Auto 13.9 % (18.3-44.2); Mean Corpuscular HGB Conc 30.5 g/dl (32-36); Mean Corpuscular Hemoglobin 27.8 pg (26-34); Mean Corpuscular Volume 91.2 fl (80-100); Mean Platelet Volume 10.6 fl (7.4-10.4); Monocytes Absolute Auto 0.9 K/mm3 (0.1-0.6); Monocytes Percent Auto 11.4 % (2.6-8.5); Neutrophils Absolute Auto 5.5 K/mm3 (1.3-6.7); Neutrophils Percent Auto 67.7 % (45.5-73.1); Platelet Count Result 179 k/mm3 (150-375); Red Blood Count 3.52 M/mm3 (4.2-5.4); Red Cell Distribution Width 17.6 % (11.5-14.5); White Blood Count 8.1 K/mm3 (4.5-10.0)
[2021-12-21 07:04] LABS: Alanine Aminotransferase 10 U/L (6-35); Albumin Level 3.5 g/dL (3.5-5.1); Alkaline Phosphatase 81 U/L (38-126); Anion Gap 9 mmol/L (8-16); Aspartate Amino Transferase 23 U/L (14-36); Bilirubin,Total 1.1 mg/dL (0.2-1.3); Blood Urea Nitrogen 21 mg/dL (7-17); Calcium 8.7 mg/dL (8.4-10.2); Carbon Dioxide 31 mmol/L (22-30); Chloride 91 mmol/L (98-107); Estimated CRCL calculation 38 ml/min; Estimated Glomerular Filt Rate 39; Glucose 90 mg/dL (65-110); Magnesium 1.9 mg/dL (1.6-2.3); Potassium 3.5 mmol/L (3.4-5.0); Sodium 131 mmol/L (137-145)
[2021-12-21] MEDS: POTASSIUM CHLORIDE 20 MEQ TABLET.ER 40 MEQ PO (08:23)
[2021-12-21] MEDS: ESCITALOPRAM OXALATE 10 MG TABLET 20 MG PO (08:23)
[2021-12-21] MEDS: amLODIPine BESYLATE 5 MG TABLET 10 MG PO (08:23)
[2021-12-21] MEDS: APIXABAN 5 MG TABLET PO (08:24)
[2021-12-21] MEDS: ASPIRIN 81 MG ENTERIC TABLET PO (08:24)
[2021-12-21] MEDS: ROSUVASTATIN 5 MG TABLET PO (08:24)
[2021-12-21] MEDS: BUMETANIDE 1 MG TABLET 2 MG PO (08:24)
[2021-12-21 08:25] VITALS: PULSE 77; O2SAT 95
--- NOTE | 2021-12-21 09:01 | PCPTNOTE ---
Patient refused treatment this session. Patient reported she just got done with breakfast and wanted breakfast to settle first. Encouraged patient to participated, patient continued to refuse and stated, I just don't want to.
--- NOTE | 2021-12-21 09:02 | PM.PNCARD ---
Progress Note: A&P Assessment and Plan (1) Right-sided heart failure: Code(s): I50.810 - Right heart failure, unspecified Status: Acute Assessment and Plan: History essentially of cor pulmonale with severe pulmonary hypertension related chronic hypoxic respiratory failure with RV enlargement admitted with worsening lower extremity edema shortness breath secondary to noncompliance with diuretic therapy.? She has preserved LV systolic function. She has been shifted to p.o. Bumex. This should be continued at discharge. BMP stable this morning Reviewed importance of compliance with medication, low sodium intake, management of chronic hypoxic respiratory failure.? OK for discharge home today from a cardiac perspective (2) Chronic respiratory failure with hypoxia, on home oxygen therapy: Code(s): J96.11 - Chronic respiratory failure with hypoxia; Z99.81 - Dependence on supplemental oxygen Status: Acute Assessment and Plan: On supplemental O2. Pulmonology following. Subjective Date/time seen: 12/21/21 09:02 Cardiology follow up for CHF Feels good this morning. Breathing is at her baseline. Denies any significant dyspnea, no palpitations, no chest pain. Swelling maybe slightly improved. Review of Systems Review of Systems: All systems reviewed & are unremarkable except as noted in HPI and below Constitutional: Constitutional: Reports as per HPI and Reports no additional constitutional complaints Eyes: Eyes: Reports as per HPI and Reports no additional eye complaints ENT: Reports system reviewed and no additional complaints, except as documented and Reports as per HPI Cardiovascular: Cardiovascular: Reports as per HPI and Reports no additional cardiovascular complaints Respiratory: Respiratory: Reports as per HPI and Reports no additional respiratory complaints Gastrointestinal: Gastrointestinal: Reports as per HPI and Reports no additional gastrointestinal complaints Genitourinary: Genitourinary: Reports as per HPI Musculoskeletal: Musculoskeletal: Reports no additional musculoskeletal complaints and Reports as per HPI Integumentary/Breasts: Skin/Breast: Reports system reviewed and no additional complaints, except as docu and Reports as per HPI Neurologic: Reports system reviewed and no additional complaints, except as documented and Reports as per HPI Psychiatric: Psychiatric: Reports no additional psychiatric complaints and Reports as per HPI Endocrine: Endocrine: Reports no additional endocrine complaints and Reports as per HPI Hematologic/Lymphatic: Hematologic/Lymphatic: Reports no additional hematologic/lymphatic complaints and Reports as per HPI Allergic/Immunologic: Allergic/Immunologic: Reports no additional allergic/immunologic complaints and Reports as per HPI Exam Const: General: comfortable, no acute distress, alert and awake Nutritional Appearance: obese Orientation/consciousness: patient oriented x3 Other: Pleasant, obese female sitting up in the chair HENMT: Head: normal to inspection Eyes: General: appearance normal, both eyes and all related structures Pupils: Equal, round and reactive pupils present Neck: Neck: normal visual inspection, supple and no JVD Carotids: normal carotid upstroke Other: Difficult to assess for JVD given body habitus Resp: Effort & Inspection: abnormal respiratory effort, able to speak in complete sentences and no respiratory distress Auscultation: clear to auscultation bilaterally and diminished lung sounds Cardio: Rate: regular rate Rhythm: regular rhythm Heart sounds: S1 normal heart sound present, S2 normal heart sound present and no murmurs Other: distant heart sounds GI: Auscultation: normal bowel sounds Skin: General skin exam: normal color Neuro: General: patient oriented x3 Cranial nerves: Yes Equal, round and reactive pupils present Extrem: General: normal to inspection Psych:
[2021-12-21] MEDS: LIDOCAINE 5% PATCH 3 PATCH TRANSDERM (09:11)
[2021-12-21 12:00] VITALS: PULSE 81; O2SAT 92
[2021-12-21 14:00] VITALS: BP 114/59; PULSE 73; RESP 16; TEMP 36.4; O2SAT 95
--- NOTE | 2021-12-21 14:05 | PM.DS ---
DS: Admitting Diagnosis Discharge Date 12/21/2021 Admitting Diagnosis shortness of breath DS: Discharge Diagnosis Discharge Diagnosis (1) Right-sided heart failure: Code(s): I50.810 - Right heart failure, unspecified Status: Acute Assessment and Plan: Echo demonstrates left ventricular systolic function is normal with an ejection fraction of 60-65%.? There is grade 2 diastolic dysfunction and moderate pulmonary hypertension. started on IV diuresis Weight is down Monitor I and O Bumex changed to oral by cowlman (2) Acute on chronic kidney failure: Qualifiers: Acute renal failure type: unspecified Chronic kidney disease stage: stage 3 (moderate) Chronic kidney disease stage 3 subtype: unspecified whether 3a or 3b Qualified Code(s): N17.9 - Acute kidney failure, unspecified; N18.30 - Chronic kidney disease, stage 3 unspecified Code(s): N17.9 - Acute kidney failure, unspecified; N18.9 - Chronic kidney disease, unspecified Status: Acute Assessment and Plan: creatinine overall stable with diuresis (3) Hypokalemia: Code(s): E87.6 - Hypokalemia Status: Resolved Assessment and Plan: replace and recheck and monitor (4) Hypertension: Code(s): I10 - Essential (primary) hypertension Status: Acute Assessment and Plan: stable (5) Wound of lower extremity: Code(s): S81.809A - Unspecified open wound, unspecified lower leg, initial encounter Status: Acute Assessment and Plan: monitor, receiving antifungal ointment (6) Chronic respiratory failure with hypoxia, on home oxygen therapy: Code(s): J96.11 - Chronic respiratory failure with hypoxia; Z99.81 - Dependence on supplemental oxygen Status: Acute Assessment and Plan: stable on 6L nc which is the patient's baseline (7) Paroxysmal atrial fibrillation: Code(s): I48.0 - Paroxysmal atrial fibrillation Status: Acute Assessment and Plan: cont eliquis rate controlled DS: Summary Hospital Course Hospital Course: # acute on chronic congestive heart failure echo normal ejection fraction 60-65% grade 2 diastolic dysfunction with moderate pulmonary hypertension. Patient was started on IV diuresis. Weight is down. Monitor I and O. she was eventually changed to oral and will be discharged home on oral diuretic along with potassium supplement. home health be arranged at discharge to continue to follow for progression in monitoring # acute on chronic renal failure creatinine overall stable with diuresis # hypokalemia replace and monitor # hypertension stable # lower extremity wound with swelling venous duplex was done which came back negative for DVT. Patient was started initially on cefazolin from the ED for possible lower extremity cellulitis however legs do not look overtly infected and finding more consistent with chronic stasis dermatitis. Wound nurse consult for show ulceration noted on the left leg. She does have history of peripheral vascular disease. These were monitored throughout the hospital stay. # chronic respiratory failure with hypoxia on 6 L oxygen which is her baseline and remained on 6 L during the hospital stay / by the time of discharge. # hypothyroidism newly diagnosed is high. Started on levothyroxine 88 mcg daily. TSH repeated in 6-8 weeks. # paroxysmal atrial fibrillation rate controlled. She was discussed anticoagulation with Eliquis 5 mg b.i.d. which was started during the hospital stay. Due to this her Plavix was discontinued during the hospital stay. # DVT prophylaxis started on Eliquis as delineated above # code status full code Time Spent with Patient Time attestation: Total time spent providing and/or coordinating discharge services: 50 minutes Exam Narrative: General: No acute distress, alert and oriented per baseline, on 6 L nasal cannula, which is her baseline HEENT: Atraumatic, normocephalic
[2021-12-21] MEDS: FLUTICASONE/UMECLIDIN/VILANTER 100-62.5-25 MCG ELLIPTA 1 PUFF INHALATION (14:39)
== END 2021-12-21 18:33 | disposition home health service (06) | DRG 291 ==
LOC: ANHED 15:20 → ANH2MED 15:42
PROVIDERS: Nurse Practitioner; Nurse Practitioner Adult Health; Physician Assistant; Student in an Organized Health Care Education/Training Program; Admitting Provider Internal Medicine; Emergency Provider Emergency Medicine; PCP Family Medicine; Visit Provider Internal Medicine
DX: I13.0 Hypertensive heart and chronic kidney disease with heart failure and stage 1 through stage 4 chronic kidney disease, or unspecified chronic kidney disease (principal); I50.33 Acute on chronic diastolic (congestive) heart failure; N17.9 Acute kidney failure, unspecified; J96.11 Chronic respiratory failure with hypoxia; Z68.42 Body mass index [BMI] 45.0-49.9, adult; L97.929 Non-pressure chronic ulcer of unspecified part of left lower leg with unspecified severity; Z91.14 Patient's other noncompliance with medication regimen; Z20.822 Contact with and (suspected) exposure to COVID-19; I87.2 Venous insufficiency (chronic) (peripheral); N18.30 Chronic kidney disease, stage 3 unspecified; S90.211A Contusion of right great toe with damage to nail, initial encounter; X58.XXXA Exposure to other specified factors, initial encounter; E87.6 Hypokalemia; I48.0 Paroxysmal atrial fibrillation; I27.81 Cor pulmonale (chronic); J44.9 Chronic obstructive pulmonary disease, unspecified; E03.9 Hypothyroidism, unspecified; I73.9 Peripheral vascular disease, unspecified; H40.9 Unspecified glaucoma; Z99.81 Dependence on supplemental oxygen; Z95.820 Peripheral vascular angioplasty status with implants and grafts; Z98.42 Cataract extraction status, left eye; Z98.41 Cataract extraction status, right eye; Z87.891 Personal history of nicotine dependence; E66.01 Morbid (severe) obesity due to excess calories
CPT/HCPCS: 36415; 36600; 71045; 71275; 80048; 80053; 82805; 83605; 83735; 83880; 84439; 84443; 84480; 84484; 85025; 85027; 85610; 85730; 87040; 93005; 93306; 93970; 94640; 96365; 96366; 96375; 96376; 97110; 97161; 97165; 97530; 97535; 99285; A9270; C9803; G0378; J0690; J1650; J1885; J1940; J3475; Q9967; U0003; U0005